=== PATIENT | female | born 1970 | race Caucasian/White ===

== ENCOUNTER 2017-06-28 12:07 | Emergency (ER) | payer SELFPAY ==
--- NOTE | 2017-06-28 12:22 | EDM.PDOC ---
ED HPI GENERAL MEDICAL PROBLEM - General Chief Complaint: Lower Extremity Injury/Pain Stated Complaint: GLASS IN HER LEFT FOOT Time Seen by Provider: 06/28/17 12:21 Source of Information: Reports: Patient History Limitations: Reports: No Limitations - History of Present Illness INITIAL COMMENTS - FREE TEXT/NARRATIVE: HISTORY AND PHYSICAL: []46-year-old female presents for pain to her foot and up her leg History of Present Illness: [] Patient stepped on a piece of glass from a broken carousel a week and a half ago. The mid ball of her foot as were the pieces is located. Patient says her and his friend tried to get out a couple days ago. She continues to have pain. History of hypertension Review of Systems: As per history of present illness and below otherwise all systems reviewed and negative. Past medical history: As per history of present illness and as reviewed below otherwise noncontributory. Surgical history: As per history of present illness and as reviewed below otherwise noncontributory. Social history: No reported history of drug or alcohol abuse. Family history: As per history of present illness and as reviewed below otherwise noncontributory. Physical exam: Alert and oriented female with good affect. Nontoxic. Speaking in full sentences without any shortness of breath HEENT: Atraumatic, normocehpalic, pupils reactive, negative for conjunctival pallor or scleral icterus, mucous membranes moist, neck supple, nontender, trachea midline. Lungs: Clear to auscultation, breath sounds equal bilaterally, chest non tender. Heart: S1S2, regular, negative for clicks, rubs, or JVD. Abdomen: Soft, nondistended, nontender. Negative for masses or hepatossplenmegaly. Negative for costovertebral tenderness. Pelvis: Stable nontender. Genitourinary: Deferred. Rectal: Deferred Extremities: Atraumatic, negative for cords or calf pain. Mid ball of her left foot has area where the skin has been compromised. Mild tenderness on palpation. Neurovascular unremarkable. Neuro: Awake, alert, oriented. Cranial nerves II through XII unremarkable. Cerebellum unremarkable. Motor and sensory unremarkable throughout. Exam nonfocal. Discussed with the patient the x-ray review and that I do not want to "Dig" into her foot without knowing where something is. Patient is agreeable to watching this area Diagnostics: [Left foot x-ray negative for any foreign body] Therapeutics: [] Impression: [Foreign-body to foot has been removed prior to arrival in ER] Plan: []Discharged to home May follow up with local painter spray My [facility] - Podiatry [address] [place] [id number] Definitive disposition and diagnosis as appropriate pending reevaluation and review of above. Onset: Sudden Duration: Week(s): (1.5 weeks ago) Left Foot Pain Score (Numeric/FACES): 9 - Related Data Allergies Allergy/AdvReac Type Severity Reaction Status Date / Time Penicillins Allergy Anaphylactic Verified 06/28/17 12:18 Shock Sulfa (Sulfonamide Allergy Anaphylactic Verified 06/28/17 12:18 Antibiotics) Shock apple juice Allergy Anaphylactic Uncoded 06/28/17 12:18 Shock Home Meds: Home Meds Hydrochlorothiazide 0 mg PO DAILY 06/28/17 [History] amLODIPine [Norvasc] 0 mg PO DAILY 06/28/17 [History] Review of Systems - Review of Systems Review Of Systems: ROS reveals no pertinent complaints other than HPI. ED EXAM, GENERAL - Physical Exam Exam: See Below (See dictation) Course - Vital Signs Last Recorded V/S: Last Vital Signs Temp 36.2 C 06/28/17 12:20 Pulse 92 06/28/17 12:20 Resp 18 06/28/17 12:20 BP 136/88 06/28/17 12:20 Pulse Ox 97 06/28/17 12:20 - Orders/Labs/Meds Orders: Active Orders 24 hr Category Date Time Status Vaccines to be Administered [RC] PER UNIT ROUTINE Care 06/28/17 12:29 Active Foot 2V Lt [CR] Stat Exams 06/28/17 12:38 Taken Meds: Medications Discontinued Medications Generic Name Dose Route Start Last Admin Trade Name Freq PRN Reason Stop Dose Admin Diphtheria/Tetanus/Acell Pertussis 0.5 ml 06/28/17 12:29 06/28/17 12:35 Adacel IM 06/28/17 12:30 0.5 ml .ONCE ONE Administration Departure - Departure Time of Disposition: 13:16 Disposition: Home, Self-Care 01 Condition: Good Clinical Impression: Foreign body foot/toe - Discharge Information Referrals: Brynn Tee DO [Primary Care Provider] - Forms: ED Department Discharge Additional Instructions: The following information is given to patients seen in the emergency department who are being discharged to home. This information is to outline your options for follow-up care. We provide all patients seen in our emergency department with a follow-up referral. The need for follow-up, as well as the timing and circumstances, are variable depending upon the specifics of your emergency department visit. If you don't have a primary care physician on staff, we will provide you with a referral. We always advise you to contact your personal physician following an emergency department visit to inform them of the circumstance of the visit and for follow-up with them and/or the need for any referrals to a consulting specialist. The emergency department will also refer you to a specialist when appropriate. This referral assures that you have the opportunity for followup care with a specialist. All of these measure are taken in an effort to provide you with optimal care, which includes your followup. Under all circumstances we always encourage you to contact your private physician who remains a resource for coordinating your care. When calling for followup care, please make the office aware that this follow-up is from your recent emergency room visit. If for any reason you are refused follow-up, please contact the [facility] emergency department at and asked to speak to the emergency department charge nurse. The x-ray obtained while in the emergency room does not show any foreign body to your foot If you continue to have problems with this area would consider seeing a painter spray My [facility] - Podiatry [address] [place] [phone] - My Orders Last 24 Hours: My Active Orders 06/28/17 12:29 Vaccines to be Administered [RC] PER UNIT ROUTINE 06/28/17 12:38 Foot 2V Lt [CR] Stat - Assessment/Plan Last 24 Hours: My Active Orders 06/28/17 12:29 Vaccines to be Administered [RC] PER UNIT ROUTINE 06/28/17 12:38 Foot 2V Lt [CR] Stat
[2017-06-28] MEDS ORDERED: Diphtheria,Pertussis(Acell),Tetanus Vaccine 0.5 ML Syringe IM ONE (12:29)
[2017-06-28 13:31] VITALS: BP 135/88
--- NOTE | 2017-06-28 14:04 | CR ---
EXAM DATE: 06/28/17 PATIENT'S AGE: 46 Patient: LATRICE SALDIVAR Facility: [place], [place] Site . Site : [id number] Study: XRay Extremity Left FOOT [id number]/30/2017 12:57:38 PM Ordering Physician: Doctor Aceves Final Report: HISTORY: Pain, glass in foot. FINDINGS: Two views of the left foot demonstrates normal bone mineralization. There is normal alignment present. No fracture line is seen. There is a small traction spur at the plantar aspect of the calcaneus. No radiopaque foreign body is identified. IMPRESSION: No radiopaque foreign body identified. Dictated by Vaishali Lombardi MD @ 06/28/2017 1:06:11 PM Dictated by: Vaishali Lombardi MD @ 06/28/2017 13:06:32 (Electronic Signature) Report Signed by Proxy. ENOC
== END 2017-06-28 13:27 | disposition home or self-care (01) ==
LOC: MW.ED 12:07
DX: S90.852A Superficial foreign body, left foot, initial encounter (principal); I10 Essential (primary) hypertension; Z79.899 Other long term (current) drug therapy; Z23 Encounter for immunization; Z88.0 Allergy status to penicillin; Z88.2 Allergy status to sulfonamides; Z91.018 Allergy to other foods; W25.XXXA Contact with sharp glass, initial encounter
CPT/HCPCS: 73620-26-LT; 73620-LT; 90471; 90715; 99283; 99283-25

== ENCOUNTER 2020-01-30 21:15 | Emergency (ER) | payer OTHER ==
[2020-01-30] MEDS ORDERED: Sodium Chloride 0.9% 500 ML IV SCH (21:30)
[2020-01-30] MEDS ORDERED: methylPREDNISolone Sodium Succinate 125 MG/2 ML SDV IVPUSH ONE (21:30)
[2020-01-30] MEDS ORDERED: LORazepam 2 MG/ML SDV IVPUSH ONE (21:55)
[2020-01-30 22:16] LABS: BLOOD UREA NITROGEN,BUN 9 mg/dL (7.0-18.0); CARBON DIOXIDE,CO2 28.2 mmol/L (21.0-32.0); CHLORIDE,CL 97 mmol/L (98-107); GLUCOSE RANDOM 121 mg/dL (74-106); POTASSIUM,K 3.8 mmol/L (3.5-5.1); SODIUM,NA 136 mmol/L (136-145)
--- NOTE | 2020-01-30 22:46 | EDM.PDOC ---
ED HPI GENERAL MEDICAL PROBLEM - General Chief Complaint: Respiratory Problem Stated Complaint: CHEST PAIN AND HARD TIME BREATHING Time Seen by Provider: 01/30/20 21:17 Source of Information: Reports: Patient History Limitations: Reports: No Limitations - History of Present Illness INITIAL COMMENTS - FREE TEXT/NARRATIVE: 49-year-old female presents the emergency room with a chief complaint of asthma exacerbation 4 times tonight. Onset: Today Duration: Day(s): Location: Reports: Chest Severity: Mild Associated Symptoms: Reports: Cough - Related Data Allergies Allergy/AdvReac Type Severity Reaction Status Date / Time Penicillins Allergy Anaphylactic Verified 01/30/20 21:26 Shock Sulfa (Sulfonamide Allergy Anaphylactic Verified 01/30/20 21:26 Antibiotics) Shock apple juice Allergy Anaphylactic Uncoded 01/30/20 21:26 Shock Home Meds: Home Meds amLODIPine [Norvasc] 0 mg PO DAILY 06/28/17 [History] hydroCHLOROthiazide [Hydrochlorothiazide] 0 mg PO DAILY 06/28/17 [History] Past Medical History HEENT History: Reports: None Cardiovascular History: Reports: Blood Clots/VTE/DVT, Hypertension Other Cardiovascular History: DVT L thigh Respiratory History: Reports: Asthma Gastrointestinal History: Reports: None Genitourinary History: Reports: None [employer] History: Reports: Musculoskeletal History: Reports: Back Pain, Chronic Neurological History: Reports: None Psychiatric History: Reports: Anxiety, Depression Endocrine/Metabolic History: Reports: None Hematologic History: Reports: None Immunologic History: Reports: None Oncologic (Cancer) History: Reports: None Dermatologic History: Reports: None - Infectious Disease History Infectious Disease History: Reports: Chicken Pox - Past Surgical History Head Surgeries/Procedures: Reports: None Musculoskeletal Surgical History: Reports: Other (See Below) Other Musculoskeletal Surgeries/Procedures:: knee sx Social & Family History - Family History Family Medical History: Noncontributory - Tobacco Use Smoking Status *Q: Former Smoker Used Tobacco, but Quit: Yes Month/Year Tobacco Last Used: 01/27/2020 - Recreational Drug Use Recreational Drug Use: No ED ROS GENERAL - Review of Systems Review Of Systems: See Below Constitutional: Reports: No Symptoms HEENT: Reports: No Symptoms Respiratory: Reports: No Symptoms, Wheezing, Cough Cardiovascular: Reports: No Symptoms Endocrine: Reports: No Symptoms GI/Abdominal: Reports: No Symptoms : Reports: No Symptoms Musculoskeletal: Reports: No Symptoms Skin: Reports: No Symptoms Neurological: Reports: No Symptoms Psychiatric: Reports: No Symptoms Hematologic/Lymphatic: Reports: No Symptoms Immunologic: Reports: No Symptoms ED EXAM, GENERAL - Physical Exam Exam: See Below Exam Limited By: No Limitations General Appearance: Alert, WD/WN, No Apparent Distress Eye Exam: Bilateral Eye: Normal Fundi, Normal Inspection Ears: Normal External Exam, Normal Canal, Normal TMs Ear Exam: Bilateral Ear: Auricle Normal, Canal Normal Nose: Normal Inspection, Normal Mucosa Throat/Mouth: Normal Inspection, Normal Lips, Normal Teeth, Normal Oropharynx, Normal Voice Head: Atraumatic, Normocephalic Neck: Normal Inspection, Supple Respiratory/Chest: No Respiratory Distress, Lungs Clear, Normal Breath Sounds, No Accessory Muscle Use, Chest Non-Tender GI/Abdominal: Normal Bowel Sounds (Female) Exam: Deferred Rectal (Female) Exam: Deferred Back Exam: Normal Inspection, Full Range of Motion Extremities: Normal Inspection, Normal Range of Motion, No Pedal Edema, Normal Capillary Refill Neurological: Alert, Oriented, CN II-XII Intact, Normal Cognition, Normal Reflexes, No Motor/Sensory Deficits Psychiatric: Normal Affect, Normal Mood Skin Exam: Warm, Intact, Normal Color, Decubitus Lymphatic: No Adenopathy Course - Vital Signs Last Recorded V/S: Last Vital Signs Temp 96.3 F L 01/30/20 21:23 Pulse 85 01/30/20 21:23 Resp 18 01/30/20 21:23 BP 168/93 H 01/30/20 21:23 Pulse Ox 97 01/30/20 21:23 - Orders/Labs/Meds Orders: Active Orders 24 hr Category Date Time Status Sodium Chloride 0.9% [Normal Saline] 500 ml Med 01/30/20 21:30 Active IV ASDIRECTED Medication Orders Sodium Chloride (Normal Saline) 500 mls @ 150 mls/hr IV ASDIRECTED JENNIFER Last Admin: 01/30/20 21:47 Dose: 150 mls/hr Labs: Laboratory Tests 01/30/20 01/30/20 Range/Units 21:47 21:47 WBC 11.94 H (4.0-11.0) K/uL RBC 4.24 L (4.30-5.90) M/uL Hgb 12.5 (12.0-16.0) g/dL Hct 39.2 (36.0-46.0) % MCV 92.5 (80.0-98.0) fL MCH 29.5 (27.0-32.0) pg MCHC 31.9 (31.0-37.0) g/dL RDW Std Deviation 44.1 (28.0-62.0) fl RDW Coeff of Akash 13 (11.0-15.0) % Plt Count 604 H (150-400) K/uL MPV 9.00 (7.40-12.00) fL Neut % (Auto) 72.4 (48.0-80.0) % Lymph % (Auto) 18.3 (16.0-40.0) % Gentry % (Auto) 7.2 (0.0-15.0) % Eos % (Auto) 1.8 (0.0-7.0) % Baso % (Auto) 0.3 (0.0-1.5) % Neut # (Auto) 8.7 H (1.4-5.7) K/uL Lymph # (Auto) 2.2 (0.6-2.4) K/uL Gentry # (Auto) 0.9 H (0.0-0.8) K/uL Eos # (Auto) 0.2 (0.0-0.7) K/uL Baso # (Auto) 0.0 (0.0-0.1) K/uL Nucleated RBC % 0.0 /100WBC Nucleated RBCs # 0 K/uL Sodium 136 (136-145) mmol/L Potassium 3.8 (3.5-5.1) mmol/L Chloride 97 L (98-107) mmol/L Carbon Dioxide 28.2 (21.0-32.0) mmol/L BUN 9 (7.0-18.0) mg/dL Creatinine 0.8 (0.6-1.0) mg/dL Est Cr Clr Drug Dosing 70.33 mL/min Estimated GFR (MDRD) > 60.0 ml/min Glucose 121 H (74-106) mg/dL Calcium 9.5 (8.5-10.1) mg/dL Total Bilirubin 0.1 L (0.2-1.0) mg/dL AST 13 L (15-37) IU/L ALT 24 (14-63) IU/L Alkaline Phosphatase 102 (46-116) U/L Total Protein 7.7 (6.4-8.2) g/dL Albumin 3.1 L (3.4-5.0) g/dL Globulin 4.6 H (2.6-4.0) g/dL Albumin/Globulin Ratio 0.7 L (0.9-1.6) Meds: Medications Generic Name Dose Route Start Last Admin Trade Name Freq PRN Reason Stop Dose Admin Sodium Chloride 500 mls @ 150 mls/hr 01/30/20 21:30 01/30/20 21:47 Normal Saline IV 150 mls/hr ASDIRECTED JENNIFER Administration Discontinued Medications Generic Name Dose Route Start Last Admin Trade Name Freq PRN Reason Stop Dose Admin Lorazepam 0.5 mg 01/30/20 21:55 01/30/20 22:04 Ativan IVPUSH 01/30/20 21:56 0.5 mg ONETIME ONE Administration Methylprednisolone Sodium Succinate 125 mg 01/30/20 21:30 01/30/20 21:47 Solu-Medrol IVPUSH 01/30/20 21:31 125 mg ONETIME ONE Administration Departure - Departure Time of Disposition: 22:45 Disposition: Home, Self-Care 01 Condition: Good Clinical Impression: Acute asthma - Discharge Information Instructions: Shortness of Breath, Adult, [id number], Acute Bronchitis, Adult , [id number] Referrals: Brynn Tee DO [Primary Care Provider] - Sepsis Event Note - Evaluation Sepsis Screening Result: No Definite Risk - Focused Exam Vital Signs: Vital Signs Temp Pulse Resp BP Pulse Ox 01/30/20 21:23 96.3 F L 85 18 168/93 H 97 Date Exam was Performed: 01/30/20 Time Exam was Performed: 22:41 - My Orders Last 24 Hours: My Active Orders 01/30/20 21:30 Sodium Chloride 0.9% [Normal Saline] 500 ml IV ASDIRECTED - Assessment/Plan Last 24 Hours: My Active Orders 01/30/20 21:30 Sodium Chloride 0.9% [Normal Saline] 500 ml IV ASDIRECTED
[2020-01-30 23:14] VITALS: BP 140/79; PULSE 78
== END 2020-01-30 23:13 | disposition home or self-care (01) ==
LOC: MW.ED 21:15
DX: J45.909 Unspecified asthma, uncomplicated (principal); I10 Essential (primary) hypertension; Z88.0 Allergy status to penicillin; Z88.2 Allergy status to sulfonamides; Z91.018 Allergy to other foods; Z87.891 Personal history of nicotine dependence
CPT/HCPCS: 36415; 80053; 85025; 96361; 96374; 96375; 99284; J2060; J2930; J7030

== ENCOUNTER 2020-08-14 15:02 | Inpatient (IN) | payer OTHER ==
[2020-08-14] MEDS ORDERED: Sodium Chloride 0.9% 1,000 ML IV ONE (15:43)
[2020-08-14] MEDS ORDERED: Ondansetron 4 MG/2 ML SDV IVPUSH ONE (15:45)
[2020-08-14] MEDS ORDERED: Morphine 4 MG/ML Syringe IVPUSH ONE (15:45)
[2020-08-14 16:40] LABS: CARBON DIOXIDE,CO2 28.7 mmol/L (21.0-32.0); POTASSIUM,K 3.6 mmol/L (3.5-5.1)
[2020-08-14] MEDS ORDERED: Iopamidol 755 MG/ML 500 ML Multipack Bottle IVPUSH ONE (17:04)
--- NOTE | 2020-08-14 18:08 | EDM.PDOC ---
ED HPI GENERAL MEDICAL PROBLEM - General Chief Complaint: Gastrointestinal Problem Stated Complaint: SEVERE ABDOMINAL PAIN Time Seen by Provider: 08/14/20 15:07 Source of Information: Reports: Patient History Limitations: Reports: No Limitations - History of Present Illness INITIAL COMMENTS - FREE TEXT/NARRATIVE: HISTORY AND PHYSICAL: History of present illness: Patient is a 49-year-old female who presents to the emergency room with complaints of intermittent abdominal pain over the past 5 days. She states the pain is sharp stabbing pain that "comes in waves". States that is located in the umbilical region although does radiate variously throughout her abdomen. She has had nausea, vomiting and diarrhea. Patient denies any fever, chills, headache, change in vision, syncope or near syncope. Denies any chest pain, back pain, shortness of breath or cough. Denies any concerns of STDs, chance of or dysuria. Has not noted any blood in urine or stool. Denies any vaginal discharge or bleeding. Patient has been eating and drinking appropriately. Review of systems: As per history of present illness and below otherwise all systems reviewed and negative. Past medical history: As per history of present illness and as reviewed below otherwise noncontributory. Surgical history: As per history of present illness and as reviewed below otherwise noncontri butory. Social history: See social history for further information Family history: As per history of present illness and as reviewed below otherwise noncontributory. Physical exam: General: Well developed and well nourished. Alert and orientated x 3. Nontoxic in appearance and in no acute distress. Vital signs are stable and have been reviewed by me. Nursing notes were reviewed. HEENT: Atraumatic, normocephalic, pupils equal and reactive bilaterally, negative for conjunctival pallor or scleral icterus, mucous membranes moist, TMs normal bilaterally, throat clear, neck supple, nontender, trachea midline. No drooling or trismus noted. No meningeal signs. No hot potato voice noted. Lungs: Clear to auscultation, breath sounds equal bilaterally, chest nontender. Normal work of breathing, no accessory muscles used. Heart: S1S2, regular rate and rhythm without overt murmur Abdomen: Soft, nondistended, mid abdominal tenderness. Negative for masses or hepatosplenomegaly. Negative for costovertebral tenderness. Skin: Intact, warm, dry. No lesions or rashes noted. Hematologic: No petechiae or purpra. Mucosa appropriate color and normal nail bed color and refill. Extremities: Atraumatic, moves all extremities per self without difficulty or deficits, negative for cords or calf pain. Neurovascular unremarkable. Neuro: Awake, alert, oriented. Cranial nerves II through XII unremarkable. Cerebellum unremarkable. Motor and sensory unremarkable throughout. Exam nonfocal. Psychiatric: Mood and affect are appropriate. Normal thought process. Answering questions appropriately. Notes: Findings likely represent acute diverticulitis with a small abscess formation. There is mild fluid-filled distention of the more proximal colon. The transition between the normal colon and area of abnormality is fairly abrupt. Although unlikely, neoplasm cannot be entirely excluded and colonoscopy is recommended for further evaluation after the patient's acute symptoms have resolved. I did contact Dr. Bone, general surgeon on-call about this patient. She will come in and look at the patient's CT scan and evaluate this patient. I have spoken with the patient/caregiver and discussed today's findings, in addition to providing specific details for plan of care. 1900: Lizandro in with patient. Patient will be admitted with IV antibiotics for observation. Diagnostics: CBC, CMP, UA, Lipase, CT abd/pelvis Therapeutics: IV fluids, Zofran, Dilaudid, Cipro, Flagyl Impression: Acute diverticulitis Plan: Observation admission to Med/Surg Definitive disposition and diagnosis as appropriate pending reevaluation and review of above. - Related Data Allergies Allergy/AdvReac Type Severity Reaction Status Date / Time diphenhydramine Allergy Other Verified 08/14/20 19:44 [From Benadryl] Penicillins Allergy Anaphylactic Verified 08/14/20 15:42 Shock Sulfa (Sulfonamide Allergy Anaphylactic Verified 08/14/20 15:42 Antibiotics) Shock apple juice Allergy Anaphylactic Uncoded 08/14/20 15:42 Shock Home Meds: Home Meds hydroCHLOROthiazide [Hydrochlorothiazide] 0 mg PO DAILY 06/28/17 [History] Magnesium 250 mg PO DAILY 08/14/20 [History] Nebivolol [Bystolic] 15 mg PO DAILY 08/14/20 [History] Potassium Chloride 10 meq PO DAILY 08/14/20 [History] buPROPion [buPROPion XL] 300 mg PO BEDTIME 08/14/20 [History] Past Medical History HEENT History: Reports: None Cardiovascular History: Reports: Blood Clots/VTE/DVT, Hypertension Other Cardiovascular History: DVT L thigh Respiratory History: Reports: Asthma Gastrointestinal History: Reports: None Genitourinary History: Reports: None 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 History: Reports: Musculoskeletal History: Reports: Back Pain, Chronic Neurological History: Reports: None Psychiatric History: Reports: Anxiety, Depression Endocrine/Metabolic History: Reports: None Hematologic History: Reports: None Immunologic History: Reports: None Oncologic (Cancer) History: Reports: None Dermatologic History: Reports: None - Infectious Disease History Infectious Disease History: Reports: Chicken Pox - Past Surgical History Head Surgeries/Procedures: Reports: None Musculoskeletal Surgical History: Reports: Other (See Below) Other Musculoskeletal Surgeries/Procedures:: knee sx Social & Family History - Family History Family Medical History: Noncontributory - Tobacco Use Tobacco Use Status *Q: Unknown Ever Used Tobacco ED ROS GENERAL - Review of Systems Review Of Systems: Comprehensive ROS is negative, except as noted in HPI. ED EXAM, GI/ABD - Physical Exam Exam: See Below (See dictation) Course - Vital Signs Last Recorded V/S: Last Vital Signs Temp 96.6 F L 08/14/20 19:26 Pulse 69 08/14/20 19:26 Resp 18 08/14/20 19:26 BP 110/55 L 08/14/20 19:26 Pulse Ox 92 L 08/14/20 19:26 - Orders/Labs/Meds Orders: Active Orders 24 hr Category Date Time Status Patient Status [ADT] Routine ADT 08/14/20 19:29 Active Antiembolic Devices [RC] .Routine Care 08/14/20 19:34 Active Intake and Output [RC] Q4HR Care 08/14/20 19:29 Active May Shower [RC] ASDIRECTED Care 08/14/20 19:29 Active Notify Provider Intake and Out [RC] PRN Care 08/14/20 19:30 Active Notify Provider Vital Signs [RC] PRN Care 08/14/20 19:30 Active Oxygen Therapy [RC] PRN Care 08/14/20 19:29 Active RT Aerosol Therapy [RC] ASDIRECTED Care 08/14/20 19:41 Active RT Incentive Spirometry [RC] Q1HWA Care 08/14/20 19:29 Active Up ad Letha [RC] ASDIRECTED Care 08/14/20 19:29 Active VTE/DVT Education [RC] PER UNIT ROUTINE Care 08/14/20 19:34 Active Vital Signs [RC] PER UNIT ROUTINE Care 08/14/20 19:29 Active Nothing Per Oral Diet [DIET] Diet 08/14/20 Dinner Active CAMPYLOBACTER CULT [MREF] Stat Lab 08/14/20 15:43 Ordered CBC WITH AUTO DIFF [HEME] AM Lab 08/15/20 05:11 Ordered CMP [COMPREHENSIVE METABOLIC PN,CMP] [CHEM] AM Lab 08/15/20 05:11 Ordered CORONAVIRUS COVID-19 DUNIA [MOLEC] Stat Lab 08/14/20 19:25 Received OVA & PARASITES BY IMMUNOASSAY [MREF] Stat Lab 08/14/20 15:43 Ordered STOOL CULTURE/SHIGA TOXIN [MREF] Stat Lab 08/14/20 15:43 Ordered Albuterol/Ipratropium [DuoNeb 3.0-0.5 MG/3 ML] Med 08/14/20 19:40 Active 3 ml NEB Q4HRRT PRN Ciprofloxacin in D5W [Cipro in D5W 400 MG/200 ML] 400 Med 08/14/20 19:00 Active mg Premix Bag 1 bag IV Q12H Ciprofloxacin in D5W [Cipro in D5W 400 MG/200 ML] 400 Med 08/15/20 08:00 Active mg Premix Bag 1 bag IV Q12H Heparin Sodium Med 08/14/20 19:30 Active 5,000 units SUBCUT Q8H Lactated Ringers [Ringers, Lactated] 1,000 ml Med 08/14/20 19:30 Active IV ASDIRECTED Morphine Med 08/14/20 19:29 Active 2 mg IVPUSH Q1H PRN Ondansetron [Zofran] Med 08/14/20 19:29 Active 4 mg IVPUSH Q6H PRN Promethazine [Phenergan] Med 08/14/20 19:29 Active 25 mg IM Q6H PRN Sodium Chloride 0.9% [Normal Saline] Med 08/14/20 19:29 Active 10 ml IV ASDIRECTED PRN Sodium Chloride 0.9% [Saline Flush] Med 08/14/20 19:29 Active 10 ml FLUSH ASDIRECTED PRN Sodium Chloride 0.9% [Saline Flush] Med 08/14/20 19:29 Active 2.5 ml FLUSH ASDIRECTED PRN buPROPion [Wellbutrin XL] Med 08/15/20 19:46 Active 300 mg PO DAILY metroNIDAZOLE/Normal Saline [Flagyl 500 MG in NS 100 ML Med 08/14/20 19:43 Active ] 500 mg Premix Bag 1 bag IV QID DVT/VTE Prophylaxis Reflex [OM.PC] Routine Oth 08/14/20 19:29 Ordered Peripheral IV Insertion Adult [OM.PC] Urgent Oth 08/14/20 19:29 Ordered Resuscitation Status Routine Resus Stat 08/14/20 19:29 Ordered Medication Orders Albuterol/Ipratropium (Duoneb 3.0-0.5 Mg/3 Ml) 3 ml NEB Q4HRRT PRN PRN Reason: Shortness of Breath Bupropion HCl (Wellbutrin Xl) 300 mg PO DAILY JENNIFER Heparin Sodium (Porcine) (Heparin Sodium) 5,000 units SUBCUT Q8H JENNIFER Ciprofloxacin/Dextrose 400 mg/ (Premix) 200 mls @ 200 mls/hr IV Q12H JENNIFER Last Admin: 08/14/20 19:12 Dose: 200 mls/hr Documented by: Lactated Ringer's (Ringers, Lactated) 1,000 mls @ 125 mls/hr IV ASDIRECTED JENNIFER Ciprofloxacin/Dextrose 400 mg/ (Premix) 200 mls @ 200 mls/hr IV Q12H JENNIFER Metronidazole 500 mg/ Premix 100 mls @ 100 mls/hr IV QID ONE Stop: 08/14/20 19:56 Morphine Sulfate (Morphine) 2 mg IVPUSH Q1H PRN PRN Reason: Pain (severe 7-10) Ondansetron HCl (Zofran) 4 mg IVPUSH Q6H PRN PRN Reason: Nausea/Vomiting Promethazine HCl (Phenergan) 25 mg IM Q6H PRN PRN Reason: Nausea Sodium Chloride (Saline Flush) 10 ml FLUSH ASDIRECTED PRN PRN Reason: Keep Vein Open Sodium Chloride (Saline Flush) 2.5 ml FLUSH ASDIRECTED PRN PRN Reason: Keep Vein Open Sodium Chloride (Normal Saline) 10 ml IV ASDIRECTED PRN PRN Reason: IV Use Labs: Laboratory Tests 08/14/20 08/14/20 08/14/20 Range/Units 15:51 15:51 16:01 WBC 9.02 (4.0-11.0) K/uL RBC 5.01 (4.30-5.90) M/uL Hgb 15.2 (12.0-16.0) g/dL Hct 47.6 H (36.0-46.0) % MCV 95.0 (80.0-98.0) fL MCH 30.3 (27.0-32.0) pg MCHC 31.9 (31.0-37.0) g/dL RDW Std Deviation 47.0 (28.0-62.0) fl RDW Coeff of Akash 14 (11.0-15.0) % Plt Count 492 H (150-400) K/uL MPV 9.50 (7.40-12.00) fL Neut % (Auto) 73.5 (48.0-80.0) % Lymph % (Auto) 14.7 L (16.0-40.0) % [place] % (Auto) 10.5 (0.0-15.0) % Eos % (Auto) 1.1 (0.0-7.0) % Baso % (Auto) 0.2 (0.0-1.5) % Neut # (Auto) 6.6 H (1.4-5.7) K/uL Lymph # (Auto) 1.3 (0.6-2.4) K/uL [place] # (Auto) 1.0 H (0.0-0.8) K/uL Eos # (Auto) 0.1 (0.0-0.7) K/uL Baso # (Auto) 0.0 (0.0-0.1) K/uL Nucleated RBC % 0.0 /100WBC Nucleated RBCs # 0 K/uL Lactate (0.20-2.00) mmol/L Sodium (136-145) mmol/L Potassium (3.5-5.1) mmol/L Chloride (98-107) mmol/L Carbon Dioxide (21.0-32.0) mmol/L BUN (7.0-18.0) mg/dL Creatinine (0.6-1.0) mg/dL Est Cr Clr Drug Dosing mL/min Estimated GFR (MDRD) ml/min Glucose (74-106) mg/dL Calcium (8.5-10.1) mg/dL Total Bilirubin (0.2-1.0) mg/dL AST (15-37) IU/L ALT (14-63) IU/L Alkaline Phosphatase (46-116) U/L Total Protein (6.4-8.2) g/dL Albumin (3.4-5.0) g/dL Globulin (2.6-4.0) g/dL Albumin/Globulin Ratio (0.9-1.6) Lipase (73-393) U/L Urine Color YELLOW Urine Appearance CLEAR Urine pH 6.0 (5.0-8.0) Ur Specific Bucks 1.015 (1.001-1.035) Urine Protein NEGATIVE (NEGATIVE) mg/dL Urine Glucose (UA) NEGATIVE (NEGATIVE) mg/dL Urine Ketones NEGATIVE (NEGATIVE) mg/dL Urine Occult Blood TRACE-INTACT H (NEGATIVE) Urine Nitrite NEGATIVE (NEGATIVE) Urine Bilirubin NEGATIVE (NEGATIVE) Urine Urobilinogen 0.2 (<2.0) EU/dL Ur Leukocyte Esterase NEGATIVE (NEGATIVE) Urine RBC 0-1 (0-2/HPF) Urine WBC 0-1 (0-5/HPF) Ur Epithelial Cells RARE (NONE-FEW) Urine Bacteria RARE (NEGATIVE) Urine HCG, Qual NEGATIVE (NEGATIVE) 08/14/20 08/14/20 Range/Units 16:01 19:46 WBC (4.0-11.0) K/uL RBC (4.30-5.90) M/uL Hgb (12.0-16.0) g/dL Hct (36.0-46.0) % MCV (80.0-98.0) fL MCH (27.0-32.0) pg MCHC (31.0-37.0) g/dL RDW Std Deviation (28.0-62.0) fl RDW Coeff of Akash (11.0-15.0) % Plt Count (150-400) K/uL MPV (7.40-12.00) fL Neut % (Auto) (48.0-80.0) % Lymph % (Auto) (16.0-40.0) % [place] % (Auto) (0.0-15.0) % Eos % (Auto) (0.0-7.0) % Baso % (Auto) (0.0-1.5) % Neut # (Auto) (1.4-5.7) K/uL Lymph # (Auto) (0.6-2.4) K/uL [place] # (Auto) (0.0-0.8) K/uL Eos # (Auto) (0.0-0.7) K/uL Baso # (Auto) (0.0-0.1) K/uL Nucleated RBC % /100WBC Nucleated RBCs # K/uL Lactate 0.8 (0.20-2.00) mmol/L Sodium 135 L (136-145) mmol/L Potassium 3.6 (3.5-5.1) mmol/L Chloride 96 L (98-107) mmol/L Carbon Dioxide 28.7 (21.0-32.0) mmol/L BUN 14 (7.0-18.0) mg/dL Creatinine 1.0 (0.6-1.0) mg/dL Est Cr Clr Drug Dosing 55.06 mL/min Estimated GFR (MDRD) 58.5 ml/min Glucose 96 (74-106) mg/dL Calcium 9.8 (8.5-10.1) mg/dL Total Bilirubin 0.4 (0.2-1.0) mg/dL AST 25 (15-37) IU/L ALT 41 (14-63) IU/L Alkaline Phosphatase 152 H (46-116) U/L Total Protein 9.1 H (6.4-8.2) g/dL Albumin 4.0 (3.4-5.0) g/dL Globulin 5.1 H (2.6-4.0) g/dL Albumin/Globulin Ratio 0.8 L (0.9-1.6) Lipase 46 L (73-393) U/L Urine Color Urine Appearance Urine pH (5.0-8.0) Ur Specific Bucks (1.001-1.035) Urine Protein (NEGATIVE) mg/dL Urine Glucose (UA) (NEGATIVE) mg/dL Urine Ketones (NEGATIVE) mg/dL Urine Occult Blood (NEGATIVE) Urine Nitrite (NEGATIVE) Urine Bilirubin (NEGATIVE) Urine Urobilinogen (<2.0) EU/dL Ur Leukocyte Esterase (NEGATIVE) Urine RBC (0-2/HPF) Urine WBC (0-5/HPF) Ur Epithelial Cells (NONE-FEW) Urine Bacteria (NEGATIVE) Urine HCG, Qual (NEGATIVE) Meds: Medications Generic Name Dose Route Start Last Admin Trade Name Nancy PRN Reason Stop Dose Admin Albuterol/Ipratropium 3 ml 08/14/20 19:40 Duoneb 3.0-0.5 Mg/3 Ml NEB Q4HRRT PRN Shortness of Breath Bupropion HCl 300 mg 08/15/20 19:46 Wellbutrin Xl PO DAILY JENNIFER Heparin Sodium (Porcine) 5,000 units 08/14/20 19:30 Heparin Sodium SUBCUT Q8H JENNIFER Ciprofloxacin/Dextrose 400 mg/ 200 mls @ 200 mls/hr 08/14/20 19:00 08/14/20 19:12 Premix IV 200 mls/hr Q12H JENNIFER Administration Lactated Ringer's 1,000 mls @ 125 mls/hr 08/14/20 19:30 Ringers, Lactated IV ASDIRECTED JENNIFER Ciprofloxacin/Dextrose 400 mg/ 200 mls @ 200 mls/hr 08/15/20 08:00 Premix IV Q12H JENNIFER Metronidazole 500 mg/ Premix 100 mls @ 100 mls/hr 08/14/20 19:43 IV 08/14/20 19:56 QID ONE Morphine Sulfate 2 mg 08/14/20 19:29 Morphine IVPUSH Q1H PRN Pain (severe 7-10) Ondansetron HCl 4 mg 08/14/20 19:29 Zofran IVPUSH Q6H PRN Nausea/Vomiting Promethazine HCl 25 mg 08/14/20 19:29 Phenergan IM Q6H PRN Nausea Sodium Chloride 10 ml 08/14/20 19:29 Saline Flush FLUSH ASDIRECTED PRN Keep Vein Open Sodium Chloride 2.5 ml 08/14/20 19:29 Saline Flush FLUSH ASDIRECTED PRN Keep Vein Open Sodium Chloride 10 ml 08/14/20 19:29 Normal Saline IV ASDIRECTED PRN IV Use Discontinued Medications Generic Name Dose Route Start Last Admin Trade Name Nancy PRN Reason Stop Dose Admin Hydromorphone HCl 1 mg 08/14/20 18:38 08/14/20 19:12 Dilaudid IVPUSH 08/14/20 18:39 1 mg ONETIME ONE Administration Sodium Chloride 1,000 mls @ 999 mls/hr 08/14/20 15:43 08/14/20 16:00 Normal Saline IV 08/14/20 16:43 999 mls/hr STAT ONE Administration Metronidazole 500 mg/ Premix 100 mls @ 100 mls/hr 08/14/20 18:57 08/14/20 19:13 IV 08/14/20 19:56 100 mls/hr ONETIME ONE Administration Iopamidol 100 ml 08/14/20 17:04 08/14/20 17:04 Isovue Multipack-370 (76%) IVPUSH 08/14/20 17:05 100 ml ONETIME ONE Administration Metoprolol Tartrate 5 mg 08/14/20 19:47 Lopressor IVPUSH Q4H PRN Hypertension Morphine Sulfate 4 mg 08/14/20 15:45 08/14/20 16:01 Morphine IVPUSH 08/14/20 15:46 4 mg ONETIME ONE Administration Ondansetron HCl 4 mg 08/14/20 15:45 08/14/20 16:00 Zofran IVPUSH 08/14/20 15:46 4 mg ONETIME ONE Administration Departure - Departure Time of Disposition: 19:34 Disposition: Refer to Observation Clinical Impression: Acute diverticulitis - Discharge Information Referrals: Brynn Tee DO [Primary Care Provider] - Forms: ED Department Discharge Sepsis Event Note (ED) - Evaluation Sepsis Screening Result: No Definite Risk - Focused Exam Vital Signs: Vital Signs Temp Pulse Resp BP Pulse Ox 08/14/20 19:26 96.6 F L 69 18 110/55 L 92 L 08/14/20 17:57 67 18 118/73 97 08/14/20 16:39 66 16 125/78 97 08/14/20 15:39 97.0 F 70 16 132/97 H 97 - My Orders Last 24 Hours: My Active Orders 08/14/20 15:43 CAMPYLOBACTER CULT [MREF] Stat OVA & PARASITES BY IMMUNOASSAY [MREF] Stat STOOL CULTURE/SHIGA TOXIN [MREF] Stat 08/14/20 19:00 Ciprofloxacin in D5W [Cipro in D5W 400 MG/200 ML] 400 mg Premix Bag 1 bag IV Q12H - Assessment/Plan Last 24 Hours: My Active Orders 08/14/20 15:43 CAMPYLOBACTER CULT [MREF] Stat OVA & PARASITES BY IMMUNOASSAY [MREF] Stat STOOL CULTURE/SHIGA TOXIN [MREF] Stat 08/14/20 19:00 Ciprofloxacin in D5W [Cipro in D5W 400 MG/200 ML] 400 mg Premix Bag 1 bag IV Q12H
--- NOTE | 2020-08-14 18:29 | CT ---
INDICATION: Abdominal pain TECHNIQUE: CT abdomen and pelvis acquired 100 cc Isovue 370 IV contrast. COMPARISON: None FINDINGS: Lower chest: Coronary artery calcifications. Liver: Unremarkable. Spleen: Unremarkable. Pancreas: Unremarkable. Gallbladder and bile ducts: Unremarkable. Adrenal glands: Unremarkable. Kidneys: Unremarkable. GI tract: Mild diverticulosis. There is an approximately 11 cm long segment proximal to mid descending colon that demonstrates mild wall thickening and pericolonic fat stranding. There are few diverticula in this region. There is a 1.2 cm fluid collection directly adjacent to the wall of the proximal descending colon, best seen on image 106 series 204. There is mild fluid filled distention of the more proximal colon. The transition between the mildly dilated, fluid-filled colon and the affected portion of the descending colon is abrupt. The appendix is normal. Vascular structures: Minimal atherosclerotic disease. Lymph nodes: Unremarkable. Miscellaneous: Unremarkable. No free air or significant free fluid. Pelvic Organs: Unremarkable. Bones: Unremarkable for age. IMPRESSION: Findings likely represent acute diverticulitis with small abscess formation. There is mild fluid filled distention of the more proximal colon. The transition between the normal colon and area of abnormality is fairly abrupt. Although unlikely, neoplasm cannot be entirely excluded and colonoscopy is recommended for further evaluation after the patient`s acute symptoms have resolved. Coronary artery disease. Findings discussed with Bulmaro Valles NP at 6:25 p.m. on August 14, 2020. Please note that all CT scans at this facility use dose modulation, iterative reconstruction, and/or weight-based dosing when appropriate to reduce radiation dose to as low as reasonably achievable. Dictated by Lucero Levine MD @ Aug 14 2020 6:13PM Signed by Dr. Lucero Levine @ Aug 14 2020 6:28PM
[2020-08-14] MEDS ORDERED: HYDROmorphone 1 MG/ML Syringe IVPUSH ONE (18:38)
[2020-08-14] MEDS ORDERED: metroNIDAZOLE/Normal Saline 500 MG in Premix Bag 1 BAG IV ONE ×2 (18:57→19:43)
[2020-08-14] MEDS ORDERED: Ciprofloxacin in D5W 400 MG in Premix Bag 1 BAG IV SCH ×2 (19:00)
[2020-08-14] MEDS ORDERED: Sodium Chloride 0.9% 10 ML Syringe FLUSH PRN (19:29)
[2020-08-14] MEDS ORDERED: Promethazine 25 MG/ML SDV IM PRN (19:29)
[2020-08-14] MEDS ORDERED: Sodium Chloride 0.9% 2.5 ML Syringe FLUSH PRN (19:29)
[2020-08-14] MEDS ORDERED: Sodium Chloride 0.9% 10 ML SDV IV PRN (19:29)
[2020-08-14] MEDS ORDERED: Albuterol/Ipratropium 3.0-0.5 MG/3 ML Neb Soln NEB PRN (19:40)
[2020-08-14] MEDS ORDERED: Metoprolol Tartrate 5 MG/5 ML SDV IVPUSH PRN (19:47)
--- NOTE | 2020-08-14 20:00 | PCM.HP.2 ---
H&P History of Present Illness - General Date of Service: 08/14/20 Admit Problem/Dx: Admission Diagnosis/Problem Admission Diagnosis/Problem Diverticulitis Source of Information: Patient History Limitations: Reports: No Limitations - History of Present Illness Initial Comments - Free Text/Narative: Patient is a 49 year old female who presents today with abdominal pain. She developed the pain acutely 5 days ago. She denies dietary changes or travel. The pain is located on the left side of her abdomen and radiates to the midline. She developed an acute change in her bowel habits 10 months ago. She suddenly became constipated and felt some pain along the left upper side of her abdomen. She attributed this to a change in her BP medication. She was told by her primary at the time to take miralax. An abdominal xray was performed which was grossly normal. She denies any melena or hematochezia. She has never had a colonoscopy and denies any family history of colon cancer. Her current pain kept getting worse, so she took an OTC laxative. She had several watery small bowel movements after that but has had nothing since. She developed nausea and vomiting. She c/o subjective fevers, chills and diaphoresis. She also felt bloated. She was unable to tolerate food. The pain persisted so she presented to the ER. She is still passing gas. Her past medical history is significant for CHANDAN (prescribed CPAP but not using), HTN, asthma, former smoker (recently quit), history of DVT during , and chronic back pain. Her vital signs on presentation were normal. She had lab work performed that showed no evidence of a leukocytosis. SHe had mild hyponatremia and hypoch loremia. BUN/Cr were normal. She underwent a CT scan that showed thickening of the descending colon associated with diverticuli. There was a small fluid collection next to this area concerning for small 1.2 cm abscess. The radiologist favored acute diverticulitis, but made mention that that area of thickening was abrupt. She also has dilation of the colon upstream from this. - Related Data Allergies/Adverse Reactions: Allergies Allergy/AdvReac Type Severity Reaction Status Date / Time diphenhydramine Allergy Other Verified 08/14/20 19:44 [From Benadryl] Penicillins Allergy Anaphylactic Verified 08/14/20 15:42 Shock Sulfa (Sulfonamide Allergy Anaphylactic Verified 08/14/20 15:42 Antibiotics) Shock apple juice Allergy Anaphylactic Uncoded 08/14/20 15:42 Shock Home Medications: Home Meds hydroCHLOROthiazide [Hydrochlorothiazide] 25 mg PO DAILY 06/28/17 [History] Magnesium 250 mg PO DAILY 08/14/20 [History] Nebivolol [Bystolic] 15 mg PO DAILY 08/14/20 [History] Potassium Chloride 10 meq PO DAILY 08/14/20 [History] buPROPion [buPROPion XL] 300 mg PO BEDTIME 08/14/20 [History] Past Medical History HEENT History: Reports: None Cardiovascular History: Reports: Blood Clots/VTE/DVT, Hypertension Other Cardiovascular History: DVT L thigh Respiratory History: Reports: Asthma, Other (See Below) (CHANDAN) Gastrointestinal History: Reports: None Genitourinary History: Reports: None 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 History: Reports: Musculoskeletal History: Reports: Back Pain, Chronic Neurological History: Reports: None Psychiatric History: Reports: Anxiety, Depression Endocrine/Metabolic History: Reports: None Hematologic History: Reports: None Immunologic History: Reports: None Oncologic (Cancer) History: Reports: None Dermatologic History: Reports: None - Infectious Disease History Infectious Disease History: Reports: Chicken Pox - Past Surgical History Head Surgeries/Procedures: Reports: None Female Surgical History: Reports: D&C Musculoskeletal Surgical History: Reports: Other (See Below) Other Musculoskeletal Surgeries/Procedures:: knee sx Social & Family History - Family History Family Medical History: Noncontributory - Tobacco Use Tobacco Use Status *Q: Unknown Ever Used Tobacco H&P Review of Systems - Review of Systems: Review Of Systems: Comprehensive ROS is negative, except as noted in HPI. Exam - Exam Exam: See Below - Vital Signs Vital Signs: Last Vital Signs Temp 35.9 C L 08/14/20 19:26 Pulse 69 08/14/20 19:26 Resp 18 08/14/20 19:26 BP 110/55 L 08/14/20 19:26 Pulse Ox 92 L 08/14/20 19:26 Weight: 68.039 kg - Exam General: Alert, Oriented, Cooperative HEENT: Conjunctiva Clear, Mucosa Moist & [place], Posterior Pharynx Clear Neck: Supple Lungs: Clear to Auscultation, Normal Respiratory Effort Cardiovascular: Regular Rate, Regular Rhythm GI/Abdominal Exam: Soft, Non-Tender, No Distention, No Mass. No: Guarding, Rigid, Rebound, Tender Back Exam: Normal Inspection, Full Range of Motion Extremities: Normal Inspection, Normal Range of Motion Skin: Warm, Dry, Intact - Patient Data Lab Results Last 24 hrs: Laboratory Results - last 24 hr 08/14/20 08/14/20 08/14/20 Range/Units 15:51 15:51 16:01 WBC 9.02 (4.0-11.0) K/uL RBC 5.01 (4.30-5.90) M/uL Hgb 15.2 (12.0-16.0) g/dL Hct 47.6 H (36.0-46.0) % MCV 95.0 (80.0-98.0) fL MCH 30.3 (27.0-32.0) pg MCHC 31.9 (31.0-37.0) g/dL RDW Std Deviation 47.0 (28.0-62.0) fl RDW Coeff of Akash 14 (11.0-15.0) % Plt Count 492 H (150-400) K/uL MPV 9.50 (7.40-12.00) fL Neut % (Auto) 73.5 (48.0-80.0) % Lymph % (Auto) 14.7 L (16.0-40.0) % [place] % (Auto) 10.5 (0.0-15.0) % Eos % (Auto) 1.1 (0.0-7.0) % Baso % (Auto) 0.2 (0.0-1.5) % Neut # (Auto) 6.6 H (1.4-5.7) K/uL Lymph # (Auto) 1.3 (0.6-2.4) K/uL Meigs # (Auto) 1.0 H (0.0-0.8) K/uL Eos # (Auto) 0.1 (0.0-0.7) K/uL Baso # (Auto) 0.0 (0.0-0.1) K/uL Nucleated RBC % 0.0 /100WBC Nucleated RBCs # 0 K/uL Lactate (0.20-2.00) mmol/L Sodium (136-145) mmol/L Potassium (3.5-5.1) mmol/L Chloride (98-107) mmol/L Carbon Dioxide (21.0-32.0) mmol/L BUN (7.0-18.0) mg/dL Creatinine (0.6-1.0) mg/dL Est Cr Clr Drug Dosing mL/min Estimated GFR (MDRD) ml/min Glucose (74-106) mg/dL Calcium (8.5-10.1) mg/dL Total Bilirubin (0.2-1.0) mg/dL AST (15-37) IU/L ALT (14-63) IU/L Alkaline Phosphatase (46-116) U/L Total Protein (6.4-8.2) g/dL Albumin (3.4-5.0) g/dL Globulin (2.6-4.0) g/dL Albumin/Globulin Ratio (0.9-1.6) Lipase (73-393) U/L Urine Color YELLOW Urine Appearance CLEAR Urine pH 6.0 (5.0-8.0) Ur Specific [place] 1.015 (1.001-1.035) Urine Protein NEGATIVE (NEGATIVE) mg/dL Urine Glucose (UA) NEGATIVE (NEGATIVE) mg/dL Urine Ketones NEGATIVE (NEGATIVE) mg/dL Urine Occult Blood TRACE-INTACT H (NEGATIVE) Urine Nitrite NEGATIVE (NEGATIVE) Urine Bilirubin NEGATIVE (NEGATIVE) Urine Urobilinogen 0.2 (<2.0) EU/dL Ur Leukocyte Esterase NEGATIVE (NEGATIVE) Urine RBC 0-1 (0-2/HPF) Urine WBC 0-1 (0-5/HPF) Ur Epithelial Cells RARE (NONE-FEW) Urine Bacteria RARE (NEGATIVE) Urine HCG, Qual NEGATIVE (NEGATIVE) 08/14/20 08/14/20 Range/Units 16:01 19:46 WBC (4.0-11.0) K/uL RBC (4.30-5.90) M/uL Hgb (12.0-16.0) g/dL Hct (36.0-46.0) % MCV (80.0-98.0) fL MCH (27.0-32.0) pg MCHC (31.0-37.0) g/dL RDW Std Deviation (28.0-62.0) fl RDW Coeff of Akash (11.0-15.0) % Plt Count (150-400) K/uL MPV (7.40-12.00) fL Neut % (Auto) (48.0-80.0) % Lymph % (Auto) (16.0-40.0) % [place] % (Auto) (0.0-15.0) % Eos % (Auto) (0.0-7.0) % Baso % (Auto) (0.0-1.5) % Neut # (Auto) (1.4-5.7) K/uL Lymph # (Auto) (0.6-2.4) K/uL [place] # (Auto) (0.0-0.8) K/uL Eos # (Auto) (0.0-0.7) K/uL Baso # (Auto) (0.0-0.1) K/uL Nucleated RBC % /100WBC Nucleated RBCs # K/uL Lactate 0.8 (0.20-2.00) mmol/L Sodium 135 L (136-145) mmol/L Potassium 3.6 (3.5-5.1) mmol/L Chloride 96 L (98-107) mmol/L Carbon Dioxide 28.7 (21.0-32.0) mmol/L BUN 14 (7.0-18.0) mg/dL Creatinine 1.0 (0.6-1.0) mg/dL Est Cr Clr Drug Dosing 55.06 mL/min Estimated GFR (MDRD) 58.5 ml/min Glucose 96 (74-106) mg/dL Calcium 9.8 (8.5-10.1) mg/dL Total Bilirubin 0.4 (0.2-1.0) mg/dL AST 25 (15-37) IU/L ALT 41 (14-63) IU/L Alkaline Phosphatase 152 H (46-116) U/L Total Protein 9.1 H (6.4-8.2) g/dL Albumin 4.0 (3.4-5.0) g/dL Globulin 5.1 H (2.6-4.0) g/dL Albumin/Globulin Ratio 0.8 L (0.9-1.6) Lipase 46 L (73-393) U/L Urine Color Urine Appearance Urine pH (5.0-8.0) Ur Specific [place] (1.001-1.035) Urine Protein (NEGATIVE) mg/dL Urine Glucose (UA) (NEGATIVE) mg/dL Urine Ketones (NEGATIVE) mg/dL Urine Occult Blood (NEGATIVE) Urine Nitrite (NEGATIVE) Urine Bilirubin (NEGATIVE) Urine Urobilinogen (<2.0) EU/dL Ur Leukocyte Esterase (NEGATIVE) Urine RBC (0-2/HPF) Urine WBC (0-5/HPF) Ur Epithelial Cells (NONE-FEW) Urine Bacteria (NEGATIVE) Urine HCG, Qual (NEGATIVE) Result Diagrams: 08/14/20 16:01 08/14/20 16:01 Sepsis Event Note - Evaluation Sepsis Screening Result: No Definite Risk - Focused Exam Vital Signs: Vital Signs Temp Pulse Resp BP Pulse Ox 08/14/20 19:26 35.9 C L 69 18 110/55 L 92 L 08/14/20 17:57 67 18 118/73 97 08/14/20 16:39 66 16 125/78 97 08/14/20 15:39 36.1 C 70 16 132/97 H 97 - Problem List (1) Acute diverticulitis SNOMED Code(s): 335815432 ICD Code: K57.92 - DVTRCLI OF INTEST, PART UNSP, W/O PERF OR ABSCESS W/O BLEED Status: Acute Current Visit: Yes Problem List Initiated/Reviewed/Updated: Yes Orders Last 24hrs: Active Orders 24 hr Category Date Time Status Patient Status [ADT] Routine ADT 08/14/20 19:29 Active Antiembolic Devices [RC] .Routine Care 08/14/20 19:34 Active Intake and Output [RC] Q4HR Care 08/14/20 19:29 Active May Shower [RC] ASDIRECTED Care 08/14/20 19:29 Active Notify Provider Intake and Out [RC] PRN Care 08/14/20 19:30 Active Notify Provider Vital Signs [RC] PRN Care 08/14/20 19:30 Active Oxygen Therapy [RC] PRN Care 08/14/20 19:29 Active RT Aerosol Therapy [RC] ASDIRECTED Care 08/14/20 19:41 Active RT Incentive Spirometry [RC] Q1HWA Care 08/14/20 19:29 Active Up ad Letha [RC] ASDIRECTED Care 08/14/20 19:29 Active VTE/DVT Education [RC] PER UNIT ROUTINE Care 08/14/20 19:34 Active Vital Signs [RC] PER UNIT ROUTINE Care 08/14/20 19:29 Active Nothing Per Oral Diet [DIET] Diet 08/14/20 Dinner Active CAMPYLOBACTER CULT [MREF] Stat Lab 08/14/20 15:43 Ordered CBC WITH AUTO DIFF [HEME] AM Lab 08/15/20 05:11 Ordered CMP [COMPREHENSIVE METABOLIC PN,CMP] [CHEM] AM Lab 08/15/20 05:11 Ordered CORONAVIRUS COVID-19 DUNIA [MOLEC] Stat Lab 08/14/20 19:25 Received OVA & PARASITES BY IMMUNOASSAY [MREF] Stat Lab 08/14/20 15:43 Ordered STOOL CULTURE/SHIGA TOXIN [MREF] Stat Lab 08/14/20 15:43 Ordered Albuterol/Ipratropium [DuoNeb 3.0-0.5 MG/3 ML] Med 08/14/20 19:40 Active 3 ml NEB Q4HRRT PRN Ciprofloxacin in D5W [Cipro in D5W 400 MG/200 ML] 400 Med 08/14/20 19:00 Active mg Premix Bag 1 bag IV Q12H Ciprofloxacin in D5W [Cipro in D5W 400 MG/200 ML] 400 Med 08/15/20 08:00 Active mg Premix Bag 1 bag IV Q12H Heparin Sodium Med 08/14/20 19:30 Active 5,000 units SUBCUT Q8H Lactated Ringers [Ringers, Lactated] 1,000 ml Med 08/14/20 19:30 Active IV ASDIRECTED Morphine Med 08/14/20 19:29 Active 2 mg IVPUSH Q1H PRN Ondansetron [Zofran] Med 08/14/20 19:29 Active 4 mg IVPUSH Q6H PRN Promethazine [Phenergan] Med 08/14/20 19:29 Active 25 mg IM Q6H PRN Sodium Chloride 0.9% [Normal Saline] Med 08/14/20 19:29 Active 10 ml IV ASDIRECTED PRN Sodium Chloride 0.9% [Saline Flush] Med 08/14/20 19:29 Active 10 ml FLUSH ASDIRECTED PRN Sodium Chloride 0.9% [Saline Flush] Med 08/14/20 19:29 Active 2.5 ml FLUSH ASDIRECTED PRN buPROPion [Wellbutrin XL] Med 08/15/20 19:46 Ordered 300 mg PO DAILY metroNIDAZOLE/Normal Saline [Flagyl 500 MG in NS 100 ML Med 08/14/20 19:43 Active ] 500 mg Premix Bag 1 bag IV QID DVT/VTE Prophylaxis Reflex [OM.PC] Routine Oth 08/14/20 19:29 Ordered Peripheral IV Insertion Adult [OM.PC] Urgent Oth 08/14/20 19:29 Ordered Resuscitation Status Routine Resus Stat 08/14/20 19:29 Ordered Medication Orders Albuterol/Ipratropium (Duoneb 3.0-0.5 Mg/3 Ml) 3 ml NEB Q4HRRT PRN PRN Reason: Shortness of Breath Bupropion HCl (Wellbutrin Xl) 300 mg PO DAILY [facility] Heparin Sodium (Porcine) (Heparin Sodium) 5,000 units SUBCUT Q8H JENNIFER Ciprofloxacin/Dextrose 400 mg/ (Premix) 200 mls @ 200 mls/hr IV Q12H [facility] Last Admin: 08/14/20 19:12 Dose: 200 mls/hr Documented by: [id number] Lactated Ringer's (Ringers, Lactated) 1,000 mls @ 125 mls/hr IV ASDIRECTED [facility] Ciprofloxacin/Dextrose 400 mg/ (Premix) 200 mls @ 200 mls/hr IV Q12H JENNIFER Metronidazole 500 mg/ Premix 100 mls @ 100 mls/hr IV QID ONE Stop: 08/14/20 19:56 Morphine Sulfate (Morphine) 2 mg IVPUSH Q1H PRN PRN Reason: Pain (severe 7-10) Ondansetron HCl (Zofran) 4 mg IVPUSH Q6H PRN PRN Reason: Nausea/Vomiting Promethazine HCl (Phenergan) 25 mg IM Q6H PRN PRN Reason: Nausea Sodium Chloride (Saline Flush) 10 ml FLUSH ASDIRECTED PRN PRN Reason: Keep Vein Open Sodium Chloride (Saline Flush) 2.5 ml FLUSH ASDIRECTED PRN PRN Reason: Keep Vein Open Sodium Chloride (Normal Saline) 10 ml IV ASDIRECTED PRN PRN Reason: IV Use Assessment/Plan Comment:: The patient and I reviewed her CT results and I showed her the images. I agree there are diverticula in the area of concern and the area appears inflamed and thickened. I am surprised that she does not have an elevated WBC or left shift associated with this however. She is also non-tender on exam. I explained the possible other etiologies including inflammatory bowel disease or a malignancy. I will admit her to the floor. She will be NPO other than medications. I will resuscitate her with IVF and will give IV Cipro and Flagyl. If after several days her symptoms do not improve, I will repeat her CT scan and we discussed the possibility of a colonoscopy. I warned the patient that should this obstruct she may need emergency surgery, however she is still having bowel function and her abdominal exam is benign. Pain: IV morphine 2mg q 1hr. Tylenol prn fever. CV: Patient takes bystolic and HCTZ. Will hold for tonight. May restart tomorrow. Pulm: History of asthma and long time smoker. Ordered prn duonebs as needed for SOB. GI: NPO other than oral medications (none tonight other than tylenol). IV Protonix for GI px. Renal: LR @ 125ml/hr for tonight. Recheck CMP, electrolytes in am. Alk phos elevated. Could be due to stress secondary to disease process. Will monitor. Will check magnesium and phos in am. ID: IV cipro and flagyl. Recheck CBC in am Heme: History of DVTs. Will order subq heparin prophylaxis as well as SCDs.
[2020-08-14] MEDS: Heparin Sodium 5,000 Units/ML Vial SUBCUT SCH (21:04)
[2020-08-14] MEDS: Lactated Ringers 1,000 ML IV SCH (21:26)
[2020-08-14] MEDS: Pantoprazole 40 MG in Sodium Chloride 0.9% 10 ML IV SCH (22:55)
[2020-08-15] MEDS: metroNIDAZOLE/Normal Saline 500 MG in Premix Bag 1 BAG IV SCH ×5 (00:36→23:59)
[2020-08-15] MEDS: Morphine 4 MG/ML Syringe IVPUSH PRN ×4 (02:32→09:14)
[2020-08-15] MEDS: Heparin Sodium 5,000 Units/ML Vial SUBCUT SCH ×3 (04:04→18:45)
[2020-08-15] MEDS: Lactated Ringers 1,000 ML IV SCH (05:25)
[2020-08-15 06:19] LABS: CARBON DIOXIDE,CO2 30.1 mmol/L (21.0-32.0); POTASSIUM,K 3.9 mmol/L (3.5-5.1)
[2020-08-15] MEDS: Ciprofloxacin in D5W 400 MG in Premix Bag 1 BAG IV SCH ×4 (08:22→20:41)
[2020-08-15] MEDS: Pantoprazole 40 MG in Sodium Chloride 0.9% 10 ML IV SCH (08:22)
--- NOTE | 2020-08-15 08:51 | PCM.SURGPN ---
- General Info Date of Service: 08/15/20 Functional Status: Reports: Other (Patient no longer having pain across abdomen. Pain centered in left upper quadrant. Only needed one dose of pain medication overnight. No nausea. No vomiting. No fevers or chills. Had one loose bowel movement. O2 sats decrease with sleeping consistent with history of sleep apnea. ) - Review of Systems General: Denies: Fever, Weakness, Fatigue, Malaise, Chills HEENT: Reports: No Symptoms Pulmonary: Reports: No Symptoms Cardiovascular: Reports: No Symptoms Gastrointestinal: Reports: Abdominal Pain (LUQ), Diarrhea, Flatus. Denies: Constipation, Nausea, Vomiting Genitourinary: Reports: No Symptoms Musculoskeletal: Reports: Back Pain (LUQ) Skin: Reports: No Symptoms Neurological: Reports: No Symptoms - Patient Data Vitals - Most Recent: Last Vital Signs Temp 36.8 C 08/15/20 07:30 Pulse 67 08/15/20 07:30 Resp 16 08/15/20 07:30 BP 104/55 L 08/15/20 07:30 Pulse Ox 97 08/15/20 07:30 Weight - Most Recent: 72.529 kg I&O - Last 24 Hours: Intake & Output 08/14/20 08/15/20 08/15/20 22:59 06:59 14:59 Intake Total 110 Output Total 800 Balance -690 Lab Results Last 24 Hrs: Laboratory Results - last 24 hr 08/14/20 08/14/20 08/14/20 Range/Units 15:51 15:51 16:01 WBC 9.02 (4.0-11.0) K/uL RBC 5.01 (4.30-5.90) M/uL Hgb 15.2 (12.0-16.0) g/dL Hct 47.6 H (36.0-46.0) % MCV 95.0 (80.0-98.0) fL MCH 30.3 (27.0-32.0) pg MCHC 31.9 (31.0-37.0) g/dL RDW Std Deviation 47.0 (28.0-62.0) fl RDW Coeff of Akash 14 (11.0-15.0) % Plt Count 492 H (150-400) K/uL MPV 9.50 (7.40-12.00) fL Neut % (Auto) 73.5 (48.0-80.0) % Lymph % (Auto) 14.7 L (16.0-40.0) % [place]aine % (Auto) 10.5 (0.0-15.0) % Eos % (Auto) 1.1 (0.0-7.0) % Baso % (Auto) 0.2 (0.0-1.5) % Neut # (Auto) 6.6 H (1.4-5.7) K/uL Lymph # (Auto) 1.3 (0.6-2.4) K/uL Blaine # (Auto) 1.0 H (0.0-0.8) K/uL Eos # (Auto) 0.1 (0.0-0.7) K/uL Baso # (Auto) 0.0 (0.0-0.1) K/uL Nucleated RBC % 0.0 /100WBC Nucleated RBCs # 0 K/uL Lactate (0.20-2.00) mmol/L Sodium (136-145) mmol/L Potassium (3.5-5.1) mmol/L Chloride (98-107) mmol/L Carbon Dioxide (21.0-32.0) mmol/L BUN (7.0-18.0) mg/dL Creatinine (0.6-1.0) mg/dL Est Cr Clr Drug Dosing mL/min Estimated GFR (MDRD) ml/min Glucose (74-106) mg/dL Calcium (8.5-10.1) mg/dL Phosphorus (2.6-4.7) mg/dL Magnesium (1.8-2.4) mg/dL Total Bilirubin (0.2-1.0) mg/dL AST (15-37) IU/L ALT (14-63) IU/L Alkaline Phosphatase (46-116) U/L Total Protein (6.4-8.2) g/dL Albumin (3.4-5.0) g/dL Globulin (2.6-4.0) g/dL Albumin/Globulin Ratio (0.9-1.6) Lipase (73-393) U/L Urine Color YELLOW Urine Appearance CLEAR Urine pH 6.0 (5.0-8.0) Ur Specific [place] 1.015 (1.001-1.035) Urine Protein NEGATIVE (NEGATIVE) mg/dL Urine Glucose (UA) NEGATIVE (NEGATIVE) mg/dL Urine Ketones NEGATIVE (NEGATIVE) mg/dL Urine Occult Blood TRACE-INTACT H (NEGATIVE) Urine Nitrite NEGATIVE (NEGATIVE) Urine Bilirubin NEGATIVE (NEGATIVE) Urine Urobilinogen 0.2 (<2.0) EU/dL Ur Leukocyte Esterase NEGATIVE (NEGATIVE) Urine RBC 0-1 (0-2/HPF) Urine WBC 0-1 (0-5/HPF) Ur Epithelial Cells RARE (NONE-FEW) Urine Bacteria RARE (NEGATIVE) Urine HCG, Qual NEGATIVE (NEGATIVE) SARS-CoV-2 RNA (DUNIA) (NEGATIVE) 08/14/20 08/14/20 08/14/20 Range/Units 16:01 19:25 19:46 WBC (4.0-11.0) K/uL RBC (4.30-5.90) M/uL Hgb (12.0-16.0) g/dL Hct (36.0-46.0) % MCV (80.0-98.0) fL MCH (27.0-32.0) pg MCHC (31.0-37.0) g/dL RDW Std Deviation (28.0-62.0) fl RDW Coeff of Akash (11.0-15.0) % Plt Count (150-400) K/uL MPV (7.40-12.00) fL Neut % (Auto) (48.0-80.0) % Lymph % (Auto) (16.0-40.0) % [place] % (Auto) (0.0-15.0) % Eos % (Auto) (0.0-7.0) % Baso % (Auto) (0.0-1.5) % Neut # (Auto) (1.4-5.7) K/uL Lymph # (Auto) (0.6-2.4) K/uL [place] # (Auto) (0.0-0.8) K/uL Eos # (Auto) (0.0-0.7) K/uL Baso # (Auto) (0.0-0.1) K/uL Nucleated RBC % /100WBC Nucleated RBCs # K/uL Lactate 0.8 (0.20-2.00) mmol/L Sodium 135 L (136-145) mmol/L Potassium 3.6 (3.5-5.1) mmol/L Chloride 96 L (98-107) mmol/L Carbon Dioxide 28.7 (21.0-32.0) mmol/L BUN 14 (7.0-18.0) mg/dL Creatinine 1.0 (0.6-1.0) mg/dL Est Cr Clr Drug Dosing 55.06 mL/min Estimated GFR (MDRD) 58.5 ml/min Glucose 96 (74-106) mg/dL Calcium 9.8 (8.5-10.1) mg/dL Phosphorus (2.6-4.7) mg/dL Magnesium (1.8-2.4) mg/dL Total Bilirubin 0.4 (0.2-1.0) mg/dL AST 25 (15-37) IU/L ALT 41 (14-63) IU/L Alkaline Phosphatase 152 H (46-116) U/L Total Protein 9.1 H (6.4-8.2) g/dL Albumin 4.0 (3.4-5.0) g/dL Globulin 5.1 H (2.6-4.0) g/dL Albumin/Globulin Ratio 0.8 L (0.9-1.6) Lipase 46 L (73-393) U/L Urine Color Urine Appearance Urine pH (5.0-8.0) Ur Specific [place] (1.001-1.035) Urine Protein (NEGATIVE) mg/dL Urine Glucose (UA) (NEGATIVE) mg/dL Urine Ketones (NEGATIVE) mg/dL Urine Occult Blood (NEGATIVE) Urine Nitrite (NEGATIVE) Urine Bilirubin (NEGATIVE) Urine Urobilinogen (<2.0) EU/dL Ur Leukocyte Esterase (NEGATIVE) Urine RBC (0-2/HPF) Urine WBC (0-5/HPF) Ur Epithelial Cells (NONE-FEW) Urine Bacteria (NEGATIVE) Urine HCG, Qual (NEGATIVE) SARS-CoV-2 RNA (DUNIA) NEGATIVE (NEGATIVE) 08/15/20 08/15/20 Range/Units 05:05 05:05 WBC 7.90 (4.0-11.0) K/uL RBC 4.22 L (4.30-5.90) M/uL Hgb 12.9 (12.0-16.0) g/dL Hct 40.9 (36.0-46.0) % MCV 96.9 (80.0-98.0) fL MCH 30.6 (27.0-32.0) pg MCHC 31.5 (31.0-37.0) g/dL RDW Std Deviation 48.2 (28.0-62.0) fl RDW Coeff of Akash 14 (11.0-15.0) % Plt Count 442 H (150-400) K/uL MPV 9.50 (7.40-12.00) fL Neut % (Auto) 68.7 (48.0-80.0) % Lymph % (Auto) 15.7 L (16.0-40.0) % [place] % (Auto) 14.2 (0.0-15.0) % Eos % (Auto) 1.0 (0.0-7.0) % Baso % (Auto) 0.4 (0.0-1.5) % Neut # (Auto) 5.4 (1.4-5.7) K/uL Lymph # (Auto) 1.2 (0.6-2.4) K/uL [place] # (Auto) 1.1 H (0.0-0.8) K/uL Eos # (Auto) 0.1 (0.0-0.7) K/uL Baso # (Auto) 0.0 (0.0-0.1) K/uL Nucleated RBC % 0.0 /100WBC Nucleated RBCs # 0 K/uL Lactate (0.20-2.00) mmol/L Sodium 140 (136-145) mmol/L Potassium 3.9 (3.5-5.1) mmol/L Chloride 103 (98-107) mmol/L Carbon Dioxide 30.1 (21.0-32.0) mmol/L BUN 12 (7.0-18.0) mg/dL Creatinine 1.0 (0.6-1.0) mg/dL Est Cr Clr Drug Dosing 55.06 mL/min Estimated GFR (MDRD) 58.5 ml/min Glucose 86 (74-106) mg/dL Calcium 9.2 (8.5-10.1) mg/dL Phosphorus 3.7 (2.6-4.7) mg/dL Magnesium 1.9 (1.8-2.4) mg/dL Total Bilirubin 0.3 (0.2-1.0) mg/dL AST 18 (15-37) IU/L ALT 30 (14-63) IU/L Alkaline Phosphatase 116 (46-116) U/L Total Protein 7.4 (6.4-8.2) g/dL Albumin 3.3 L (3.4-5.0) g/dL Globulin 4.1 H (2.6-4.0) g/dL Albumin/Globulin Ratio 0.8 L (0.9-1.6) Lipase (73-393) U/L Urine Color Urine Appearance Urine pH (5.0-8.0) Ur Specific [place] (1.001-1.035) Urine Protein (NEGATIVE) mg/dL Urine Glucose (UA) (NEGATIVE) mg/dL Urine Ketones (NEGATIVE) mg/dL Urine Occult Blood (NEGATIVE) Urine Nitrite (NEGATIVE) Urine Bilirubin (NEGATIVE) Urine Urobilinogen (<2.0) EU/dL Ur Leukocyte Esterase (NEGATIVE) Urine RBC (0-2/HPF) Urine WBC (0-5/HPF) Ur Epithelial Cells (NONE-FEW) Urine Bacteria (NEGATIVE) Urine HCG, Qual (NEGATIVE) SARS-CoV-2 RNA (DUNIA) (NEGATIVE) Robin Results Last 24 Hrs: Microbiology 08/14/20 21:30 Stool Occult Blood (ROBIN) - Final Stool / Feces Med Orders - Current: Current Medications Albuterol/Ipratropium (Duoneb 3.0-0.5 Mg/3 Ml) 3 ml NEB Q4HRRT PRN PRN Reason: Shortness of Breath Bupropion HCl (Wellbutrin Xl) 300 mg PO DAILY [facility] Heparin Sodium (Porcine) (Heparin Sodium) 5,000 units SUBCUT Q8H [facility] Last Admin: 08/15/20 04:04 Dose: 5,000 units Documented by: Hydrochlorothiazide (Hydrochlorothiazide) 25 mg PO DAILY [facility] Lactated Ringer's (Ringers, Lactated) 1,000 mls @ 125 mls/hr IV ASDIRECTED [facility] Last Admin: 08/15/20 05:25 Dose: 125 mls/hr Documented by: Ciprofloxacin/Dextrose 400 mg/ (Premix) 200 mls @ 200 mls/hr IV Q12H [facility] Last Admin: 08/15/20 08:22 Dose: 200 mls/hr Documented by: Metronidazole 500 mg/ Premix 100 mls @ 100 mls/hr IV QID [facility] Last Admin: 08/15/20 05:25 Dose: 100 mls/hr Documented by: Pantoprazole Sodium 40 mg/ (Sodium Chloride) 10 mls @ 300 mls/hr IV DAILY [facility] Last Admin: 08/15/20 08:22 Dose: 300 mls/hr Documented by: Morphine Sulfate (Morphine) 2 mg IVPUSH Q1H PRN PRN Reason: Pain (severe 7-10) Last Admin: 08/15/20 07:39 Dose: 2 mg Documented by: Ondansetron HCl (Zofran) 4 mg IVPUSH Q6H PRN PRN Reason: Nausea/Vomiting Oxycodone/Acetaminophen (Percocet 325-5 Mg) 2 tab PO Q4H PRN PRN Reason: Pain (moderate 4-6) Nebivolol 15 Mg 1 each PO DAILY [facility] Promethazine HCl (Phenergan) 25 mg IM Q6H PRN PRN Reason: Nausea Sodium Chloride (Saline Flush) 10 ml FLUSH ASDIRECTED PRN PRN Reason: Keep Vein Open Sodium Chloride (Saline Flush) 2.5 ml FLUSH ASDIRECTED PRN PRN Reason: Keep Vein Open Sodium Chloride (Normal Saline) 10 ml IV ASDIRECTED PRN PRN Reason: IV Use Discontinued Medications Bupropion HCl (Wellbutrin Xl) 300 mg PO DAILY [facility] Bupropion HCl (Wellbutrin Xl) 300 mg PO DAILY [facility] Hydromorphone HCl (Dilaudid) 1 mg IVPUSH ONETIME ONE Stop: 08/14/20 18:39 Last Admin: 08/14/20 19:12 Dose: 1 mg Documented by: Sodium Chloride (Normal Saline) 1,000 mls @ 999 mls/hr IV STAT ONE Stop: 08/14/20 16:43 Last Admin: 08/14/20 16:00 Dose: 999 mls/hr Documented by: Ciprofloxacin/Dextrose 400 mg/ (Premix) 200 mls @ 200 mls/hr IV Q12H [facility] Last Admin: 08/14/20 19:12 Dose: 200 mls/hr Documented by: Metronidazole 500 mg/ Premix 100 mls @ 100 mls/hr IV ONETIME ONE Stop: 08/14/20 19:56 Last Admin: 08/14/20 19:13 Dose: 100 mls/hr Documented by: Iopamidol (Isovue Multipack-370 (76%)) 100 ml IVPUSH ONETIME ONE Stop: 08/14/20 17:05 Last Admin: 08/14/20 17:04 Dose: 100 ml Documented by: Metoprolol Tartrate (Lopressor) 5 mg IVPUSH Q4H PRN PRN Reason: Hypertension Morphine Sulfate (Morphine) 4 mg IVPUSH ONETIME ONE Stop: 08/14/20 15:46 Last Admin: 08/14/20 16:01 Dose: 4 mg Documented by: Ondansetron HCl (Zofran) 4 mg IVPUSH ONETIME ONE Stop: 08/14/20 15:46 Last Admin: 08/14/20 16:00 Dose: 4 mg Documented by: - Exam General: Alert, Oriented HEENT: Pupils Equal, Pupils Reactive Lungs: Normal Respiratory Effort Cardiovascular: Regular Rate GI/Abdominal Exam: Soft, Non-Tender, No Distention, No Mass Skin: Warm, Dry, Intact Sepsis Event Note - Evaluation Sepsis Screening Result: No Definite Risk - Focused Exam Vital Signs: Vital Signs Temp Pulse Resp BP Pulse Ox 08/15/20 07:30 36.8 C 67 16 104/55 L 97 08/15/20 04:06 36.9 C 71 16 120/55 L 97 08/14/20 23:25 36.9 C 71 18 111/70 98 - Problem List & Annotations (1) Acute diverticulitis SNOMED Code(s): 735400321 Code(s): K57.92 - DVTRCLI OF INTEST, PART UNSP, W/O PERF OR ABSCESS W/O BLEED Status: Acute Current Visit: Yes - Problem List Review Problem List Initiated/Reviewed/Updated: Yes - My Orders Last 24 Hours: Active Orders 24 hr Category Date Time Status Patient Status [ADT] Routine ADT 08/15/20 08:35 Ordered Antiembolic Devices [RC] .Routine Care 08/14/20 19:34 Active Antiembolic Devices [RC] PER UNIT ROUTINE Care 08/14/20 20:12 Active Communication Order [RC] ROUTINE Care 08/14/20 20:13 Active Intake and Output [RC] Q4H Care 08/14/20 19:29 Active May Shower [RC] ASDIRECTED Care 08/14/20 19:29 Active Notify Provider Intake and Out [RC] PRN Care 08/14/20 19:30 Active Notify Provider Vital Signs [RC] PRN Care 08/14/20 19:30 Active Oxygen Therapy [RC] PRN Care 08/14/20 19:29 Active RT Aerosol Therapy [RC] ASDIRECTED Care 08/14/20 19:41 Active RT BiPAP/CPAP [RC] ASDIRECTED Care 08/14/20 23:53 Active RT Incentive Spirometry [RC] Q1HWA Care 08/14/20 19:29 Active Up ad Letha [RC] ASDIRECTED Care 08/14/20 19:29 Active VTE/DVT Education [RC] PER UNIT ROUTINE Care 08/14/20 19:34 Active Vital Signs [RC] Q4H Care 08/14/20 19:29 Active Nothing Per Oral Diet [DIET] Diet 08/14/20 Dinner Active CBC W/O DIFF,HEMOGRAM [HEME] AM Lab 08/16/20 05:11 Ordered CBC W/O DIFF,HEMOGRAM [HEME] AM Lab 08/17/20 05:11 Ordered CBC W/O DIFF,HEMOGRAM [HEME] AM Lab 08/18/20 05:11 Ordered CMP [COMPREHENSIVE METABOLIC PN,CMP] [CHEM] AM Lab 08/16/20 05:11 Ordered CMP [COMPREHENSIVE METABOLIC PN,CMP] [CHEM] AM Lab 08/17/20 05:11 Ordered CMP [COMPREHENSIVE METABOLIC PN,CMP] [CHEM] AM Lab 08/18/20 05:11 Ordered CMP [COMPREHENSIVE METABOLIC PN,CMP] [CHEM] AM Lab 08/19/20 05:11 Ordered MAGNESIUM [CHEM] AM Lab 08/16/20 05:11 Ordered MAGNESIUM [CHEM] AM Lab 08/17/20 05:11 Ordered MAGNESIUM [CHEM] AM Lab 08/18/20 05:11 Ordered MAGNESIUM [CHEM] AM Lab 08/19/20 05:11 Ordered OVA & PARASITES BY IMMUNOASSAY [MREF] Stat Lab 08/14/20 21:30 Received PHOSPHORUS [CHEM] AM Lab 08/16/20 05:11 Ordered PHOSPHORUS [CHEM] AM Lab 08/17/20 05:11 Ordered PHOSPHORUS [CHEM] AM Lab 08/18/20 05:11 Ordered PHOSPHORUS [CHEM] AM Lab 08/19/20 05:11 Ordered STOOL CULTURE/SHIGA TOXIN [MREF] Stat Lab 08/14/20 21:30 Received Acetaminophen/oxyCODONE [Percocet 325-5 MG] Med 08/15/20 08:33 Ordered 2 tab PO Q4H PRN Albuterol/Ipratropium [DuoNeb 3.0-0.5 MG/3 ML] Med 08/14/20 19:40 Active 3 ml NEB Q4HRRT PRN Ciprofloxacin in D5W [Cipro in D5W 400 MG/200 ML] 400 Med 08/15/20 08:00 Active mg Premix Bag 1 bag IV Q12H Heparin Sodium Med 08/14/20 19:30 Active 5,000 units SUBCUT Q8H Lactated Ringers [Ringers, Lactated] 1,000 ml Med 08/14/20 19:30 Active IV ASDIRECTED Morphine Med 08/14/20 19:29 Active 2 mg IVPUSH Q1H PRN Nebivolol Med 08/15/20 09:00 Ordered 15 mg PO DAILY Ondansetron [Zofran] Med 08/14/20 19:29 Active 4 mg IVPUSH Q6H PRN Pantoprazole [ProTONIX IV] 40 mg Med 08/14/20 22:45 Active Sodium Chloride 0.9% [Normal Saline] 10 ml IV DAILY Promethazine [Phenergan] Med 08/14/20 19:29 Active 25 mg IM Q6H PRN Sodium Chloride 0.9% [Normal Saline] Med 08/14/20 19:29 Active 10 ml IV ASDIRECTED PRN Sodium Chloride 0.9% [Saline Flush] Med 08/14/20 19:29 Active 10 ml FLUSH ASDIRECTED PRN Sodium Chloride 0.9% [Saline Flush] Med 08/14/20 19:29 Active 2.5 ml FLUSH ASDIRECTED PRN buPROPion [Wellbutrin XL] Med 08/15/20 20:00 Ordered 300 mg PO DAILY hydroCHLOROthiazide Med 08/15/20 09:00 Ordered 25 mg PO DAILY metroNIDAZOLE/Normal Saline [Flagyl 500 MG in NS 100 ML Med 08/15/20 01:00 Active ] 500 mg Premix Bag 1 bag IV QID DVT/VTE Prophylaxis Reflex [OM.PC] Routine Oth 08/14/20 19:29 Ordered Peripheral IV Insertion Adult [OM.PC] Urgent Oth 10/16/20 19:29 Ordered Sequential Compression Device [OM.PC] Stat Oth 08/14/20 20:12 Ordered Resuscitation Status Routine Resus Stat 08/14/20 19:29 Ordered Medication Orders Albuterol/Ipratropium (Duoneb 3.0-0.5 Mg/3 Ml) 3 ml NEB Q4HRRT PRN PRN Reason: Shortness of Breath Bupropion HCl (Wellbutrin Xl) 300 mg PO DAILY [facility] Heparin Sodium (Porcine) (Heparin Sodium) 5,000 units SUBCUT Q8H [facility] Last Admin: 08/15/20 04:04 Dose: 5,000 units Documented by: Admin: 08/14/20 21:04 Dose: 5,000 units Documented by: KAUR Hydrochlorothiazide (Hydrochlorothiazide) 25 mg PO DAILY [facility] Lactated Ringer's (Ringers, Lactated) 1,000 mls @ 125 mls/hr IV ASDIRECTED [facility] Last Admin: 08/15/20 05:25 Dose: 125 mls/hr Documented by: Infusion: 08/15/20 05:25 Dose: 125 mls/hr Documented by: Admin: 08/14/20 21:26 Dose: 125 mls/hr Documented by: KAUR Ciprofloxacin/Dextrose 400 mg/ (Premix) 200 mls @ 200 mls/hr IV Q12H [facility] Last Admin: 08/15/20 08:22 Dose: 200 mls/hr Documented by: JESSICA Metronidazole 500 mg/ Premix 100 mls @ 100 mls/hr IV QID [facility] Last Admin: 08/15/20 05:25 Dose: 100 mls/hr Documented by: Infusion: 08/15/20 01:36 Dose: 100 mls/hr Documented by: Admin: 08/15/20 00:36 Dose: 100 mls/hr Documented by: KAUR Pantoprazole Sodium 40 mg/ (Sodium Chloride) 10 mls @ 300 mls/hr IV DAILY [facility] Last Admin: 08/15/20 08:22 Dose: 300 mls/hr Documented by: Infusion: 08/14/20 22:57 Dose: 300 mls/hr Documented by: Admin: 08/14/20 22:55 Dose: 300 mls/hr Documented by: KAUR Morphine Sulfate (Morphine) 2 mg IVPUSH Q1H PRN PRN Reason: Pain (severe 7-10) Last Admin: 08/15/20 07:39 Dose: 2 mg Documented by: Admin: 08/15/20 05:22 Dose: 2 mg Documented by: Admin: 08/15/20 02:32 Dose: 2 mg Documented by: KAUR Ondansetron HCl (Zofran) 4 mg IVPUSH Q6H PRN PRN Reason: Nausea/Vomiting Oxycodone/Acetaminophen (Percocet 325-5 Mg) 2 tab PO Q4H PRN PRN Reason: Pain (moderate 4-6) Nebivolol 15 Mg 1 each PO DAILY [facility] Promethazine HCl (Phenergan) 25 mg IM Q6H PRN PRN Reason: Nausea Sodium Chloride (Saline Flush) 10 ml FLUSH ASDIRECTED PRN PRN Reason: Keep Vein Open Sodium Chloride (Saline Flush) 2.5 ml FLUSH ASDIRECTED PRN PRN Reason: Keep Vein Open Sodium Chloride (Normal Saline) 10 ml IV ASDIRECTED PRN PRN Reason: IV Use - Plan Plan (Free Text/Narrative):: Patient feels better this morning. Pain more centered over area of inflammation. Vitals stable. Passing stools. Will keep npo but allow meds and ice chips today. Will switch IVF to D5NS. Pain: IV morphine 2mg q 1hr prn severe pain. Percocet 325-5mg 2 tab q 4hr prn moderate pain. Tylenol for fever. Pulm: Hx of CHANDAN. Refuses CPAP. Encourage OOB activity and IS use. Cards: Stable. Will restart HCTZ and add metoprolol succinate 50mg daily (Bystolic non-formulary). VSS GI: NPO except ice chips and sips with meds. Switch IVF to D5NS with 20 meq KCl @ 100ml/hr. Renal: UOP adequate. BUN/Cr normal. Electrolytes WNL. Recheck CMP and mag and phos in am. ID: Continue IV cipro and flagyl today. CBC in am. Heme: Hemoglobin dropped likely due to resuscitation. Continue to monitor. Px: IV protonix to oral. Heparin sub q for DVT px.
[2020-08-15] MEDS ORDERED: NEBIVOLOL PO SCH (09:00)
[2020-08-15] MEDS ORDERED: buPROPion 150 MG Tab.ER PO SCH ×2 (09:00→19:46)
[2020-08-15] MEDS ORDERED: Pantoprazole 40 MG Tab.CR PO SCH (09:00)
[2020-08-15] MEDS ORDERED: Non-Formulary Medication 1 Each (Hydrochlorothiazide [Hydrochlorothiazide] 25 MG) PO SCH (09:00)
[2020-08-15] MEDS ORDERED: Morphine 2 MG/ML SYRINGE IVPUSH PRN (09:30)
[2020-08-15] MEDS: Metoprolol Succinate 50 MG Tab.ER PO SCH (09:46)
[2020-08-15] MEDS: Hydrochlorothiazide 25 MG Tab PO SCH (09:46)
[2020-08-15] MEDS: Acetaminophen/oxyCODONE 325-5 MG Tab PO PRN ×3 (10:20→20:48)
[2020-08-15] MEDS: Dextrose 5%-0.9% NaCl with KCl 1,000 ML IV SCH (18:26)
[2020-08-15] MEDS: buPROPion 150 MG Tab.ER PO SCH (20:40)
[2020-08-16] MEDS: Heparin Sodium 5,000 Units/ML Vial SUBCUT SCH ×3 (03:41→19:40)
[2020-08-16] MEDS: Acetaminophen/oxyCODONE 325-5 MG Tab PO PRN ×3 (03:41→19:35)
[2020-08-16] MEDS: metroNIDAZOLE/Normal Saline 500 MG in Premix Bag 1 BAG IV SCH ×3 (06:01→17:53)
[2020-08-16] MEDS: Ondansetron 4 MG/2 ML SDV IVPUSH PRN (06:02)
[2020-08-16 06:33] LABS: BLOOD UREA NITROGEN,BUN 7 mg/dL (7.0-18.0); CARBON DIOXIDE,CO2 28.4 mmol/L (21.0-32.0); CHLORIDE,CL 104 mmol/L (98-107); GLUCOSE RANDOM 98 mg/dL (74-106); POTASSIUM,K 3.4 mmol/L (3.5-5.1); SODIUM,NA 140 mmol/L (136-145)
[2020-08-16] MEDS: Pantoprazole 40 MG Tab.CR PO SCH (07:27)
[2020-08-16] MEDS: Dextrose 5%-0.9% NaCl with KCl 1,000 ML IV SCH (07:28)
[2020-08-16] MEDS: buPROPion 150 MG Tab.ER PO SCH (08:22)
[2020-08-16] MEDS: Ciprofloxacin in D5W 400 MG in Premix Bag 1 BAG IV SCH ×4 (08:22→19:44)
--- NOTE | 2020-08-16 09:34 | PCM.SURGPN ---
- General Info Date of Service: 08/16/20 Functional Status: Reports: Other (Patient had one episode of emesis this am right upon waking up. She denies any nausea prior to this. After that episode, she has felt fine. Minimal pain medication use with one dose of percocet this am. Patient feels it was the pain medications on an empty stomach that caused the nausea. Otherwise no complaints. ) - Review of Systems General: Reports: No Symptoms HEENT: Reports: No Symptoms Pulmonary: Reports: No Symptoms Cardiovascular: Reports: No Symptoms Gastrointestinal: Reports: Abdominal Pain (intermittent LUQ pain), Decreased Appetite, Diarrhea (one episode of diarrhea yesterday ), Flatus (still passing faltus ), Vomiting (one episode this am). Denies: Nausea Genitourinary: Reports: No Symptoms Musculoskeletal: Reports: No Symptoms Skin: Reports: No Symptoms - Patient Data Vitals - Most Recent: Last Vital Signs Temp 36.6 C 08/16/20 07:30 Pulse 57 L 08/16/20 07:30 Resp 16 08/16/20 07:30 BP 107/84 08/16/20 07:30 Pulse Ox 98 08/16/20 07:30 Weight - Most Recent: 72.529 kg I&O - Last 24 Hours: Intake & Output 08/15/20 08/16/20 08/16/20 22:59 06:59 14:59 Intake Total 1270 400 Output Total 800 500 Balance 470 -100 Lab Results Last 24 Hrs: Laboratory Results - last 24 hr 08/16/20 08/16/20 Range/Units 06:00 06:00 WBC 7.21 (4.0-11.0) K/uL RBC 4.14 L (4.30-5.90) M/uL Hgb 12.3 (12.0-16.0) g/dL Hct 40.5 (36.0-46.0) % MCV 97.8 (80.0-98.0) fL MCH 29.7 (27.0-32.0) pg MCHC 30.4 L (31.0-37.0) g/dL RDW Std Deviation 48.9 (28.0-62.0) fl RDW Coeff of Akash 14 (11.0-15.0) % Plt Count 447 H (150-400) K/uL MPV 9.10 (7.40-12.00) fL Nucleated RBC % 0.0 /100WBC Nucleated RBCs # 0 K/uL Sodium 140 (136-145) mmol/L Potassium 3.4 L (3.5-5.1) mmol/L Chloride 104 (98-107) mmol/L Carbon Dioxide 28.4 (21.0-32.0) mmol/L BUN 7 (7.0-18.0) mg/dL Creatinine 0.9 (0.6-1.0) mg/dL Est Cr Clr Drug Dosing 61.17 mL/min Estimated GFR (MDRD) > 60.0 ml/min Glucose 98 (74-106) mg/dL Calcium 8.8 (8.5-10.1) mg/dL Phosphorus 3.3 (2.6-4.7) mg/dL Magnesium 1.8 (1.8-2.4) mg/dL Total Bilirubin 0.3 (0.2-1.0) mg/dL AST 16 (15-37) IU/L ALT 24 (14-63) IU/L Alkaline Phosphatase 112 (46-116) U/L Total Protein 7.3 (6.4-8.2) g/dL Albumin 3.1 L (3.4-5.0) g/dL Globulin 4.2 H (2.6-4.0) g/dL Albumin/Globulin Ratio 0.7 L (0.9-1.6) Med Orders - Current: Current Medications Albuterol/Ipratropium (Duoneb 3.0-0.5 Mg/3 Ml) 3 ml NEB Q4HRRT PRN PRN Reason: Shortness of Breath Bupropion HCl (Wellbutrin Xl) 300 mg PO DAILY [facility] Last Admin: 08/16/20 08:22 Dose: 300 mg Documented by: Heparin Sodium (Porcine) (Heparin Sodium) 5,000 units SUBCUT Q8H [facility] Last Admin: 08/16/20 03:41 Dose: 5,000 units Documented by: Ciprofloxacin/Dextrose 400 mg/ (Premix) 200 mls @ 200 mls/hr IV Q12H [facility] Last Admin: 08/16/20 08:22 Dose: 200 mls/hr Documented by: Metronidazole 500 mg/ Premix 100 mls @ 100 mls/hr IV QID [facility] Last Admin: 08/16/20 06:01 Dose: 100 mls/hr Documented by: Potassium Chloride/Dextrose/Sod Cl (D5 Ns With 20 Meq Kcl) 1,000 mls @ 100 mls/hr IV ASDIRECTED [facility] Last Admin: 08/16/20 07:28 Dose: 100 mls/hr Documented by: Morphine Sulfate (Morphine) 2 mg IVPUSH Q1H PRN PRN Reason: Pain (severe 7-10) Ondansetron HCl (Zofran) 4 mg IVPUSH Q6H PRN PRN Reason: Nausea/Vomiting Last Admin: 08/16/20 06:02 Dose: 4 mg Documented by: Oxycodone/Acetaminophen (Percocet 325-5 Mg) 2 tab PO Q4H PRN PRN Reason: Pain (moderate 4-6) Last Admin: 08/16/20 03:41 Dose: 2 tab Documented by: Pantoprazole Sodium (Protonix) 40 mg PO ACBREAKFAST [facility] Last Admin: 08/16/20 07:27 Dose: 40 mg Documented by: Promethazine HCl (Phenergan) 25 mg IM Q6H PRN PRN Reason: Nausea Sodium Chloride (Saline Flush) 10 ml FLUSH ASDIRECTED PRN PRN Reason: Keep Vein Open Sodium Chloride (Saline Flush) 2.5 ml FLUSH ASDIRECTED PRN PRN Reason: Keep Vein Open Sodium Chloride (Normal Saline) 10 ml IV ASDIRECTED PRN PRN Reason: IV Use Discontinued Medications Bupropion HCl (Wellbutrin Xl) 300 mg PO DAILY [facility] Bupropion HCl (Wellbutrin Xl) 300 mg PO DAILY [facility] Hydrochlorothiazide (Hydrochlorothiazide) 25 mg PO DAILY [facility] Last Admin: 08/15/20 09:46 Dose: Not Given Documented by: Hydromorphone HCl (Dilaudid) 1 mg IVPUSH ONETIME ONE Stop: 08/14/20 18:39 Last Admin: 08/14/20 19:12 Dose: 1 mg Documented by: Sodium Chloride (Normal Saline) 1,000 mls @ 999 mls/hr IV STAT ONE Stop: 08/14/20 16:43 Last Admin: 08/14/20 16:00 Dose: 999 mls/hr Documented by: Ciprofloxacin/Dextrose 400 mg/ (Premix) 200 mls @ 200 mls/hr IV Q12H [facility] Last Admin: 08/14/20 19:12 Dose: 200 mls/hr Documented by: Metronidazole 500 mg/ Premix 100 mls @ 100 mls/hr IV ONETIME ONE Stop: 08/14/20 19:56 Last Admin: 08/14/20 19:13 Dose: 100 mls/hr Documented by: Lactated Ringer's (Ringers, Lactated) 1,000 mls @ 125 mls/hr IV ASDIRECTED [facility] Last Admin: 08/15/20 05:25 Dose: 125 mls/hr Documented by: Pantoprazole Sodium 40 mg/ (Sodium Chloride) 10 mls @ 300 mls/hr IV DAILY [facility] Last Admin: 08/15/20 08:22 Dose: 300 mls/hr Documented by: Iopamidol (Isovue Multipack-370 (76%)) 100 ml IVPUSH ONETIME ONE Stop: 08/14/20 17:05 Last Admin: 08/14/20 17:04 Dose: 100 ml Documented by: Metoprolol Succinate (Toprol Xl) 50 mg PO DAILY [facility] Last Admin: 08/15/20 09:46 Dose: Not Given Documented by: Metoprolol Tartrate (Lopressor) 5 mg IVPUSH Q4H PRN PRN Reason: Hypertension Morphine Sulfate (Morphine) 4 mg IVPUSH ONETIME ONE Stop: 08/14/20 15:46 Last Admin: 08/14/20 16:01 Dose: 4 mg Documented by: Morphine Sulfate (Morphine) 2 mg IVPUSH Q1H PRN PRN Reason: Pain (severe 7-10) Last Admin: 08/15/20 09:14 Dose: 2 mg Documented by: Ondansetron HCl (Zofran) 4 mg IVPUSH ONETIME ONE Stop: 08/14/20 15:46 Last Admin: 08/14/20 16:00 Dose: 4 mg Documented by: Pantoprazole Sodium (Protonix) 40 mg PO ACBREAKFAST [facility] Last Admin: 08/15/20 09:28 Dose: Not Given Documented by: - Exam General: Alert, Oriented, Cooperative HEENT: Pupils Equal, Pupils Reactive Neck: Supple Lungs: Normal Respiratory Effort Cardiovascular: Regular Rate GI/Abdominal Exam: Soft, Non-Tender, No Distention, No Mass, Other (Patients abdomen is flatter and softer today. ) Extremities: Normal Inspection Skin: Warm, Dry, Intact Sepsis Event Note - Evaluation Sepsis Screening Result: No Definite Risk - Focused Exam Vital Signs: Vital Signs Temp Pulse Resp BP Pulse Ox 08/16/20 07:30 36.6 C 57 L 16 107/84 98 08/16/20 03:44 36.0 C L 70 15 120/83 98 08/16/20 00:02 36.2 C 61 14 111/75 97 - Problem List & Annotations (1) Acute diverticulitis SNOMED Code(s): 017974961 Code(s): K57.92 - DVTRCLI OF INTEST, PART UNSP, W/O PERF OR ABSCESS W/O BLEED Status: Acute Current Visit: Yes - Problem List Review Problem List Initiated/Reviewed/Updated: Yes - My Orders Last 24 Hours: Active Orders 24 hr Category Date Time Status Patient Status [ADT] Routine ADT 08/15/20 08:35 Active Communication Order [RC] ROUTINE Care 08/16/20 09:26 Ordered Clear Liquid Diet [DIET] Diet 08/16/20 Lunch Ordered CBC W/O DIFF,HEMOGRAM [HEME] AM Lab 08/17/20 05:11 Ordered CBC W/O DIFF,HEMOGRAM [HEME] AM Lab 08/18/20 05:11 Ordered CMP [COMPREHENSIVE METABOLIC PN,CMP] [CHEM] AM Lab 08/17/20 05:11 Ordered CMP [COMPREHENSIVE METABOLIC PN,CMP] [CHEM] AM Lab 08/18/20 05:11 Ordered CMP [COMPREHENSIVE METABOLIC PN,CMP] [CHEM] AM Lab 08/19/20 05:11 Ordered MAGNESIUM [CHEM] AM Lab 08/17/20 05:11 Ordered MAGNESIUM [CHEM] AM Lab 08/18/20 05:11 Ordered MAGNESIUM [CHEM] AM Lab 08/19/20 05:11 Ordered PHOSPHORUS [CHEM] AM Lab 08/17/20 05:11 Ordered PHOSPHORUS [CHEM] AM Lab 08/18/20 05:11 Ordered PHOSPHORUS [CHEM] AM Lab 08/19/20 05:11 Ordered Acetaminophen/oxyCODONE [Percocet 325-5 MG] Med 08/15/20 08:33 Active 2 tab PO Q4H PRN Dextrose 5%-0.9% NaCl with KCl [D5 NS with 20 mEq KCl] Med 08/15/20 09:00 Active 1,000 ml IV ASDIRECTED Morphine Med 08/15/20 09:30 Active 2 mg IVPUSH Q1H PRN Pantoprazole [ProTONIX] Med 08/16/20 07:30 Active 40 mg PO ACBREAKFAST buPROPion [Wellbutrin XL] Med 08/15/20 20:00 Active 300 mg PO DAILY Medication Orders Albuterol/Ipratropium (Duoneb 3.0-0.5 Mg/3 Ml) 3 ml NEB Q4HRRT PRN PRN Reason: Shortness of Breath Bupropion HCl (Wellbutrin Xl) 300 mg PO DAILY [facility] Last Admin: 08/16/20 08:22 Dose: 300 mg Documented by: Admin: 08/15/20 20:40 Dose: 300 mg Documented by: KAUR Heparin Sodium (Porcine) (Heparin Sodium) 5,000 units SUBCUT Q8H [facility] Last Admin: 08/16/20 03:41 Dose: 5,000 units Documented by: Admin: 08/15/20 18:45 Dose: 5,000 units Documented by: Admin: 08/15/20 11:32 Dose: 5,000 units Documented by: Admin: 08/15/20 04:04 Dose: 5,000 units Documented by: Admin: 08/14/20 21:04 Dose: 5,000 units Documented by: KAUR Ciprofloxacin/Dextrose 400 mg/ (Premix) 200 mls @ 200 mls/hr IV Q12H [facility] Last Admin: 08/16/20 08:22 Dose: 200 mls/hr Documented by: Infusion: 08/15/20 21:41 Dose: 200 mls/hr Documented by: Admin: 08/15/20 20:41 Dose: 200 mls/hr Documented by: Infusion: 08/15/20 09:22 Dose: 200 mls/hr Documented by: Admin: 08/15/20 08:22 Dose: 200 mls/hr Documented by: JESSICA Metronidazole 500 mg/ Premix 100 mls @ 100 mls/hr IV QID [facility] Last Admin: 08/16/20 06:01 Dose: 100 mls/hr Documented by: Infusion: 08/16/20 00:59 Dose: 100 mls/hr Documented by: Admin: 08/15/20 23:59 Dose: 100 mls/hr Documented by: Infusion: 08/15/20 18:20 Dose: 100 mls/hr Documented by: Admin: 08/15/20 17:20 Dose: 100 mls/hr Documented by: Infusion: 08/15/20 12:32 Dose: 100 mls/hr Documented by: Admin: 08/15/20 11:32 Dose: 100 mls/hr Documented by: Infusion: 08/15/20 06:25 Dose: 100 mls/hr Documented by: Admin: 08/15/20 05:25 Dose: 100 mls/hr Documented by: Infusion: 08/15/20 01:36 Dose: 100 mls/hr Documented by: Admin: 08/15/20 00:36 Dose: 100 mls/hr Documented by: KAUR Potassium Chloride/Dextrose/Sod Cl (D5 Ns With 20 Meq Kcl) 1,000 mls @ 100 mls/hr IV ASDIRECTED [facility] Last Admin: 08/16/20 07:28 Dose: 100 mls/hr Documented by: Infusion: 08/16/20 04:26 Dose: 100 mls/hr Documented by: Admin: 08/15/20 18:26 Dose: 100 mls/hr Documented by: JESSICA Morphine Sulfate (Morphine) 2 mg IVPUSH Q1H PRN PRN Reason: Pain (severe 7-10) Ondansetron HCl (Zofran) 4 mg IVPUSH Q6H PRN PRN Reason: Nausea/Vomiting Last Admin: 08/16/20 06:02 Dose: 4 mg Documented by: KAUR Oxycodone/Acetaminophen (Percocet 325-5 Mg) 2 tab PO Q4H PRN PRN Reason: Pain (moderate 4-6) Last Admin: 08/16/20 03:41 Dose: 2 tab Documented by: Admin: 08/15/20 20:48 Dose: 2 tab Documented by: Admin: 08/15/20 16:27 Dose: 2 tab Documented by: Admin: 08/15/20 10:20 Dose: 2 tab Documented by: JESSICA Pantoprazole Sodium (Protonix) 40 mg PO ACBREAKFAST [facility] Last Admin: 08/16/20 07:27 Dose: 40 mg Documented by: KAUR Promethazine HCl (Phenergan) 25 mg IM Q6H PRN PRN Reason: Nausea Sodium Chloride (Saline Flush) 10 ml FLUSH ASDIRECTED PRN PRN Reason: Keep Vein Open Sodium Chloride (Saline Flush) 2.5 ml FLUSH ASDIRECTED PRN PRN Reason: Keep Vein Open Sodium Chloride (Normal Saline) 10 ml IV ASDIRECTED PRN PRN Reason: IV Use - Plan Plan (Free Text/Narrative):: Will advance diet to clears today. If patient starts vomiting, hold diet and will obtain an abdominal xray. If patient tolerates clears and is taking adequate po, can stop IVF. Labs are unchanged today. Will continue IV antibiotics for now. If no changes over the next day, may repeat abdominal CT Monday. If this appears improved, will continue to treat patient for acute diverticulitis. If unchanged or worsened, may discuss undergoing a diagnostic colonoscopy to determine if this is a mass.
[2020-08-16] MEDS: Metoprolol Succinate 50 MG Tab.ER PO SCH (09:47)
[2020-08-16] MEDS: Hydrochlorothiazide 25 MG Tab PO SCH (09:47)
[2020-08-17] MEDS: metroNIDAZOLE/Normal Saline 500 MG in Premix Bag 1 BAG IV SCH ×2 (00:15→05:33)
[2020-08-17] MEDS: Heparin Sodium 5,000 Units/ML Vial SUBCUT SCH ×3 (04:07→19:04)
[2020-08-17] MEDS: Acetaminophen/oxyCODONE 325-5 MG Tab PO PRN ×4 (04:13→21:09)
[2020-08-17 05:54] LABS: BLOOD UREA NITROGEN,BUN 5 mg/dL (7.0-18.0); CARBON DIOXIDE,CO2 26.2 mmol/L (21.0-32.0); CHLORIDE,CL 106 mmol/L (98-107); GLUCOSE RANDOM 91 mg/dL (74-106); POTASSIUM,K 3.7 mmol/L (3.5-5.1); SODIUM,NA 142 mmol/L (136-145)
[2020-08-17] MEDS: Pantoprazole 40 MG Tab.CR PO SCH (07:08)
[2020-08-17] MEDS: Ciprofloxacin in D5W 400 MG in Premix Bag 1 BAG IV SCH ×2 (08:26)
--- NOTE | 2020-08-17 08:35 | CT ---
INDICATION: Diverticulitis versus colon mass. Abdominal pain. TECHNIQUE: CT abdomen and pelvis acquired with 100 cc Isovue 370 IV contrast. COMPARISON: August 14, 2020. FINDINGS: Lower chest: Coronary artery atherosclerosis is present. Liver: Unremarkable. Normal in size and attenuation. No masses. Gallbladder and bile ducts: Gallbladder is moderately distended but does not appear inflamed. No stone visualized. No biliary dilatation. Pancreas: Unremarkable. No mass or inflammation. Spleen: Unremarkable. Normal in size. No masses. Adrenal glands: Unremarkable. No nodules. Kidneys: Unremarkable. No masses, stones, or hydronephrosis. GI tract: Again demonstrated is inflammation amongst diverticuli in the descending colon. Colonic narrowing also present in this region. No signs of estela perforation or abscess. Remainder of the GI tract is unremarkable. Normal appendix. Vasculature: Unremarkable. Mesenteric arteries are patent. Lymph nodes: No lymphadenopathy. Omentum/Peritoneum/Abdominal Wall: Unremarkable. No sign of mass or infiltration. No free air or significant free fluid. Pelvis: Unremarkable. Bones: Unremarkable for age. IMPRESSION: No significant change from the prior exam. Suspected diverticulitis in the descending colon with stable inflammation. No convincing evidence for abscess or estela perforation. A neoplasm in this area remains a possibility. Colonoscopy after a course of treatment is recommended for further evaluation. No new abnormalities. Please note that all CT scans at this facility use dose modulation, iterative reconstruction, and/or weight-based dosing when appropriate to reduce radiation dose to as low as reasonably achievable. Dictated by Lanre Sanders MD @ Aug 17 2020 8:22AM Signed by Dr. Lanre Sanders @ Aug 17 2020 8:33AM
[2020-08-17] MEDS: Hydrochlorothiazide 25 MG Tab PO SCH (08:38)
[2020-08-17] MEDS: buPROPion 150 MG Tab.ER PO SCH (08:39)
--- NOTE | 2020-08-17 09:07 | PCM.SURGPN ---
- General Info Date of Service: 08/17/20 Functional Status: Reports: Pain Controlled, Tolerating Diet, Ambulating, Urinating. Denies: New Symptoms - Review of Systems General: Reports: No Symptoms HEENT: Reports: No Symptoms Pulmonary: Reports: No Symptoms Cardiovascular: Reports: No Symptoms Gastrointestinal: Reports: No Symptoms Genitourinary: Reports: No Symptoms Musculoskeletal: Reports: No Symptoms Skin: Reports: No Symptoms - Patient Data Vitals - Most Recent: Last Vital Signs Temp 36.8 C 08/17/20 08:00 Pulse 64 08/17/20 08:00 Resp 16 08/17/20 08:00 BP 149/70 H 08/17/20 08:00 Pulse Ox 97 08/17/20 08:00 Weight - Most Recent: 72.529 kg I&O - Last 24 Hours: Intake & Output 08/16/20 08/17/20 08/17/20 22:59 06:59 14:59 Intake Total 1375 800 Output Total 580 680 Balance 795 120 Lab Results Last 24 Hrs: Laboratory Results - last 24 hr 08/17/20 08/17/20 Range/Units 05:15 05:15 WBC 7.32 (4.0-11.0) K/uL RBC 3.81 L (4.30-5.90) M/uL Hgb 11.2 L (12.0-16.0) g/dL Hct 37.2 (36.0-46.0) % MCV 97.6 (80.0-98.0) fL MCH 29.4 (27.0-32.0) pg MCHC 30.1 L (31.0-37.0) g/dL RDW Std Deviation 48.1 (28.0-62.0) fl RDW Coeff of Akash 14 (11.0-15.0) % Plt Count 436 H (150-400) K/uL MPV 9.10 (7.40-12.00) fL Nucleated RBC % 0.0 /100WBC Nucleated RBCs # 0 K/uL Sodium 142 (136-145) mmol/L Potassium 3.7 (3.5-5.1) mmol/L Chloride 106 (98-107) mmol/L Carbon Dioxide 26.2 (21.0-32.0) mmol/L BUN 5 L (7.0-18.0) mg/dL Creatinine 0.8 (0.6-1.0) mg/dL Est Cr Clr Drug Dosing 68.82 mL/min Estimated GFR (MDRD) > 60.0 ml/min Glucose 91 (74-106) mg/dL Calcium 8.9 (8.5-10.1) mg/dL Phosphorus 3.3 (2.6-4.7) mg/dL Magnesium 1.8 (1.8-2.4) mg/dL Total Bilirubin 0.3 (0.2-1.0) mg/dL AST 17 (15-37) IU/L ALT 20 (14-63) IU/L Alkaline Phosphatase 97 (46-116) U/L Total Protein 6.4 (6.4-8.2) g/dL Albumin 2.8 L (3.4-5.0) g/dL Globulin 3.6 (2.6-4.0) g/dL Albumin/Globulin Ratio 0.8 L (0.9-1.6) Med Orders - Current: Current Medications Albuterol/Ipratropium (Duoneb 3.0-0.5 Mg/3 Ml) 3 ml NEB Q4HRRT PRN PRN Reason: Shortness of Breath Bupropion HCl (Wellbutrin Xl) 300 mg PO DAILY [facility] Last Admin: 08/17/20 08:39 Dose: 300 mg Documented by: Ciprofloxacin (Ciprofloxacin Hcl) 500 mg PO BID [facility] Heparin Sodium (Porcine) (Heparin Sodium) 5,000 units SUBCUT Q8H [facility] Last Admin: 08/17/20 04:07 Dose: 5,000 units Documented by: Hydrochlorothiazide (Hydrochlorothiazide) 25 mg PO DAILY [facility] Last Admin: 08/17/20 08:38 Dose: 25 mg Documented by: Potassium Chloride/Dextrose/Sod Cl (D5 Ns With 20 Meq Kcl) 1,000 mls @ 100 mls/hr IV ASDIRECTED [facility] Last Admin: 08/16/20 07:28 Dose: 100 mls/hr Documented by: Metronidazole (Metronidazole) 250 mg PO Q6H [facility] Morphine Sulfate (Morphine) 2 mg IVPUSH Q1H PRN PRN Reason: Pain (severe 7-10) Ondansetron HCl (Zofran) 4 mg IVPUSH Q6H PRN PRN Reason: Nausea/Vomiting Last Admin: 08/16/20 06:02 Dose: 4 mg Documented by: Oxycodone/Acetaminophen (Percocet 325-5 Mg) 2 tab PO Q4H PRN PRN Reason: Pain (moderate 4-6) Last Admin: 08/17/20 08:39 Dose: 2 tab Documented by: Pantoprazole Sodium (Protonix) 40 mg PO ACBREAKFAST [facility] Last Admin: 08/17/20 07:08 Dose: 40 mg Documented by: Promethazine HCl (Phenergan) 25 mg IM Q6H PRN PRN Reason: Nausea Sodium Chloride (Saline Flush) 10 ml FLUSH ASDIRECTED PRN PRN Reason: Keep Vein Open Sodium Chloride (Saline Flush) 2.5 ml FLUSH ASDIRECTED PRN PRN Reason: Keep Vein Open Sodium Chloride (Normal Saline) 10 ml IV ASDIRECTED PRN PRN Reason: IV Use Discontinued Medications Bupropion HCl (Wellbutrin Xl) 300 mg PO DAILY [facility] Bupropion HCl (Wellbutrin Xl) 300 mg PO DAILY [facility] Hydrochlorothiazide (Hydrochlorothiazide) 25 mg PO DAILY [facility] Last Admin: 08/16/20 09:47 Dose: Not Given Documented by: Hydromorphone HCl (Dilaudid) 1 mg IVPUSH ONETIME ONE Stop: 08/14/20 18:39 Last Admin: 08/14/20 19:12 Dose: 1 mg Documented by: Sodium Chloride (Normal Saline) 1,000 mls @ 999 mls/hr IV STAT ONE Stop: 08/14/20 16:43 Last Admin: 08/14/20 16:00 Dose: 999 mls/hr Documented by: Ciprofloxacin/Dextrose 400 mg/ (Premix) 200 mls @ 200 mls/hr IV Q12H [facility] Last Admin: 08/14/20 19:12 Dose: 200 mls/hr Documented by: Metronidazole 500 mg/ Premix 100 mls @ 100 mls/hr IV ONETIME ONE Stop: 08/14/20 19:56 Last Admin: 08/14/20 19:13 Dose: 100 mls/hr Documented by: Lactated Ringer's (Ringers, Lactated) 1,000 mls @ 125 mls/hr IV ASDIRECTED [facility] Last Admin: 08/15/20 05:25 Dose: 125 mls/hr Documented by: Ciprofloxacin/Dextrose 400 mg/ (Premix) 200 mls @ 200 mls/hr IV Q12H [facility] Last Admin: 08/17/20 08:26 Dose: 200 mls/hr Documented by: Metronidazole 500 mg/ Premix 100 mls @ 100 mls/hr IV QID [facility] Last Admin: 08/17/20 05:33 Dose: 100 mls/hr Documented by: Pantoprazole Sodium 40 mg/ (Sodium Chloride) 10 mls @ 300 mls/hr IV DAILY [facility] Last Admin: 08/15/20 08:22 Dose: 300 mls/hr Documented by: Iopamidol (Isovue Multipack-370 (76%)) 100 ml IVPUSH ONETIME ONE Stop: 08/14/20 17:05 Last Admin: 08/14/20 17:04 Dose: 100 ml Documented by: Metoprolol Succinate (Toprol Xl) 50 mg PO DAILY [facility] Last Admin: 08/16/20 09:47 Dose: Not Given Documented by: Metoprolol Tartrate (Lopressor) 5 mg IVPUSH Q4H PRN PRN Reason: Hypertension Morphine Sulfate (Morphine) 4 mg IVPUSH ONETIME ONE Stop: 08/14/20 15:46 Last Admin: 08/14/20 16:01 Dose: 4 mg Documented by: Morphine Sulfate (Morphine) 2 mg IVPUSH Q1H PRN PRN Reason: Pain (severe 7-10) Last Admin: 08/15/20 09:14 Dose: 2 mg Documented by: Ondansetron HCl (Zofran) 4 mg IVPUSH ONETIME ONE Stop: 08/14/20 15:46 Last Admin: 08/14/20 16:00 Dose: 4 mg Documented by: Pantoprazole Sodium (Protonix) 40 mg PO ACBREAKFAST [facility] Last Admin: 08/15/20 09:28 Dose: Not Given Documented by: - Exam General: Alert, Oriented HEENT: Pupils Equal Lungs: Normal Respiratory Effort Cardiovascular: Regular Rate GI/Abdominal Exam: Soft, Non-Tender, No Distention, No Mass Skin: Warm, Dry, Intact Neurological: No New Focal Deficit Sepsis Event Note - Evaluation Sepsis Screening Result: No Definite Risk - Focused Exam Vital Signs: Vital Signs Temp Pulse Resp BP Pulse Ox 08/17/20 08:00 36.8 C 64 16 149/70 H 97 08/17/20 04:00 36.8 C 75 18 145/75 H 94 L 08/17/20 00:00 36.8 C 68 18 132/68 92 L - Problem List & Annotations (1) Acute diverticulitis SNOMED Code(s): 526511323 Code(s): K57.92 - DVTRCLI OF INTEST, PART UNSP, W/O PERF OR ABSCESS W/O BLEED Status: Acute Current Visit: Yes - Problem List Review Problem List Initiated/Reviewed/Updated: Yes - My Orders Last 24 Hours: Active Orders 24 hr Category Date Time Status Communication Order [RC] ROUTINE Care 08/16/20 09:26 Active Soft Diet [DIET] Diet 08/17/20 Breakfast Active Ciprofloxacin [Ciprofloxacin HCl] Med 08/17/20 21:00 Active 500 mg PO BID hydroCHLOROthiazide Med 08/17/20 09:00 Active 25 mg PO DAILY metroNIDAZOLE Med 08/17/20 12:00 Active 250 mg PO Q6H Medication Orders Albuterol/Ipratropium (Duoneb 3.0-0.5 Mg/3 Ml) 3 ml NEB Q4HRRT PRN PRN Reason: Shortness of Breath Bupropion HCl (Wellbutrin Xl) 300 mg PO DAILY [facility] Last Admin: 08/17/20 08:39 Dose: 300 mg Documented by: Admin: 08/16/20 08:22 Dose: 300 mg Documented by: Admin: 08/15/20 20:40 Dose: 300 mg Documented by: KAUR Ciprofloxacin (Ciprofloxacin Hcl) 500 mg PO BID [facility] Heparin Sodium (Porcine) (Heparin Sodium) 5,000 units SUBCUT Q8H [facility] Last Admin: 08/17/20 04:07 Dose: 5,000 units Documented by: Admin: 08/16/20 19:40 Dose: 5,000 units Documented by: Admin: 08/16/20 11:17 Dose: 5,000 units Documented by: Admin: 08/16/20 03:41 Dose: 5,000 units Documented by: Admin: 08/15/20 18:45 Dose: 5,000 units Documented by: Admin: 08/15/20 11:32 Dose: 5,000 units Documented by: Admin: 08/15/20 04:04 Dose: 5,000 units Documented by: Admin: 08/14/20 21:04 Dose: 5,000 units Documented by: KAUR Hydrochlorothiazide (Hydrochlorothiazide) 25 mg PO DAILY [facility] Last Admin: 08/17/20 08:38 Dose: 25 mg Documented by: CHRISTOPHER Potassium Chloride/Dextrose/Sod Cl (D5 Ns With 20 Meq Kcl) 1,000 mls @ 100 mls/hr IV ASDIRECTED [facility] Last Admin: 08/16/20 07:28 Dose: 100 mls/hr Documented by: Infusion: 08/16/20 04:26 Dose: 100 mls/hr Documented by: Admin: 08/15/20 18:26 Dose: 100 mls/hr Documented by: JESSICA Metronidazole (Metronidazole) 250 mg PO Q6H [facility] Morphine Sulfate (Morphine) 2 mg IVPUSH Q1H PRN PRN Reason: Pain (severe 7-10) Ondansetron HCl (Zofran) 4 mg IVPUSH Q6H PRN PRN Reason: Nausea/Vomiting Last Admin: 08/16/20 06:02 Dose: 4 mg Documented by: KAUR Oxycodone/Acetaminophen (Percocet 325-5 Mg) 2 tab PO Q4H PRN PRN Reason: Pain (moderate 4-6) Last Admin: 08/17/20 08:39 Dose: 2 tab Documented by: Admin: 08/17/20 04:13 Dose: 2 tab Documented by: Admin: 08/16/20 19:35 Dose: 2 tab Documented by: Admin: 08/16/20 11:23 Dose: 2 tab Documented by: Admin: 08/16/20 03:41 Dose: 2 tab Documented by: Admin: 08/15/20 20:48 Dose: 2 tab Documented by: Admin: 08/15/20 16:27 Dose: 2 tab Documented by: Admin: 08/15/20 10:20 Dose: 2 tab Documented by: JESSICA Pantoprazole Sodium (Protonix) 40 mg PO ACBREAKFAST [facility] Last Admin: 08/17/20 07:08 Dose: 40 mg Documented by: Admin: 08/16/20 07:27 Dose: 40 mg Documented by: KAUR Promethazine HCl (Phenergan) 25 mg IM Q6H PRN PRN Reason: Nausea Sodium Chloride (Saline Flush) 10 ml FLUSH ASDIRECTED PRN PRN Reason: Keep Vein Open Sodium Chloride (Saline Flush) 2.5 ml FLUSH ASDIRECTED PRN PRN Reason: Keep Vein Open Sodium Chloride (Normal Saline) 10 ml IV ASDIRECTED PRN PRN Reason: IV Use - Plan Plan (Free Text/Narrative):: I repeated the patient's CT scan this am. She still has narrowing of her descending colon and the radiologist feels it is unchanged. On reviewing the images, her proximal colon is no longer distended. I feel that her inflammation looks better. She subjectively feels much better. She has bowel function. I will slowly advance her diet today and switch her to oral antibiotics. If she is doing well will discharge home tomorrow, however patient understands that we will still need to perform a colonoscopy in the near future.
[2020-08-17] MEDS: metroNIDAZOLE 250 MG Tab PO SCH ×3 (12:05→23:45)
[2020-08-17] MEDS: Ciprofloxacin 500 MG Tab PO SCH (20:07)
[2020-08-18] MEDS: Acetaminophen/oxyCODONE 325-5 MG Tab PO PRN (04:02)
[2020-08-18] MEDS: Heparin Sodium 5,000 Units/ML Vial SUBCUT SCH ×2 (04:03→12:44)
[2020-08-18] MEDS: Ondansetron 4 MG/2 ML SDV IVPUSH PRN (07:10)
[2020-08-18] MEDS: Pantoprazole 40 MG Tab.CR PO SCH (08:07)
[2020-08-18] MEDS: metroNIDAZOLE 250 MG Tab PO SCH ×2 (08:07→12:45)
[2020-08-18 08:15] VITALS: BP 153/90; PULSE 72
--- NOTE | 2020-08-18 08:56 | PCM.DCSUM1 ---
Discharge Summary - Hospital Course Free Text/Narrative:: Patient is a 49-year-old female who presented to the emergency room with nausea vomiting abdominal pain and bloating. Workup revealed acute inflammation of the descending colon with distention of the proximal colon. The patient was noted to have multiple diverticuli in the area and it was felt that this inflammation was secondary to acute diverticulitis. The patient's CBC did not show a leukocytosis or a left shift. The patient was admitted to the hospital for IV fluids, IV antibiotics, and bowel rest. Over the next couple days her abdominal pain improved significantly. She passed flatus and had a loose bowel movement. Her vital signs remained stable. A repeat CT scan was done on the third day of admission. The radiologist felt that the CT scan appeared unchanged. Upon review the proximal colon appear decompressed. Overall I felt that her inflammation had slightly improved although the colon wall was still thick. Due to the patient's clinical improvement the decision was made to advance her diet and switch her to oral antibiotics. She was able to advance to regular diet without difficulty. She continued to settle have intermittent left upper quadrant pain that was taking minimal pain medication for this with good results. She was cleared for discharge home. - Discharge Data Discharge Date: 08/18/20 Discharge Disposition: Home, Self-Care 01 Condition: Stable - Referral to Home Health Primary Care Physician: Brynn eTe, DO - Discharge Diagnosis/Problem(s) (1) Acute diverticulitis SNOMED Code(s): 850977848 ICD Code: K57.92 - DVTRCLI OF INTEST, PART UNSP, W/O PERF OR ABSCESS W/O BLEED Status: Acute - Patient Instructions Diet: Drink 8-10+ Glasses/Day, GI Soft/Low Residue/Low Fiber Activity: Rest and Relax Today Driving: Do Not Drive Showering/Bathing: May Shower Notify Provider of: Fever, Increased Pain, Nausea and/or Vomiting Other/Special Instructions: Avoid large meals. Stick to frequent small meals. Drink plenty of fluid throughout the day. FOllow up in clinic in 2 weeks. Call if having increased abdominal pain, nausea, vomiting, bloating or bloody bowel movments. - Discharge Plan *PRESCRIPTION DRUG MONITORING PROGRAM REVIEWED*: Yes *COPY OF PRESCRIPTION DRUG MONITORING REPORT IN PATIENT OLIVIA: Yes Prescriptions/Med Rec: Ciprofloxacin [Ciprofloxacin HCl] 500 mg PO BID #22 tablet metroNIDAZOLE 250 mg PO Q6H #44 tablet polyethylene glycoL 3350 [MiraLAX] 17 gm PO DAILY #1 bottle Home Medications: Home Meds hydroCHLOROthiazide [Hydrochlorothiazide] 25 mg PO DAILY 06/28/17 [History] Albuterol Sulfate [Albuterol Sulfate Hfa] 2 puff INH ASDIRECTED PRN 08/14/20 [History] Magnesium 250 mg PO DAILY 08/14/20 [History] Nebivolol [Bystolic] 15 mg PO DAILY 08/14/20 [History] Potassium Chloride 10 meq PO DAILY 08/14/20 [History] Ciprofloxacin [Ciprofloxacin HCl] 500 mg PO BID #22 tablet 08/18/20 [Rx] metroNIDAZOLE 250 mg PO Q6H #44 tablet 08/18/20 [Rx] polyethylene glycoL 3350 [MiraLAX] 17 gm PO DAILY #1 bottle 08/18/20 [Rx] Patient Handouts: Acetaminophen; Oxycodone tablets, Diverticulitis, Aspirin, ASA oral tablets, Ciprofloxacin tablets, Metronidazole tablets or capsules, Polyethylene Glycol powder Referrals: Peri Bone MD [Physician] - 08/28/20 10:00 am Brynn Tee DO [Primary Care Provider] - 08/27/20 8:00 am - Discharge Summary/Plan Comment DC Time >30 min.: No - General Info Date of Service: 08/19/20 Functional Status: Reports: Pain Controlled, Tolerating Diet, Ambulating, Urinating - Review of Systems General: Reports: No Symptoms HEENT: Reports: No Symptoms Pulmonary: Reports: No Symptoms Cardiovascular: Reports: No Symptoms Gastrointestinal: Reports: No Symptoms Genitourinary: Reports: No Symptoms Musculoskeletal: Reports: No Symptoms - Patient Data Vitals - Most Recent: Last Vital Signs Temp 36.1 C 08/18/20 08:00 Pulse 72 08/18/20 08:00 Resp 16 08/18/20 08:00 BP 153/90 H 08/18/20 08:00 Pulse Ox 97 08/18/20 08:00 Weight - Most Recent: 72.529 kg I&O - Last 24 hours: Intake & Output 08/17/20 08/18/20 08/18/20 22:59 06:59 14:59 Intake Total 1210 860 Output Total 3100 1600 Balance -4820 -680 Med Orders - Current: Current Medications Albuterol/Ipratropium (Duoneb 3.0-0.5 Mg/3 Ml) 3 ml NEB Q4HRRT PRN PRN Reason: Shortness of Breath Bupropion HCl (Wellbutrin Xl) 300 mg PO DAILY [facility] Last Admin: 08/17/20 08:39 Dose: 300 mg Documented by: Ciprofloxacin (Ciprofloxacin Hcl) 500 mg PO BID [facility] Last Admin: 08/17/20 20:07 Dose: 500 mg Documented by: Heparin Sodium (Porcine) (Heparin Sodium) 5,000 units SUBCUT Q8H [facility] Last Admin: 08/18/20 04:03 Dose: 5,000 units Documented by: Hydrochlorothiazide (Hydrochlorothiazide) 25 mg PO DAILY [facility] Last Admin: 08/17/20 08:38 Dose: 25 mg Documented by: Potassium Chloride/Dextrose/Sod Cl (D5 Ns With 20 Meq Kcl) 1,000 mls @ 100 mls/hr IV ASDIRECTED [facility] Last Admin: 08/16/20 07:28 Dose: 100 mls/hr Documented by: Metronidazole (Metronidazole) 250 mg PO Q6H [facility] Last Admin: 08/18/20 08:07 Dose: 250 mg Documented by: Morphine Sulfate (Morphine) 2 mg IVPUSH Q1H PRN PRN Reason: Pain (severe 7-10) Ondansetron HCl (Zofran) 4 mg IVPUSH Q6H PRN PRN Reason: Nausea/Vomiting Last Admin: 08/18/20 07:10 Dose: 4 mg Documented by: Oxycodone/Acetaminophen (Percocet 325-5 Mg) 2 tab PO Q4H PRN PRN Reason: Pain (moderate 4-6) Last Admin: 08/18/20 04:02 Dose: 2 tab Documented by: Pantoprazole Sodium (Protonix) 40 mg PO ACBREAKFAST [facility] Last Admin: 08/18/20 08:07 Dose: 40 mg Documented by: Polyethylene Glycol (Miralax) 17 gm PO DAILY [facility] Promethazine HCl (Phenergan) 25 mg IM Q6H PRN PRN Reason: Nausea Sodium Chloride (Saline Flush) 10 ml FLUSH ASDIRECTED PRN PRN Reason: Keep Vein Open Sodium Chloride (Saline Flush) 2.5 ml FLUSH ASDIRECTED PRN PRN Reason: Keep Vein Open Sodium Chloride (Normal Saline) 10 ml IV ASDIRECTED PRN PRN Reason: IV Use Discontinued Medications Bupropion HCl (Wellbutrin Xl) 300 mg PO DAILY [facility] Bupropion HCl (Wellbutrin Xl) 300 mg PO DAILY [facility] Hydrochlorothiazide (Hydrochlorothiazide) 25 mg PO DAILY [facility] Last Admin: 08/16/20 09:47 Dose: Not Given Documented by: Hydromorphone HCl (Dilaudid) 1 mg IVPUSH ONETIME ONE Stop: 08/14/20 18:39 Last Admin: 08/14/20 19:12 Dose: 1 mg Documented by: Sodium Chloride (Normal Saline) 1,000 mls @ 999 mls/hr IV STAT ONE Stop: 08/14/20 16:43 Last Admin: 08/14/20 16:00 Dose: 999 mls/hr Documented by: Ciprofloxacin/Dextrose 400 mg/ (Premix) 200 mls @ 200 mls/hr IV Q12H [facility] Last Admin: 08/14/20 19:12 Dose: 200 mls/hr Documented by: Metronidazole 500 mg/ Premix 100 mls @ 100 mls/hr IV ONETIME ONE Stop: 08/14/20 19:56 Last Admin: 08/14/20 19:13 Dose: 100 mls/hr Documented by: Lactated Ringer's (Ringers, Lactated) 1,000 mls @ 125 mls/hr IV ASDIRECTED [facility] Last Admin: 08/15/20 05:25 Dose: 125 mls/hr Documented by: Ciprofloxacin/Dextrose 400 mg/ (Premix) 200 mls @ 200 mls/hr IV Q12H [facility] Last Admin: 08/17/20 08:26 Dose: 200 mls/hr Documented by: Metronidazole 500 mg/ Premix 100 mls @ 100 mls/hr IV QID [facility] Last Admin: 08/17/20 05:33 Dose: 100 mls/hr Documented by: Pantoprazole Sodium 40 mg/ (Sodium Chloride) 10 mls @ 300 mls/hr IV DAILY [facility] Last Admin: 08/15/20 08:22 Dose: 300 mls/hr Documented by: Iopamidol (Isovue Multipack-370 (76%)) 100 ml IVPUSH ONETIME ONE Stop: 08/14/20 17:05 Last Admin: 08/14/20 17:04 Dose: 100 ml Documented by: Metoprolol Succinate (Toprol Xl) 50 mg PO DAILY [facility] Last Admin: 08/16/20 09:47 Dose: Not Given Documented by: Metoprolol Tartrate (Lopressor) 5 mg IVPUSH Q4H PRN PRN Reason: Hypertension Morphine Sulfate (Morphine) 4 mg IVPUSH ONETIME ONE Stop: 08/14/20 15:46 Last Admin: 08/14/20 16:01 Dose: 4 mg Documented by: Morphine Sulfate (Morphine) 2 mg IVPUSH Q1H PRN PRN Reason: Pain (severe 7-10) Last Admin: 08/15/20 09:14 Dose: 2 mg Documented by: Ondansetron HCl (Zofran) 4 mg IVPUSH ONETIME ONE Stop: 08/14/20 15:46 Last Admin: 08/14/20 16:00 Dose: 4 mg Documented by: Pantoprazole Sodium (Protonix) 40 mg PO ACBREAKFAST [facility] Last Admin: 08/15/20 09:28 Dose: Not Given Documented by: - Exam General: Reports: Alert, Oriented, Cooperative HEENT: Reports: Pupils Equal, Pupils Reactive Lungs: Reports: Clear to Auscultation, Normal Respiratory Effort Cardiovascular: Reports: Regular Rate, Regular Rhythm GI/Abdominal Exam: Soft, Non-Tender, No Distention, No Mass Back Exam: Reports: Normal Inspection Extremities: Normal Inspection Skin: Reports: Warm, Dry, Intact
[2020-08-18] MEDS ORDERED: Polyethylene Glycol 3350 Powder 17 GM Packet PO SCH (09:00)
[2020-08-18] MEDS: Hydrochlorothiazide 25 MG Tab PO SCH (09:21)
[2020-08-18] MEDS: Ciprofloxacin 500 MG Tab PO SCH (09:21)
[2020-08-18] MEDS: buPROPion 150 MG Tab.ER PO SCH (09:24)
== END 2020-08-18 12:15 | disposition home or self-care (01) | DRG 392 ==
LOC: MW.ED 15:02 → MW.MS 19:29 → OBSVTOIN 08-15 08:35 → MW.MS 08-15 18:13
PROVIDERS: ADMIT Surgery; ATTEND Surgery
DX: K57.32 Diverticulitis of large intestine without perforation or abscess without bleeding (principal); E87.1 Hypo-osmolality and hyponatremia; G47.33 Obstructive sleep apnea (adult) (pediatric); I10 Essential (primary) hypertension; J45.909 Unspecified asthma, uncomplicated; G89.29 Other chronic pain; M54.9 Dorsalgia, unspecified; E87.8 Other disorders of electrolyte and fluid balance, not elsewhere classified; F41.9 Anxiety disorder, unspecified; F32.9 Major depressive disorder, single episode, unspecified; Z87.891 Personal history of nicotine dependence; Z79.899 Other long term (current) drug therapy; Z86.718 Personal history of other venous thrombosis and embolism; Z79.01 Long term (current) use of anticoagulants; Z88.8 Allergy status to other drugs, medicaments and biological substances; Z88.0 Allergy status to penicillin; Z88.2 Allergy status to sulfonamides; Z91.018 Allergy to other foods; Z20.828 Contact with and (suspected) exposure to other viral communicable diseases
CPT/HCPCS: 36415; 74177; 74177-26; 80053; 81001; 81025; 82272; 83605; 83690; 83735; 84100; 85025; 85027; 87045; 87046; 87328; 87329; 87449; 87899; 94660; 96361; 96365; 96366; 96368; 96372; 96375; 96376; 99283; 99285-25; A9270-GY; C9113; G0378; J0744; J1170; J1644; J2270; J2405; J3480; J3490; J7030; J7120; Q9967; U0002

== ENCOUNTER 2020-08-20 12:52 | Emergency (ER) | payer OTHER ==
[2020-08-20] MEDS ORDERED: Sodium Chloride 0.9% 10 ML Syringe FLUSH PRN (13:16)
[2020-08-20] MEDS ORDERED: Sodium Chloride 0.9% 2.5 ML Syringe FLUSH PRN (13:16)
--- NOTE | 2020-08-20 13:30 | EDM.PDOC ---
ED [facility] GENERAL MEDICAL PROBLEM - General Chief Complaint: Abdominal Pain Stated Complaint: COLON COMPLICATIONS Time Seen by Provider: 08/20/20 13:01 Source of Information: Reports: Patient, Old Records History Limitations: Reports: No Limitations - History of Present Illness INITIAL COMMENTS - FREE TEXT/NARRATIVE: This is a very pleasant 49-year-old female with a past medical history of hypertension, CHANDAN, recent hospitalization for acute diverticulitis presenting with abdominal pain, nausea, vomiting, and constipation. Patient was hospitalized here from 08/14 to 08/18/2020 for acute diverticulitis, she was discharged home with prescriptions for ciprofloxacin, metronidazole, and MiraLAX. She presents back to the emergency department complaining of 2 days of worsening left upper quadrant and left lower quadrant abdominal pain. She also complains of nausea without emesis and that she has not had a bowel movement since she left the hospital. She states that she has been taking her antibiotics, MiraLAX as prescribed. She denies any fever, chills, hematemesis, diarrhea, bloody stools, dysuria, urinary frequency, or abdominal distention. No prior history of abdominal surgeries. ROS: A 10-point review of systems was negative, except as noted in the HPI (or in the ROS section of this note). Past medical history: Reviewed, no additional pertinent history. Surgical history: Reviewed in system, no additional pertinent history. Social history: Reviewed in system, no additional pertinent history. Family history: Reviewed in system, no additional pertinent history. PHYSICAL EXAM Vital signs reviewed. Nursing notes reviewed. Constitutional: Awake, alert, non-distressed. Head: Normocephalic, atraumatic. Eyes: EOMI, conjunctiva normal, no discharge, no scleral icterus. Ears, Nose, Throat: External ears and nose normal, moist oral mucosa. Cardiovascular: 2+ radial pulse, capillary refill less than 2 seconds. Pulmonary: normal work of breathing, no accessory muscle use. Abdomen/GI: Soft, very mild left upper quadrant and left lower quadrant tenderness, nondistended, no guarding or rigidity, no masses. Musculoskeletal: No deformities. Integumentary: Appropriate color for ethnicity, warm, dry, no pallor or jaundice, no rash. Neurologic: Alert, answering questions appropriately, normal speech, no facial droop, moving all extremities well. Psychiatric: Appropriate mood and affect, normal thought process. left abdomen, low abdomen Pain Score (Numeric/FACES): 3 - Related Data Allergies Allergy/AdvReac Type Severity Reaction Status Date / Time diphenhydramine Allergy Other Verified 08/20/20 13:04 [From Benadryl] Penicillins Allergy Anaphylactic Verified 08/20/20 13:04 Shock Sulfa (Sulfonamide Allergy Anaphylactic Verified 08/20/20 13:04 Antibiotics) Shock apple juice Allergy Anaphylactic Uncoded 08/20/20 13:04 Shock Home Meds: Home Meds hydroCHLOROthiazide [Hydrochlorothiazide] 25 mg PO DAILY 06/28/17 [History] Albuterol Sulfate [Albuterol Sulfate Hfa] 2 puff INH ASDIRECTED PRN 08/14/20 [History] Magnesium 250 mg PO DAILY 08/14/20 [History] Nebivolol [Bystolic] 15 mg PO DAILY 08/14/20 [History] Potassium Chloride 10 meq PO DAILY 08/14/20 [History] Ciprofloxacin [Ciprofloxacin HCl] 500 mg PO BID #22 tablet 08/18/20 [Rx] metroNIDAZOLE 250 mg PO Q6H #44 tablet 08/18/20 [Rx] polyethylene glycoL 3350 [MiraLAX] 17 gm PO DAILY #1 bottle 08/18/20 [Rx] Past Medical History HEENT History: Reports: None Cardiovascular History: Reports: Blood Clots/VTE/DVT, Hypertension Other Cardiovascular History: DVT L thigh Respiratory History: Reports: Asthma, Sleep Apnea Gastrointestinal History: Reports: None Genitourinary History: Reports: None [employer] History: Reports: Musculoskeletal History: Reports: Back Pain, Chronic Neurological History: Reports: None Psychiatric History: Reports: Anxiety, Depression Endocrine/Metabolic History: Reports: None Hematologic History: Reports: None Immunologic History: Reports: None Oncologic (Cancer) History: Reports: None Dermatologic History: Reports: None - Infectious Disease History Infectious Disease History: Reports: Chicken Pox - Past Surgical History Head Surgeries/Procedures: Reports: None Female Surgical History: Reports: D&C Musculoskeletal Surgical History: Reports: Other (See Below) Other Musculoskeletal Surgeries/Procedures:: knee sx Social & Family History - Family History Family Medical History: Noncontributory - Tobacco Use Tobacco Use Status *Q: Never Tobacco User - Caffeine Use Caffeine Use: Reports: None - Recreational Drug Use Recreational Drug Use: No ED ROS GENERAL - Review of Systems Review Of Systems: See Below ED EXAM, GI/ABD - Physical Exam Exam: See Below Course - Vital Signs Text/Narrative:: 49-year-old female presenting with left upper quadrant and left lower quadrant Gary pain along with nausea and constipation. Patient hemodynamically stable, afebrile, well-appearing, looks nontoxic. Differential diagnosis includes but is not limited to: Complicated diverticulitis, bowel perforation, intra-abdominal abscess, phlegmon, acute constipation, less likely appendicitis, intra-abdominal infection, less likely sepsis, less likely UTI or pyelonephritis, and many others. 1341: Patient resting comfortably. Labs in process. Ordered CT abdomen/pelvis, Zofran, oxycodone, made n.p.o. 1411: CBC reassuring. Normal electrolytes and renal function. Normal lactate. LFTs show mild elevations of AST, ALT, alkaline phosphatase. Normal lipase. Awaiting CT scan of the abdomen/pelvis. 1732: Repeat CT scan of the abdomen/pelvis demonstrates a developing colonic obstruction at the level of the splenic flexure concerning for an annular constricting lesion. Radiologist noted improving inflammatory changes compared to most recent CT imaging study. Radiologist does have significant concern for colonic malignancy. I spoke with our general surgeon Dr. Kirk who does not feel comfortable admitting the patient here because he feels that they will need colorectal surgery evaluation and may need an ostomy. I attempted to secure a medical surgical bed and [place] or [place], however there are no beds there. I contacted the [facility] and I am waiting for their transfer center to call me back regarding bed availability. 1740: I spoke with Dr. Quezada and Dr. Elias at the [facility] in [facility] who agreed to accept the transfer to their ED. Patient is resting comfortably. 1757: I did offer ambulance transport to the patient, but she would like her spouse to drive her to the [facility]. I feel this is reasonable as her pain and nausea are well controlled at this point and she is not getting any IV medications. She was given transfer paperwork and will be discharged to proceed immediately to the [facility] as an ER to ER transfer. She was discharged in good condition. Last Recorded V/S: Last Vital Signs Temp 36.6 C 08/20/20 13:00 Pulse 84 08/20/20 16:46 Resp 18 08/20/20 16:46 BP 118/76 08/20/20 16:46 Pulse Ox 94 L 08/20/20 16:46 - Orders/Labs/Meds Orders: Active Orders 24 hr Category Date Time Status Pulse Oximetry [RC] ASDIRECTED Care 08/20/20 13:16 Active Nothing Per Oral Diet [DIET] Diet 08/20/20 Lunch Active Sodium Chloride 0.9% [Saline Flush] Med 08/20/20 13:16 Active 10 ml FLUSH ASDIRECTED PRN Sodium Chloride 0.9% [Saline Flush] Med 08/20/20 13:16 Active 2.5 ml FLUSH ASDIRECTED PRN Saline Lock Insert [OM.PC] Stat Oth 08/20/20 13:16 Ordered Medication Orders Sodium Chloride (Saline Flush) 10 ml FLUSH ASDIRECTED PRN PRN Reason: Keep Vein Open Last Admin: 08/20/20 13:47 Dose: 10 ml Documented by: ZAC Sodium Chloride (Saline Flush) 2.5 ml FLUSH ASDIRECTED PRN PRN Reason: Keep Vein Open Last Admin: 08/20/20 13:47 Dose: 2.5 ml Documented by: ZAC Labs: Laboratory Tests 08/20/20 08/20/20 08/20/20 Range/Units 13:28 13:28 13:28 WBC 10.46 (4.0-11.0) K/uL RBC 4.90 (4.30-5.90) M/uL Hgb 14.8 (12.0-16.0) g/dL Hct 46.8 H (36.0-46.0) % MCV 95.5 (80.0-98.0) fL MCH 30.2 (27.0-32.0) pg MCHC 31.6 (31.0-37.0) g/dL RDW Std Deviation 47.5 (28.0-62.0) fl RDW Coeff of Akash 14 (11.0-15.0) % Plt Count 558 H (150-400) K/uL MPV 9.50 (7.40-12.00) fL Neut % (Auto) 73.7 (48.0-80.0) % Lymph % (Auto) 18.5 (16.0-40.0) % Gilliam % (Auto) 6.2 (0.0-15.0) % Eos % (Auto) 1.1 (0.0-7.0) % Baso % (Auto) 0.5 (0.0-1.5) % Neut # (Auto) 7.7 H (1.4-5.7) K/uL Lymph # (Auto) 1.9 (0.6-2.4) K/uL Gilliam # (Auto) 0.7 (0.0-0.8) K/uL Eos # (Auto) 0.1 (0.0-0.7) K/uL Baso # (Auto) 0.1 (0.0-0.1) K/uL Nucleated RBC % 0.0 /100WBC Nucleated RBCs # 0 K/uL Lactate 0.9 (0.20-2.00) mmol/L Sodium 135 L (136-145) mmol/L Potassium 4.6 (3.5-5.1) mmol/L Chloride 98 (98-107) mmol/L Carbon Dioxide 28.4 (21.0-32.0) mmol/L BUN 11 (7.0-18.0) mg/dL Creatinine 0.8 (0.6-1.0) mg/dL Est Cr Clr Drug Dosing 68.82 mL/min Estimated GFR (MDRD) > 60.0 ml/min Glucose 102 (74-106) mg/dL Calcium 10.0 (8.5-10.1) mg/dL Total Bilirubin 0.2 (0.2-1.0) mg/dL AST 81 H (15-37) IU/L ALT 90 H (14-63) IU/L Alkaline Phosphatase 143 H (46-116) U/L Total Protein 8.1 (6.4-8.2) g/dL Albumin 4.0 (3.4-5.0) g/dL Globulin 4.1 H (2.6-4.0) g/dL Albumin/Globulin Ratio 1.0 (0.9-1.6) Lipase 130 (73-393) U/L Meds: Medications Generic Name Dose Route Start Last Admin Trade Name Nancy PRN Reason Stop Dose Admin Sodium Chloride 10 ml 08/20/20 13:16 08/20/20 13:47 Saline Flush FLUSH 10 ml ASDIRECTED PRN Administration Keep Vein Open Sodium Chloride 2.5 ml 08/20/20 13:16 08/20/20 13:47 Saline Flush FLUSH 2.5 ml ASDIRECTED PRN Administration Keep Vein Open Discontinued Medications Generic Name Dose Route Start Last Admin Trade Name Nancy PRN Reason Stop Dose Admin Ondansetron HCl 4 mg 08/20/20 13:39 08/20/20 13:45 Zofran IVPUSH 08/20/20 13:40 4 mg ONETIME ONE Administration Oxycodone HCl 10 mg 08/20/20 13:39 08/20/20 13:44 Oxycodone PO 08/20/20 13:40 10 mg ONETIME ONE Administration Departure - Departure Time of Disposition: 17:32 Disposition: DC/Tfer to Acute Hospital 02 Condition: Good Clinical Impression: Colonic obstruction - Discharge Information Referrals: Brynn Tee DO [Primary Care Provider] - Forms: ED Department Discharge Sepsis Event Note (ED) - Evaluation Sepsis Screening Result: No Definite Risk - Focused Exam Vital Signs: Vital Signs Temp Pulse Resp BP Pulse Ox 08/20/20 16:46 84 18 118/76 94 L 08/20/20 14:47 64 18 114/54 L 94 L 08/20/20 13:00 36.6 C 71 18 138/91 H 97 - My Orders Last 24 Hours: My Active Orders 08/20/20 Lunch Nothing Per Oral Diet [DIET] 08/20/20 13:16 Pulse Oximetry [RC] ASDIRECTED Sodium Chloride 0.9% [Saline Flush] 10 ml FLUSH ASDIRECTED PRN Sodium Chloride 0.9% [Saline Flush] 2.5 ml FLUSH ASDIRECTED PRN Saline Lock Insert [OM.PC] Stat - Assessment/Plan Last 24 Hours: My Active Orders 08/20/20 Lunch Nothing Per Oral Diet [DIET] 08/20/20 13:16 Pulse Oximetry [RC] ASDIRECTED Sodium Chloride 0.9% [Saline Flush] 10 ml FLUSH ASDIRECTED PRN Sodium Chloride 0.9% [Saline Flush] 2.5 ml FLUSH ASDIRECTED PRN Saline Lock Insert [OM.PC] Stat
[2020-08-20] MEDS ORDERED: Ondansetron 4 MG/2 ML SDV IVPUSH ONE (13:39)
[2020-08-20] MEDS ORDERED: oxyCODONE 5 MG Tab PO ONE (13:39)
[2020-08-20 14:07] LABS: BLOOD UREA NITROGEN,BUN 11 mg/dL (7.0-18.0); CARBON DIOXIDE,CO2 28.4 mmol/L (21.0-32.0); CHLORIDE,CL 98 mmol/L (98-107); GLUCOSE RANDOM 102 mg/dL (74-106); LIPASE 130 U/L (73-393); POTASSIUM,K 4.6 mmol/L (3.5-5.1); SODIUM,NA 135 mmol/L (136-145)
--- NOTE | 2020-08-20 16:34 | CT ---
INDICATION: Worsening pain and constipation COMPARISON: August 17, 2020 and August 14, 2020 TECHNIQUE: CT examination of the abdomen and pelvis was performed following the uneventful intravenous administration of 100 cc of Isovue 370. Thin section axial images were obtained from the lung bases through the pubic symphysis. Oral contrast was not administered. Please note that all CT scans at this facility use dose modulation, iterative reconstruction, and/or weight-based dosing when appropriate to reduce radiation dose to as low as reasonably achievable. FINDINGS: LUNG BASES: No significant abnormality at the lung bases.The heart size is normal at the lung bases. LIVER/BILIARY SYSTEM:The liver is normal in size and configuration. There is no focal mass and there is no intra- or extra hepatic biliary ductal dilatation.The gallbladder is contracted but otherwise unremarkable ADRENALS: Normal KIDNEYS, URETERS and BLADDER:The kidneys appear normal. No visible mass, calculus or hydronephrosis. The ureters and bladder as visualized appear normal. SPLEEN:Normal appearance. PANCREAS: Appears normal. RETROPERITONEUM and MESENTERY: There is no mass, adenopathy or aortic aneurysm. GASTROINTESTINAL SYSTEM: There is dilation of feces within transverse colon, cecum and ascending colon. There appears to be a developing colonic obstruction at the level of the proximal descending colon at the hepatic flexure. I believe this is more likely to be an annular constricting neoplasm than a diverticulitis. There are inflammatory changes in this area. No collection direct evaluation is advised PELVIS: No mass, adenopathy or free fluid. OSSEOUS STRUCTURES and ABDOMINAL WALL: There is an age-appropriate appearance of the osseous structures.No significant abdominal wall defect. OTHER: No free fluid or free air. IMPRESSION: 1. Developing colonic obstruction at the level of the splenic flexure. The finding at the splenic flexure has imaging features more suggestive an annular constricting lesion rather than diverticulitis. There is no collection. The inflammatory changes in this area have improved since the prior 2 studies. Direct evaluation of the colon is advised. 2. I discussed the above findings with Jonathon Espinal at 4:30 p.m. on August 20, [address] note that all [address] scans at this facility use dose modulation, iterative reconstruction, and/or weight-based dosing when appropriate to reduce radiation dose to as low as reasonably achievable. Dictated by Travis Garcia MD @ Aug 20 2020 4:20PM Signed by Dr. Travis Garcia @ Aug 20 2020 4:33PM
[2020-08-20 18:11] VITALS: BP 131/93; PULSE 70
[2020-08-20] MEDS ORDERED: Iopamidol 755 MG/ML 500 ML Multipack Bottle IVPUSH STA (19:39)
== END 2020-08-20 18:07 ==
LOC: MW.ED 12:52
DX: K56.609 Unspecified intestinal obstruction, unspecified as to partial versus complete obstruction (principal); I10 Essential (primary) hypertension; J45.909 Unspecified asthma, uncomplicated; Z88.8 Allergy status to other drugs, medicaments and biological substances; Z88.0 Allergy status to penicillin; Z88.2 Allergy status to sulfonamides; Z91.018 Allergy to other foods; Z79.899 Other long term (current) drug therapy
CPT/HCPCS: 74177; 80053; 83605; 83690; 85025; 96374; 99284; A9270; J2405; Q9967

== ENCOUNTER 2020-08-29 17:28 | Emergency (ER) | payer OTHER ==
[2020-08-29] MEDS ORDERED: fentaNYL 50 MCG/ML SDV IVPUSH ONE (18:18)
[2020-08-29] MEDS ORDERED: Sodium Chloride 0.9% 1,000 ML IV ONE (18:18)
[2020-08-29] MEDS ORDERED: Ondansetron 4 MG/2 ML SDV IVPUSH ONE (18:18)
[2020-08-29] MEDS ORDERED: LORazepam 2 MG/ML SDV IVPUSH ONE (18:41)
--- NOTE | 2020-08-29 18:41 | EDM.PDOC ---
ED HPI GENERAL MEDICAL PROBLEM - General Chief Complaint: Gastrointestinal Problem Stated Complaint: VOMTTING/BODY PAIN/ Time Seen by Provider: 08/29/20 17:39 Source of Information: Reports: Patient History Limitations: Reports: No Limitations - History of Present Illness INITIAL COMMENTS - FREE TEXT/NARRATIVE: Presents with a history of recent diverticulitis. She was hospitalized here from 08/14-08/18 for acute diverticulitis and was discharged to home after 5 days with a course of ciprofloxacin, metronidazole and MiraLAX. She presented back to the emergency room here on 08/20/2020 complaining of 2 days of worsening left upper quadrant and lower left quadrant abdominal pain. That was accompanied by nausea without emesis and she had had a bowel movement since she left the hospital [address] of the abdomen pelvis demonstrated a developing colonic obstruction at the level of the splenic flexure concerning for an annular constricting lesion. The radiologist noted improving inflammatory changes compared to the previous CT scan of 08/14. The patient was transferred to [facility] for further evaluation. The patient states she was hospitalized at the [facility] for 4 days from 08/20-08/24. To the patient she was managed conservatively with IV fluids, pain medication and without an NG tube. She had a colon prep and a colonoscopy and was sent home. She states there were 2 masses found on the colonoscopy 1 of which was a polyp. She had a stricture but not a blockage. The surgeon there is awaiting pathology reports from the biopsy. She will hear back on Monday regarding pathology findings and further treatment plan. Yesterday, she had a lot of abdominal pain and was seen by general surgery here on an outpatient basis. A CT scan of the abdomen and pelvis yesterday redemonstration of a moderate stool seen throughout the proximal colon with somewhat abrupt caliber transition and inflammatory changes of the proximal descending colon which the radiologist reported as stable to slightly increased from comparison the comparison on 08/20/2020 . No other new acute abnormality. She was sent home. Now today again she has left upper and left lower quadrant spasmodic abdominal pain along with almost continuous vomiting. Abdomen Pain Score (Numeric/FACES): 10 - Related Data Allergies Allergy/AdvReac Type Severity Reaction Status Date / Time diphenhydramine Allergy Other Verified 08/29/20 18:04 [From Benadryl] Penicillins Allergy Anaphylactic Verified 08/29/20 18:04 Shock Sulfa (Sulfonamide Allergy Anaphylactic Verified 08/29/20 18:04 Antibiotics) Shock apple juice Allergy Anaphylactic Uncoded 08/20/20 13:04 Shock Home Meds: Home Meds hydroCHLOROthiazide [Hydrochlorothiazide] 25 mg PO DAILY 06/28/17 [History] Albuterol Sulfate [Albuterol Sulfate Hfa] 2 puff INH ASDIRECTED PRN 08/14/20 [History] Magnesium 250 mg PO DAILY 08/14/20 [History] Nebivolol [Bystolic] 15 mg PO DAILY 08/14/20 [History] Potassium Chloride 10 meq PO DAILY 08/14/20 [History] Ciprofloxacin [Ciprofloxacin HCl] 500 mg PO BID #22 tablet 08/18/20 [Rx] metroNIDAZOLE 250 mg PO Q6H #44 tablet 08/18/20 [Rx] polyethylene glycoL 3350 [MiraLAX] 17 gm PO DAILY #1 bottle 08/18/20 [Rx] Dicyclomine [Bentyl] 20 mg PO QIDACANDBED PRN #20 tablet 08/29/20 [Rx] Ondansetron [Zofran ODT] 1 tab PO Q6H PRN #8 tab.dis 08/29/20 [Rx] oxyCODONE 5 mg PO Q4HR PRN 08/29/20 [History] Past Medical History HEENT History: Reports: None Cardiovascular History: Reports: Blood Clots/VTE/DVT, Hypertension Other Cardiovascular History: DVT L thigh Respiratory History: Reports: Asthma, Sleep Apnea Gastrointestinal History: Reports: None, Diverticulosis Genitourinary History: Reports: None 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: Musculoskeletal History: Reports: Back Pain, Chronic Neurological History: Reports: None Psychiatric History: Reports: Anxiety, Depression Endocrine/Metabolic History: Reports: None Hematologic History: Reports: None Immunologic History: Reports: None Oncologic (Cancer) History: Reports: None Dermatologic History: Reports: None - Infectious Disease History Infectious Disease History: Reports: Chicken Pox - Past Surgical History Head Surgeries/Procedures: Reports: None Female Surgical History: Reports: D&C Musculoskeletal Surgical History: Reports: Other (See Below) Other Musculoskeletal Surgeries/Procedures:: knee sx Social & Family History - Family History Family Medical History: Noncontributory - Caffeine Use Caffeine Use: Reports: None - Recreational Drug Use Recreational Drug Use: No ED ROS GENERAL - Review of Systems Review Of Systems: Comprehensive ROS is negative, except as noted in HPI. ED EXAM, GI/ABD - Physical Exam Exam: See Below General Appearance: Alert, No Apparent Distress Ears: Normal External Exam Nose: Normal Inspection Throat/Mouth: Normal Inspection Head: Atraumatic, Normocephalic Neck: Normal Inspection Respiratory/Chest: No Respiratory Distress, Lungs Clear, Normal Breath Sounds Cardiovascular: Normal Peripheral Pulses, Regular Rate, Rhythm, No Murmur GI/Abdominal Exam: Soft, No Distention, Other (Left sided abdominal mild tenderness) Back Exam: Normal Inspection Extremities: Normal Inspection Neurological: Alert, Oriented, Normal Cognition Psychiatric: Normal Affect, Normal Mood Skin Exam: Warm, Dry, Intact, Normal Color, No Rash Lymphatic: No Adenopathy Course - Vital Signs Last Recorded V/S: Last Vital Signs Temp 35.6 C L 08/29/20 18:05 Pulse 83 08/29/20 18:05 Resp 18 08/29/20 18:05 BP 142/100 H 08/29/20 18:05 Pulse Ox 97 08/29/20 18:05 - Orders/Labs/Meds Labs: Laboratory Tests 08/29/20 08/29/20 08/29/20 Range/Units 17:59 18:31 18:31 WBC 9.62 (4.0-11.0) K/uL RBC 4.92 (4.30-5.90) M/uL Hgb 14.8 (12.0-16.0) g/dL Hct 45.5 (36.0-46.0) % MCV 92.5 (80.0-98.0) fL MCH 30.1 (27.0-32.0) pg MCHC 32.5 (31.0-37.0) g/dL RDW Std Deviation 45.8 (28.0-62.0) fl RDW Coeff of Akash 14 (11.0-15.0) % Plt Count 586 H (150-400) K/uL MPV 9.50 (7.40-12.00) fL Neut % (Auto) 71.2 (48.0-80.0) % Lymph % (Auto) 18.7 (16.0-40.0) % [place] % (Auto) 8.0 (0.0-15.0) % Eos % (Auto) 1.5 (0.0-7.0) % Baso % (Auto) 0.6 (0.0-1.5) % Neut # (Auto) 6.9 H (1.4-5.7) K/uL Lymph # (Auto) 1.8 (0.6-2.4) K/uL [place] # (Auto) 0.8 (0.0-0.8) K/uL Eos # (Auto) 0.1 (0.0-0.7) K/uL Baso # (Auto) 0.1 (0.0-0.1) K/uL Nucleated RBC % 0.0 /100WBC Nucleated RBCs # 0 K/uL Sodium 135 L (136-145) mmol/L Potassium 3.0 L (3.5-5.1) mmol/L Chloride 98 (98-107) mmol/L Carbon Dioxide 26.7 (21.0-32.0) mmol/L BUN 7 (7.0-18.0) mg/dL Creatinine 1.0 (0.6-1.0) mg/dL Est Cr Clr Drug Dosing 55.06 mL/min Estimated GFR (MDRD) 58.5 ml/min Glucose 116 H (74-106) mg/dL Calcium 10.0 (8.5-10.1) mg/dL Total Bilirubin 0.3 (0.2-1.0) mg/dL AST 21 (15-37) IU/L ALT 36 (14-63) IU/L Alkaline Phosphatase 96 (46-116) U/L Total Protein 8.2 (6.4-8.2) g/dL Albumin 3.8 (3.4-5.0) g/dL Globulin 4.4 H (2.6-4.0) g/dL Albumin/Globulin Ratio 0.9 (0.9-1.6) Urine Color YELLOW Urine Appearance SLT CLOUDY Urine pH 7.0 (5.0-8.0) Ur Specific [place] 1.015 (1.001-1.035) Urine Protein TRACE H (NEGATIVE) mg/dL Urine Glucose (UA) NEGATIVE (NEGATIVE) mg/dL Urine Ketones NEGATIVE (NEGATIVE) mg/dL Urine Occult Blood TRACE-INTACT H (NEGATIVE) Urine Nitrite NEGATIVE (NEGATIVE) Urine Bilirubin NEGATIVE (NEGATIVE) Urine Urobilinogen 0.2 (<2.0) EU/dL Ur Leukocyte Esterase TRACE H (NEGATIVE) Urine RBC 0-2 (0-2/HPF) Urine WBC 1-2 (0-5/HPF) Ur Epithelial Cells FEW (NONE-FEW) Urine Bacteria FEW (NEGATIVE) SARS-CoV-2 RNA (DUNIA) (NEGATIVE) 08/29/20 Range/Units 19:15 WBC (4.0-11.0) K/uL RBC (4.30-5.90) M/uL Hgb (12.0-16.0) g/dL Hct (36.0-46.0) % MCV (80.0-98.0) fL MCH (27.0-32.0) pg MCHC (31.0-37.0) g/dL RDW Std Deviation (28.0-62.0) fl RDW Coeff of Akash (11.0-15.0) % Plt Count (150-400) K/uL MPV (7.40-12.00) fL Neut % (Auto) (48.0-80.0) % Lymph % (Auto) (16.0-40.0) % [place] % (Auto) (0.0-15.0) % Eos % (Auto) (0.0-7.0) % Baso % (Auto) (0.0-1.5) % Neut # (Auto) (1.4-5.7) K/uL Lymph # (Auto) (0.6-2.4) K/uL [place] # (Auto) (0.0-0.8) K/uL Eos # (Auto) (0.0-0.7) K/uL Baso # (Auto) (0.0-0.1) K/uL Nucleated RBC % /100WBC Nucleated RBCs # K/uL Sodium (136-145) mmol/L Potassium (3.5-5.1) mmol/L Chloride (98-107) mmol/L Carbon Dioxide (21.0-32.0) mmol/L BUN (7.0-18.0) mg/dL Creatinine (0.6-1.0) mg/dL Est Cr Clr Drug Dosing mL/min Estimated GFR (MDRD) ml/min Glucose (74-106) mg/dL Calcium (8.5-10.1) mg/dL Total Bilirubin (0.2-1.0) mg/dL AST (15-37) IU/L ALT (14-63) IU/L Alkaline Phosphatase (46-116) U/L Total Protein (6.4-8.2) g/dL Albumin (3.4-5.0) g/dL Globulin (2.6-4.0) g/dL Albumin/Globulin Ratio (0.9-1.6) Urine Color Urine Appearance Urine pH (5.0-8.0) Ur Specific [place] (1.001-1.035) Urine Protein (NEGATIVE) mg/dL Urine Glucose (UA) (NEGATIVE) mg/dL Urine Ketones (NEGATIVE) mg/dL Urine Occult Blood (NEGATIVE) Urine Nitrite (NEGATIVE) Urine Bilirubin (NEGATIVE) Urine Urobilinogen (<2.0) EU/dL Ur Leukocyte Esterase (NEGATIVE) Urine RBC (0-2/HPF) Urine WBC (0-5/HPF) Ur Epithelial Cells (NONE-FEW) Urine Bacteria (NEGATIVE) SARS-CoV-2 RNA (DUNIA) NEGATIVE (NEGATIVE) Meds: Medications Discontinued Medications Generic Name Dose Route Start Last Admin Trade Name Freq PRN Reason Stop Dose Admin Dicyclomine HCl 10 mg 08/29/20 21:15 Bentyl PO 08/29/20 21:16 ONETIME ONE Fentanyl 50 mcg 08/29/20 18:18 08/29/20 18:37 Fentanyl IVPUSH 08/29/20 18:19 50 mcg ONETIME ONE Administration Fentanyl 50 mcg 08/29/20 21:04 08/29/20 21:23 Sublimaze IVPUSH 08/29/20 21:05 50 mcg ONETIME ONE Administration Sodium Chloride 1,000 mls @ 999 mls/hr 08/29/20 18:18 08/29/20 18:31 Normal Saline IV 08/29/20 19:18 999 mls/hr .Bolus ONE Administration Lorazepam 1 mg 08/29/20 18:41 08/29/20 19:07 Ativan IVPUSH 08/29/20 18:42 1 mg ONETIME ONE Administration Ondansetron HCl 4 mg 08/29/20 18:18 08/29/20 18:36 Zofran IVPUSH 08/29/20 18:19 4 mg ONETIME ONE Administration Potassium Chloride 10 meq 08/29/20 21:16 Klor-Con 10 PO 08/29/20 21:17 ONETIME ONE - Re-Assessments/Exams Free Text/Narrative Re-Assessment/Exam: 08/29/20 21:41 Patient is feeling better. Spasms are less frequent. Departure - Departure Time of Disposition: 21:41 Disposition: Home, Self-Care 01 Condition: Good Clinical Impression: Abdominal spasms - Discharge Information *PRESCRIPTION DRUG MONITORING PROGRAM REVIEWED*: Not Applicable *COPY OF PRESCRIPTION DRUG MONITORING REPORT IN PATIENT OLIVIA: Not Applicable Prescriptions: Dicyclomine [Bentyl] 20 mg PO QIDACANDBED PRN #20 tablet PRN Reason: Abdominal Pain Referrals: PCP,None [Primary Care Provider] - Forms: ED Department Discharge Additional Instructions: The following information is given to patients seen in the emergency department who are being discharged to home. This information is to outline your options for follow-up care. We provide all patients seen in our emergency department with a follow-up referral. The need for follow-up, as well as the timing and circumstances, are variable depending upon the specifics of your emergency department visit. If you don't have a primary care physician on staff, we will provide you with a referral. We always advise you to contact your personal physician following an emergency department visit to inform them of the circumstance of the visit and for follow-up with them and/or the need for any referrals to a consulting specialist. The emergency department will also refer you to a specialist when appropriate. This referral assures that you have the opportunity for follow-up care with a specialist. All of these measure are taken in an effort to provide you with optimal care, which includes your follow-up. Under all circumstances we always encourage you to contact your private physician who remains a resource for coordinating your care. When calling for follow-up care, please make the office aware that this follow-up is from your recent emergency room visit. If for any reason you are refused follow-up, please contact the [facility] Emergency Department at and asked to speak to the emergency department charge nurse. [facility] - General Surgery Professional Building [address] [place] [address], [address] [place] [address] 1. Take 2 potassium tablets with food tomorrow, then 1 daily thereafter 2. Take your dicyclomine before meals and at bedtime for abdominal cramping 3. Drink plenty of clear fluids, BRAT diet (bananas, rice, applesauce and toast) 4. Zofran every 6 hours as needed for nausea and vomiting 5. Follow-up with general surgery here on Monday. Follow instructions provided by [facility] GI service on Monday. Sepsis Event Note (ED) - Evaluation Sepsis Screening Result: No Definite Risk - Focused Exam Vital Signs: Vital Signs Temp Pulse Resp BP Pulse Ox 08/29/20 18:05 35.6 C L 83 18 142/100 H 97
[2020-08-29 19:05] LABS: CARBON DIOXIDE,CO2 26.7 mmol/L (21.0-32.0)
--- NOTE | 2020-08-29 21:03 | CR ---
Indication: No BM for 5 days. Diverticulosis. Crampy pain. Technique: AP supine and upright views of the abdomen and pelvis. Comparison: None Findings: The bowel gas pattern is nonobstructive. No free air is identified. Only a scant amount of bowel gas is present. Impression: Nonobstructed bowel-gas pattern. No free air. Dictated by Maria Luz Jordan MD @ Aug 29 2020 8:57PM Signed by Dr. Maria Luz Jordan @ Aug 29 2020 9:02PM
[2020-08-29] MEDS ORDERED: fentaNYL 100 MCG/2 ML SDV IVPUSH ONE (21:04)
[2020-08-29] MEDS ORDERED: Dicyclomine 10 MG Cap PO ONE (21:15)
[2020-08-29] MEDS ORDERED: Potassium Chloride 10 MEQ Tab.ER PO ONE (21:16)
[2020-08-29] MEDS ORDERED: Ondansetron 4 MG Tab.DIS PO ONE (22:01)
[2020-08-30 01:21] VITALS: BP 138/74; PULSE 72
== END 2020-08-29 22:05 | disposition home or self-care (01) ==
LOC: MW.ED 17:28
DX: R10.12 Left upper quadrant pain (principal); R10.32 Left lower quadrant pain; I10 Essential (primary) hypertension; J45.909 Unspecified asthma, uncomplicated; Z20.828 Contact with and (suspected) exposure to other viral communicable diseases; Z88.0 Allergy status to penicillin; Z88.2 Allergy status to sulfonamides; Z91.018 Allergy to other foods; Z88.8 Allergy status to other drugs, medicaments and biological substances; Z79.899 Other long term (current) drug therapy
CPT/HCPCS: 36415; 74019; 80053; 81001; 85025; 87635; 96374; 96375; 96376; 99284; A9270; J2060; J2405; J3010; J7030; 99283; U0002

== ENCOUNTER 2020-09-06 12:09 | Emergency (ER) | payer OTHER ==
--- NOTE | 2020-09-06 12:10 | EDM.PDOC ---
ED HPI GENERAL MEDICAL PROBLEM - General Chief Complaint: Abdominal Pain Stated Complaint: DIVERTUCULITIS Time Seen by Provider: 09/06/20 12:10 Source of Information: Reports: Patient History Limitations: Reports: No Limitations - History of Present Illness INITIAL COMMENTS - FREE TEXT/NARRATIVE: HISTORY AND PHYSICAL: History of present illness: Patient is a 49-year-old female who presents to the ED today with concern of left-sided abdominal pain that has been an issue since the beginning of July. Patient states that she has had an extensive work-up and states that she has a stricture of her left-sided abdomen in which she is in the process of getting this resected with a general surgeon in [place]. Patient states she also follows with a general surgeon here, Dr. Bone. Patient states that she was seen in the ED on 29 August for a similar pain that she has today. Patient states that she at that time was vomiting and today she has had one episode of vomiting but has been able to eat a full meal since. Patient states her abdominal pain is actually better now that she is here in the emergency room. Patient states that she has been able to have bowel movements and her last bowel movement was just before coming to the emergency room and was normal for her. Patient states that she is taking MiraLAX per Dr. Michele's recommendation to keep her stool softer due to this stricture area of her left-sided colon. Patient denies any other symptoms or concerns. Patient denies fever, chills, chest pain, shortness of breath, or cough. Denies headache, neck stiff ness, change in vision, syncope, or near syncope. Denies nausea, diarrhea, constipation, or dysuria. Has not noted any blood in urine or stool. Patient has been eating and drinking appropriately. Review of systems: As per history of present illness and below otherwise all systems reviewed and negative. Past medical history: As per history of present illness and as reviewed below otherwise noncontributory. Surgical history: As per history of present illness and as reviewed below otherwise noncontributory. Social history: See social history for further information Family history: As per history of present illness and as reviewed below otherwise noncontributory. Physical exam: General: Patient is alert, oriented, and in no acute distress. Patient sitting comfortably on exam table. HEENT: Atraumatic, normocephalic, pupils equal and reactive bilaterally, negative for conjunctival pallor or scleral icterus, mucous membranes moist, TMs normal bilaterally, throat clear, neck supple, nontender, trachea midline. No drooling or trismus noted. No meningeal signs. No hot potato voice noted. Lungs: Clear to auscultation, breath sounds equal bilaterally, chest nontender. Heart: S1S2, regular rate and rhythm without overt murmur Abdomen: Soft, nondistended, nontender. Negative for masses or hepatosplenomegaly. Negative for costovertebral tenderness. Pelvis: Stable nontender. Genitourinary: Deferred. Rectal: Deferred. Skin: Intact, warm, dry. No lesions or rashes noted. Extremities: Atraumatic, negative for cords or calf pain. Neurovascular unremarkable. Neuro: Awake, alert, oriented. Cranial nerves II through XII unremarkable. Cerebellum unremarkable. Motor and sensory unremarkable throughout. Exam nonfocal. Notes: After my assessment of patient, I was going to perform lab work and offered an abdominal pelvic CT scan which patient declines at this time requesting to leave AGAINST MEDICAL ADVICE stating she would rather have an evaluation in [place]. Patient did not receive a lab draw as she left AGAINST MEDICAL ADVICE prior to this occurring. Diagnostics: Left AMA prior to diagnostics Therapeutics: None Prescription: None Impression: Left-sided abdominal pain Left AGAINST MEDICAL ADVICE Plan: Patient left against medical advice prior to discharge Definitive disposition and diagnosis as appropriate pending reevaluation and review of above. Left Lower Abdomen Pain Score (Numeric/FACES): 6 - Related Data Allergies Allergy/AdvReac Type Severity Reaction Status Date / Time diphenhydramine Allergy Other Verified 09/06/20 12:30 [From Benadryl] Penicillins Allergy Anaphylactic Verified 09/06/20 12:30 Shock Sulfa (Sulfonamide Allergy Anaphylactic Verified 09/06/20 12:30 Antibiotics) Shock apple juice Allergy Anaphylactic Uncoded 09/06/20 12:30 Shock Home Meds: Home Meds hydroCHLOROthiazide [Hydrochlorothiazide] 25 mg PO DAILY 06/28/17 [History] Albuterol Sulfate [Albuterol Sulfate Hfa] 2 puff INH ASDIRECTED PRN 08/14/20 [History] Magnesium 250 mg PO DAILY 08/14/20 [History] Nebivolol [Bystolic] 15 mg PO DAILY 08/14/20 [History] Potassium Chloride 10 meq PO DAILY 08/14/20 [History] metroNIDAZOLE 250 mg PO Q6H #44 tablet 08/18/20 [Rx] polyethylene glycoL 3350 [MiraLAX] 17 gm PO DAILY #1 bottle 08/18/20 [Rx] Dicyclomine [Bentyl] 20 mg PO QIDACANDBED PRN #20 tablet 08/29/20 [Rx] Ondansetron [Zofran ODT] 1 tab PO Q6H PRN #8 tab.dis 08/29/20 [Rx] oxyCODONE 5 mg PO Q4HR PRN 08/29/20 [History] Dicyclomine [Bentyl] 20 mg PO 09/06/20 [History] Levofloxacin 750 mg PO 09/06/20 [History] polyethylene glycoL 3350 [MiraLAX] 17 gm PO BID 09/06/20 [History] Past Medical History HEENT History: Reports: None Cardiovascular History: Reports: Blood Clots/VTE/DVT, Hypertension Other Cardiovascular History: DVT L thigh Respiratory History: Reports: Asthma, Sleep Apnea Gastrointestinal History: Reports: None, Diverticulosis Genitourinary History: Reports: None 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: Musculoskeletal History: Reports: Back Pain, Chronic Neurological History: Reports: None Psychiatric History: Reports: Anxiety, Depression Endocrine/Metabolic History: Reports: None Hematologic History: Reports: None Immunologic History: Reports: None Oncologic (Cancer) History: Reports: None Dermatologic History: Reports: None - Infectious Disease History Infectious Disease History: Reports: Chicken Pox - Past Surgical History Head Surgeries/Procedures: Reports: None Female Surgical History: Reports: D&C Musculoskeletal Surgical History: Reports: Other (See Below) Other Musculoskeletal Surgeries/Procedures:: knee sx Social & Family History - Family History Family Medical History: Noncontributory - Caffeine Use Caffeine Use: Reports: None ED ROS GENERAL - Review of Systems Review Of Systems: Comprehensive ROS is negative, except as noted in HPI. ED EXAM, GENERAL - Physical Exam Exam: See Below (see dictation) Course - Vital Signs Last Recorded V/S: Last Vital Signs Temp 96.7 F L 09/06/20 12:37 Pulse 72 09/06/20 12:37 Resp 20 09/06/20 12:37 BP 132/91 H 09/06/20 12:37 Pulse Ox 98 09/06/20 12:37 - Orders/Labs/Meds Orders: Active Orders 24 hr Category Date Time Status Saline Lock Insert [OM.PC] Stat Oth 09/06/20 12:49 Ordered Meds: Medications Discontinued Medications Generic Name Dose Route Start Last Admin Trade Name Freq PRN Reason Stop Dose Admin Sodium Chloride 10 ml 09/06/20 12:49 Saline Flush FLUSH ASDIRECTED PRN Keep Vein Open Sodium Chloride 2.5 ml 09/06/20 12:49 Saline Flush FLUSH ASDIRECTED PRN Keep Vein Open Departure - Departure Time of Disposition: 17:58 Disposition: Against Medical Advice 07 Clinical Impression: Left against medical advice Abdominal pain Qualifiers: Abdominal location: left lower quadrant Qualified Code(s): R10.32 - Left lower quadrant pain - Discharge Information Referrals: Brynn Tee DO [Primary Care Provider] - Forms: ED Department Discharge Additional Instructions: Patient left AGAINST MEDICAL ADVICE prior to discharge Sepsis Event Note (ED) - Focused Exam Vital Signs: Vital Signs Temp Pulse Resp BP Pulse Ox 09/06/20 12:37 96.7 F L 72 20 132/91 H 98 - My Orders Last 24 Hours: My Active Orders 09/06/20 12:49 Saline Lock Insert [OM.PC] Stat - Assessment/Plan Last 24 Hours: My Active Orders 09/06/20 12:49 Saline Lock Insert [OM.PC] Stat
[2020-09-06 12:42] VITALS: BP 132/91; PULSE 72
[2020-09-06] MEDS ORDERED: Sodium Chloride 0.9% 2.5 ML Syringe FLUSH PRN (12:49)
[2020-09-06] MEDS ORDERED: Sodium Chloride 0.9% 10 ML Syringe FLUSH PRN (12:49)
== END 2020-09-06 13:28 | disposition left against medical advice (07) ==
LOC: MW.ED 12:09
DX: R10.32 Left lower quadrant pain (principal); I10 Essential (primary) hypertension; J45.909 Unspecified asthma, uncomplicated; F41.9 Anxiety disorder, unspecified; F32.9 Major depressive disorder, single episode, unspecified; Z88.2 Allergy status to sulfonamides; Z88.0 Allergy status to penicillin; Z91.018 Allergy to other foods; Z79.899 Other long term (current) drug therapy; Z53.20 Procedure and treatment not carried out because of patient's decision for unspecified reasons
CPT/HCPCS: 99283

== ENCOUNTER 2021-06-04 23:20 | Emergency (ER) | payer OTHER ==
[2021-06-04] MEDS ORDERED: Lactated Ringers 1,000 ML IV SCH (23:45)
[2021-06-05 00:09] LABS: BLOOD UREA NITROGEN,BUN 14 mg/dL (7.0-18.0); CARBON DIOXIDE,CO2 29.2 mmol/L (21.0-32.0); CHLORIDE,CL 101 mmol/L (98-107); GLUCOSE RANDOM 110 mg/dL (74-106); LIPASE 83 U/L (73-393); POTASSIUM,K 4.8 mmol/L (3.5-5.1); SODIUM,NA 139 mmol/L (136-145)
[2021-06-05 00:28] LABS: CORONAVIRUS COVID-19 NAA NEGATIVE (NEGATIVE); INFLUENZA A NAA NEGATIVE (NEGATIVE); INFLUENZA B NAA NEGATIVE (NEGATIVE)
[2021-06-05] MEDS ORDERED: Iopamidol 755 MG/ML 500 ML Multipack Bottle IVPUSH STA (00:28)
[2021-06-05] MEDS ORDERED: Morphine 4 MG/ML Syringe IVPUSH ONE (00:59)
--- NOTE | 2021-06-05 01:28 | CT ---
INDICATION: Right lower quadrant pain. COMPARISON: CT of the abdomen and pelvis from 08/28/2020 TECHNIQUE: CT examination of the abdomen and pelvis was performed with the uneventful intravenous administration of 100 cc of Isovue 370 while 2.5 mm thick axial sections were obtained from the lung bases through the pubic symphysis. Oral contrast was not administered. Please note that all CT scans at this facility use dose modulation, iterative reconstruction, and/or weight-based dosing when appropriate to reduce radiation dose to as low as reasonably achievable. FINDINGS: In the abdomen, the liver, spleen, pancreas, and adrenals are normal in appearance. The kidneys are normal in appearance. The gallbladder is normal in appearance. The abdominal aorta is normal in caliber with no sign of dilatation. There is no sign of retroperitoneal mass or adenopathy. The stomach, loops of small bowel, and right colon in the abdomen are normal in appearance. The previously seen inflammation involving the descending colon has resolved, with new surgical leandro from colonic resection and anastomosis. There is no sign of any structure or obstruction. There is a new small fat containing superior abdominal ventral hernia with neck measuring 1.4 centimeters in diameter adjacent to a new midline anterior abdominal wall and upper pelvic wall incision. In the pelvis, the appendix is normal in appearance with no sign of inflammatory process. There is stable mild sigmoid diverticulosis without evidence of diverticulitis. There is a new small bowel anastomosis in the anterior mid pelvis to the left of midline with no sign of any structure. The rest of the loops of small bowel and colon in the pelvis are otherwise normal in appearance. The uterus and adnexal regions are normal in appearance. The urinary bladder is normal in appearance. There is no sign of pelvic or inguinal mass or adenopathy. There is no sign of free air or free fluid in the abdomen or pelvis. The lung bases are clear. There is stable grade 2 anterior subluxation of L5 on S1 related to moderate facet arthropathy. There is no change in severe L5-S1 disc degenerative disease. IMPRESSION: Nothing seen to explain the patient`s right lower quadrant pain. Normal appearance of the appendix and right urinary system. Normal appearance of the right adnexal region. CT of the abdomen shows resolution of previously seen prominent inflammation of the descending colon with new changes of colonic resection and anastomosis. No sign of stricture or obstruction. New small fat containing superior anterior abdominal midline ventral hernia. CT of the pelvis shows stable mild sigmoid diverticulosis with no sign of diverticulitis. New small bowel anastomosis in the left paramedian anterior mid pelvis. Please note that all CT scans at this facility use dose modulation, iterative reconstruction, and/or weight-based dosing when appropriate to reduce radiation dose to as low as reasonably achievable. Dictated by Arron Jurado MD @ 06/05/2021 1:25:[address] Arron Jurado @ Jun 05 2021 1:25AM
--- NOTE | 2021-06-05 02:06 | EDM.PDOC ---
ED HPI GENERAL MEDICAL PROBLEM - General Chief Complaint: Abdominal Pain Stated Complaint: RIGHT SIDE PAIN, SICK Time Seen by Provider: 06/04/21 23:30 - History of Present Illness INITIAL COMMENTS - FREE TEXT/NARRATIVE: CHIEF COMPLAINT(S): Abdominal pain HISTORY OF PRESENT ILLNESS: This is a 50-year-old woman with a past medical history of bowel perforation status post bowel resection status post ileostomy and ileostomy reversal who comes to the emergency department with a chief complaint of abdominal pain. The patient states that approximately 2 hours prior to arrival she started to experience pain in her right lower quadrant which she describes as sharp, constant rated 7 out of 10. She denies any radiation of this pain. She denies any dysuria, hematuria, vaginal bleeding or vaginal discharge. She denies any nausea, vomiting, diarrhea, medic easier, hematemesis or bilious emesis. She states that she is mainly concerned because last time she waited for abdominal pain she ended up with a bowel perforation. She denies any chest pain, shortness of breath. She denies any fevers or chills. She states that the pain is not exacerbated any anything and there is no relieving factors. REVIEW OF SYSTEMS: Constitutional: Denies fever, chills. Eyes: Denies eye pain Ears, Nose, Mouth, & Throat: Denies earache Cardiovascular: Denies chest pain Respiratory: Denies shortness of breath Gastrointestinal: Positive for right lower quadrant abdominal pain. Denies nausea, vomiting, diarrhea, medicates you, hematemesis, bilious emesis, melena Genitourinary: Denies hematuria Skin:Denies a rash MSK: Denies joint pain Neurological: Denies blurred vision Psychiatric: Denies depression PAST MEDICAL HISTORY: As per history of present illness and as reviewed below otherwise noncontributory. SURGICAL HISTORY: As per history of present illness and as reviewed below otherwise noncontributory. SOCIAL HISTORY: As per history of present illness and as reviewed below otherwise noncontributory. FAMILY HISTORY: As per history of present illness and as reviewed below otherwise noncontributory. EXAMINATION OF ORGAN SYSTEMS/BODY AREAS: Constitutional: Blood pressure is 179/105, heart rate 92, respiratory rate 18 with an oxygen saturation of 100% on room air. Temperature 36.0 General: Overall well-appearing woman who is in no acute distress Psychiatric: Appropriate mood and affect. Eyes: No scleral icterus or conjunctival erythema ENMT: Moist mucous membranes. No pharyngeal erythema Cardiovascular: Regular, rate, and rhythm. No gallops, murmurs, or rubs. Bilateral upper extremity pulses symmetric and intact. No peripheral edema. No JVD. Respiratory: Lungs clear to auscultation bilaterally. No wheezes, rales, or rhonchi. Gastrointestinal: Soft, nondistended, mild tenderness to palpation in the right lower quadrant and right flank. Nondistended. No rebound or guarding. Normoactive bowel sounds Genitourinary: No suprapubic tenderness Musculoskeletal: Normal range of motion. Skin: No lesions or abrasions. Neurological: Alert, GCS 15 MEDICAL DECISION MAKING AND COURSE IN THE ED WITH INTERPRETATION/REVIEW OF DIAGNOSTIC STUDIES: This is a 50-year-old and with a past medical history of bowel perforation status post bowel resection and ileostomy with reversal of ileostomy who comes to the emergency department with any acute onset right lower quadrant abdominal pain who is mildly hypertensive but overall appears well. Given her prior history we do have to be concerned about bowel obstruction given possible adhesions versus recurrent bowel perforation or other signs of infectio n. Will obtain a CT abdomen pelvis with contrast for further evaluation. Differential also includes nephrolithiasis, pyelonephritis we will obtain urinalysis, CBC, CMP, coags and a Covid swab. We will provide the patient with 1 L of lactated Ringer's and 4 mg of IV morphine. Laboratory analysis was unremarkable. Urinalysis revealed moderate leukocyte esterase with no evidence of infection including nitrites or bacteria. Covid influenza are negative. The radiological images were viewed by myself along with reading the report from the radiologist. Abdomen pelvis CT reveals no acute abdominal process. There is resolving inflammation of the descending colon with new changes of colonic resection and anastomosis. No stricture or obstruction. I did discuss the results with the patient. At this time I do believe the patient is stable for discharge. She is to use [id number] pain medications as needed. She is to follow-up with her primary care physician. She was given strict return precautions. DISPOSITION: The patient was discharged home in stable condition. The patient will follow up with primary care physician in 3 to 5 days CONDITION: Fair PROCEDURES: None FINAL IMPRESSION(S)/DIAGNOSES: 1. Acute abdominal pain Antonio Rosas M.D. RLQ Pain Score (Numeric/FACES): 7 - Related Data Allergies Allergy/AdvReac Type Severity Reaction Status Date / Time diphenhydramine Allergy Other Verified 06/04/21 23:30 [From Benadryl] Penicillins Allergy Anaphylactic Verified 06/04/21 23:30 Shock Sulfa (Sulfonamide Allergy Anaphylactic Verified 06/04/21 23:30 Antibiotics) Shock apple juice Allergy Anaphylactic Uncoded 09/06/20 12:30 Shock Home Meds: Home Meds Losartan Potassium 50 mg PO DAILY 06/04/21 [History] Magnesium 250 mg PO DAILY 06/04/21 [History] Multivitamin [One-Daily Multi-Vitamin] 1 tab PO DAILY 06/04/21 [History] Potassium Chloride 10 meq PO DAILY 06/04/21 [History] buPROPion HCL [Wellbutrin Xl] 300 mg PO DAILY 06/04/21 [History] Past Medical History HEENT History: Reports: None Cardiovascular History: Reports: Blood Clots/VTE/DVT, Hypertension Other Cardiovascular History: DVT L thigh Respiratory History: Reports: Asthma, Sleep Apnea Gastrointestinal History: Reports: Diverticulosis Genitourinary History: Reports: None [employer] History: Reports: Musculoskeletal History: Reports: Back Pain, Chronic Neurological History: Reports: None Psychiatric History: Reports: Anxiety, Depression Endocrine/Metabolic History: Reports: None Hematologic History: Reports: None Immunologic History: Reports: None Oncologic (Cancer) History: Reports: None Dermatologic History: Reports: None - Infectious Disease History Infectious Disease History: Reports: Chicken Pox Other Infectious Disease History: Chicken pox as a child - Past Surgical History Head Surgeries/Procedures: Reports: None HEENT Surgical History: Reports: None Cardiovascular Surgical History: Reports: None Respiratory Surgical History: Reports: None GI Surgical History: Reports: Other (See Below) Other GI Surgeries/Procedures: illestomy and reversal, colon resection Female Surgical History: Reports: D&C Musculoskeletal Surgical History: Reports: Other (See Below) Other Musculoskeletal Surgeries/Procedures:: knee sx Social & Family History - Family History Family Medical History: No Pertinent Family History - Tobacco Use Tobacco Use Status *Q: Never Tobacco User Second Hand Smoke Exposure: No - Caffeine Use Caffeine Use: Reports: None - Recreational Drug Use Recreational Drug Use: No ED ROS GENERAL - Review of Systems Review Of Systems: See Below ED EXAM, GENERAL - Physical Exam Exam: See Below Course - Vital Signs Last Recorded V/S: Last Vital Signs Temp 37.3 C 06/04/21 23:37 Pulse 87 06/05/21 02:14 Resp 18 06/05/21 02:14 BP 171/101 H 06/05/21 02:14 Pulse Ox 99 06/05/21 02:14 - Orders/Labs/Meds Labs: Laboratory Tests 06/04/21 06/04/21 06/04/21 Range/Units 23:35 23:35 23:35 WBC 6.07 (4.0-11.0) K/uL RBC 4.28 L (4.30-5.90) M/uL Hgb 13.5 (12.0-16.0) g/dL Hct 40.9 (36.0-46.0) % MCV 95.6 (80.0-98.0) fL MCH 31.5 (27.0-32.0) pg MCHC 33.0 (31.0-37.0) g/dL RDW Std Deviation 48.1 (28.0-62.0) fl RDW Coeff of Akash 14 (11.0-15.0) % Plt Count 233 (150-400) K/uL MPV 9.30 (7.40-12.00) fL Neut % (Auto) 50.9 (48.0-80.0) % Lymph % (Auto) 36.6 (16.0-40.0) % [place] % (Auto) 8.2 (0.0-15.0) % Eos % (Auto) 3.8 (0.0-7.0) % Baso % (Auto) 0.5 (0.0-1.5) % Neut # (Auto) 3.1 (1.4-5.7) K/uL Lymph # (Auto) 2.2 (0.6-2.4) K/uL [place] # (Auto) 0.5 (0.0-0.8) K/uL Eos # (Auto) 0.2 (0.0-0.7) K/uL Baso # (Auto) 0.0 (0.0-0.1) K/uL Nucleated RBC % 0.0 /100WBC Nucleated RBCs # 0 K/uL INR 0.92 Sodium 139 (136-145) mmol/L Potassium 4.8 (3.5-5.1) mmol/L Chloride 101 (98-107) mmol/L Carbon Dioxide 29.2 (21.0-32.0) mmol/L BUN 14 (7.0-18.0) mg/dL Creatinine 0.8 (0.6-1.0) mg/dL Est Cr Clr Drug Dosing 68.05 mL/min Estimated GFR (MDRD) > 60.0 ml/min Glucose 110 H (74-106) mg/dL Lactic Acid (0.4-2.0) mmol/L Calcium 9.4 (8.5-10.1) mg/dL Magnesium 1.9 (1.8-2.4) mg/dL Total Bilirubin 0.4 (0.2-1.0) mg/dL AST 37 (15-37) IU/L ALT 32 (14-63) IU/L Alkaline Phosphatase 97 (46-116) U/L Total Protein 8.1 (6.4-8.2) g/dL Albumin 4.0 (3.4-5.0) g/dL Globulin 4.1 H (2.6-4.0) g/dL Albumin/Globulin Ratio 1.0 (0.9-1.6) Lipase 83 (73-393) U/L Urine Color Urine Appearance Urine pH (5.0-8.0) Ur Specific [place] (1.001-1.035) Urine Protein (NEGATIVE) mg/dL Urine Glucose (UA) (NEGATIVE) mg/dL Urine Ketones (NEGATIVE) mg/dL Urine Occult Blood (NEGATIVE) Urine Nitrite (NEGATIVE) Urine Bilirubin (NEGATIVE) Urine Urobilinogen (<2.0) EU/dL Ur Leukocyte Esterase (NEGATIVE) Urine RBC (0-2/HPF) Urine WBC (0-5/HPF) Ur Epithelial Cells (NONE-FEW) Urine Bacteria (NEGATIVE) Influenza Type A RNA (NEGATIVE) Influenza Type B RNA (NEGATIVE) SARS-CoV-2 RNA (DUNIA) (NEGATIVE) 06/04/21 06/04/21 06/05/21 Range/Units 23:35 23:40 01:08 WBC (4.0-11.0) K/uL RBC (4.30-5.90) M/uL Hgb (12.0-16.0) g/dL Hct (36.0-46.0) % MCV (80.0-98.0) fL MCH (27.0-32.0) pg MCHC (31.0-37.0) g/dL RDW Std Deviation (28.0-62.0) fl RDW Coeff of Akash (11.0-15.0) % Plt Count (150-400) K/uL MPV (7.40-12.00) fL Neut % (Auto) (48.0-80.0) % Lymph % (Auto) (16.0-40.0) % [place] % (Auto) (0.0-15.0) % Eos % (Auto) (0.0-7.0) % Baso % (Auto) (0.0-1.5) % Neut # (Auto) (1.4-5.7) K/uL Lymph # (Auto) (0.6-2.4) K/uL [place] # (Auto) (0.0-0.8) K/uL Eos # (Auto) (0.0-0.7) K/uL Baso # (Auto) (0.0-0.1) K/uL Nucleated RBC % /100WBC Nucleated RBCs # K/uL INR Sodium (136-145) mmol/L Potassium (3.5-5.1) mmol/L Chloride (98-107) mmol/L Carbon Dioxide (21.0-32.0) mmol/L BUN (7.0-18.0) mg/dL Creatinine (0.6-1.0) mg/dL Est Cr Clr Drug Dosing mL/min Estimated GFR (MDRD) ml/min Glucose (74-106) mg/dL Lactic Acid 1.8 (0.4-2.0) mmol/L Calcium (8.5-10.1) mg/dL Magnesium (1.8-2.4) mg/dL Total Bilirubin (0.2-1.0) mg/dL AST (15-37) IU/L ALT (14-63) IU/L Alkaline Phosphatase (46-116) U/L Total Protein (6.4-8.2) g/dL Albumin (3.4-5.0) g/dL Globulin (2.6-4.0) g/dL Albumin/Globulin Ratio (0.9-1.6) Lipase (73-393) U/L Urine Color YELLOW Urine Appearance SLT CLOUDY Urine pH 7.0 (5.0-8.0) Ur Specific [place] 1.010 (1.001-1.035) Urine Protein NEGATIVE (NEGATIVE) mg/dL Urine Glucose (UA) NEGATIVE (NEGATIVE) mg/dL Urine Ketones NEGATIVE (NEGATIVE) mg/dL Urine Occult Blood NEGATIVE (NEGATIVE) Urine Nitrite NEGATIVE (NEGATIVE) Urine Bilirubin NEGATIVE (NEGATIVE) Urine Urobilinogen 0.2 (<2.0) EU/dL Ur Leukocyte Esterase MODERATE H (NEGATIVE) Urine RBC 0-1 (0-2/HPF) Urine WBC 1-3 (0-5/HPF) Ur Epithelial Cells FEW (NONE-FEW) Urine Bacteria RARE (NEGATIVE) Influenza Type A RNA NEGATIVE (NEGATIVE) Influenza Type B RNA NEGATIVE (NEGATIVE) SARS-CoV-2 RNA (DUNIA) NEGATIVE (NEGATIVE) Meds: Medications Discontinued Medications Generic Name Dose Route Start Last Admin Trade Name Freq PRN Reason Stop Dose Admin Lactated Ringer's 1,000 mls @ 999 mls/hr 06/04/21 23:45 06/04/21 23:39 Ringers, Lactated IV 999 mls/hr ASDIRECTED JENNIFER Administration Iopamidol 100 ml 06/05/21 00:28 Iopamidol 755 Mg/Ml 500 Ml Multipack Bottle IVPUSH 06/05/21 00:29 ONETIME STA Morphine Sulfate 4 mg 06/05/21 00:59 06/05/21 01:08 Morphine 4 Mg/Ml Syringe IVPUSH 06/05/21 01:00 4 mg ONETIME ONE Administration Departure - Departure Time of Disposition: 02:05 Disposition: Home, Self-Care 01 Condition: Fair Clinical Impression: Abdominal pain - Discharge Information *PRESCRIPTION DRUG MONITORING PROGRAM REVIEWED*: No *COPY OF PRESCRIPTION DRUG MONITORING REPORT IN PATIENT OLIVIA: No Instructions: Abdominal Pain, Adult, [id number] Referrals: Maninder Gannon DO [Primary Care Provider] - Forms: ED Department Discharge Additional Instructions: You were evaluated today on an emergent basis. At this time all of your work-up was negative. At this time I do recommend that she continue to monitor your symptoms. Please use Tylenol and Motrin for pain relief. If you have any worsening pain, fever, blood in your stool I recommend you return to the emergency department. Otherwise please follow-up with your primary care physician in 3 to 5 days. [facility] [address] [place] [address] [facility] [address] [place] [address] The patient is informed of any results of their evaluation and diagnostic workup and all questions are answered. They are given discharge instructions and return precautions. The patient is stable for discharge. The patient states they understand and agree with the plan and that they will return if their symptoms get worse or if they have any new concerns. The following information is given to patients seen in the emergency department who are being discharged to home. This information is to outline your options for follow-up care. We provide all patients seen in our emergency department with a follow-up referral. The need for follow-up, as well as the timing and circumstances, are variable depending upon the specifics of your emergency department visit. If you don't have a primary care physician on staff, we will provide you with a referral. We always advise you to contact your personal physician following an emergency department visit to inform them of the circumstance of the visit and for follow-up with them and/or the need for any referrals to a consulting specialist. The emergency department will also refer you to a specialist when appropriate. This referral assures that you have the opportunity for follow-up care with a specialist. All of these measure are taken in an effort to provide you with optimal care, which includes your follow-up. Under all circumstances we always encourage you to contact your private physician who remains a resource for coordinating your care. When calling for follow-up care, please make the office aware that this follow-up is from your recent emergency room visit. If for any reason you are refused follow-up, please contact the Emergency Department at and asked to speak to the emergency department charge nurse. Sepsis Event Note (ED) - Evaluation Sepsis Screening Result: Possible Sepsis Risk
[2021-06-05 02:15] VITALS: BP 171/101; PULSE 87
== END 2021-06-05 02:15 | disposition home or self-care (01) ==
LOC: MW.ED 23:20
DX: R10.31 Right lower quadrant pain (principal); I10 Essential (primary) hypertension; Z79.899 Other long term (current) drug therapy; Z88.0 Allergy status to penicillin; Z88.2 Allergy status to sulfonamides; Z88.6 Allergy status to analgesic agent; Z91.018 Allergy to other foods; Z20.822 Contact with and (suspected) exposure to COVID-19
CPT/HCPCS: 0240U; 36415; 74177; 80053; 81001; 83605; 83690; 83735; 85025; 85610; 96374; 99284; J2270; J7120

== ENCOUNTER 2022-05-04 14:41 | Emergency (ER) | payer OTHER ==
[2022-05-04] MEDS ORDERED: Sodium Chloride 0.9% 1,000 ML IV ONE (15:27)
[2022-05-04] MEDS: Sodium Chloride 0.9% 2.5 ML Syringe FLUSH PRN ×2 (15:49→16:29)
[2022-05-04] MEDS: Sodium Chloride 0.9% 10 ML Syringe FLUSH PRN ×2 (15:49→16:29)
[2022-05-04] MEDS ORDERED: Ketorolac 30 MG/ML SDV IVPUSH ONE (16:10)
[2022-05-04] MEDS ORDERED: Ondansetron 4 MG/2 ML SDV IVPUSH ONE (16:10)
[2022-05-04 16:26] LABS: CARBON DIOXIDE,CO2 30.6 mmol/L (21.0-32.0); POTASSIUM,K 3.4 mmol/L (3.5-5.1)
[2022-05-04 19:21] VITALS: BP 147/96; PULSE 73
== END 2022-05-04 17:47 | disposition home or self-care (01) ==
LOC: MW.ED 14:41
DX: R10.32 Left lower quadrant pain (principal); I10 Essential (primary) hypertension; F41.9 Anxiety disorder, unspecified; F32.A Depression, unspecified; Z79.899 Other long term (current) drug therapy; Z88.0 Allergy status to penicillin; Z88.2 Allergy status to sulfonamides; Z91.018 Allergy to other foods; Z88.8 Allergy status to other drugs, medicaments and biological substances
CPT/HCPCS: 36415; 74176; 80053; 81001; 84703; 85025; 96374; 96375; 99284; J1885; J2405; J3490; J7030

== ENCOUNTER 2022-12-20 10:07 | Emergency (ER) | payer OTHER ==
[2022-12-20] MEDS ORDERED: HYDROmorphone 1 MG/ML Syringe IM ONE (11:05)
[2022-12-20 12:41] VITALS: BP 146/94; PULSE 80
== END 2022-12-20 12:37 | disposition home or self-care (01) ==
LOC: MW.ED 10:07
DX: M54.50 Low back pain, unspecified (principal); G89.29 Other chronic pain; I10 Essential (primary) hypertension; Z88.0 Allergy status to penicillin; Z88.2 Allergy status to sulfonamides; Z91.018 Allergy to other foods; Z88.8 Allergy status to other drugs, medicaments and biological substances; Z79.899 Other long term (current) drug therapy
CPT/HCPCS: 72128; 72131; 96372; 99283; J1170

== ENCOUNTER 2023-01-09 07:45 | Emergency (ER) | payer OTHER ==
[2023-01-09] MEDS ORDERED: Albuterol/Ipratropium 4 GM Inhalation Spray INH STA (07:47)
[2023-01-09] MEDS ORDERED: Losartan 50 MG Tab PO ONE (08:11)
[2023-01-09 08:26] LABS: POTASSIUM,K 3.9 mmol/L (3.5-5.1)
[2023-01-09 08:58] LABS: CORONAVIRUS COVID-19 NAA NEGATIVE (NEGATIVE); INFLUENZA A NAA NEGATIVE (NEGATIVE); INFLUENZA B NAA NEGATIVE (NEGATIVE)
[2023-01-09] MEDS ORDERED: Iopamidol 755 MG/ML 500 ML Multipack Bottle IVPUSH STA (09:02)
[2023-01-09 09:49] VITALS: BP 169/66; PULSE 84
== END 2023-01-09 09:48 | disposition home or self-care (01) ==
LOC: MW.ED 07:45
DX: R06.02 Shortness of breath (principal); R07.89 Other chest pain; I10 Essential (primary) hypertension; J45.909 Unspecified asthma, uncomplicated; Z88.8 Allergy status to other drugs, medicaments and biological substances; Z88.0 Allergy status to penicillin; Z88.2 Allergy status to sulfonamides; Z91.018 Allergy to other foods; Z79.899 Other long term (current) drug therapy; Z20.822 Contact with and (suspected) exposure to COVID-19
CPT/HCPCS: 0240U; 36415; 71045; 71275; 80053; 82803; 83880; 84484; 85025; 85379; 93005; 99285; A9270; Q9967; 93010; 99284

== ENCOUNTER 2023-02-20 13:12 | Emergency (ER) | payer OTHER ==
[2023-02-20] MEDS ORDERED: Morphine 4 MG/ML Syringe IVPUSH ONE (13:43)
[2023-02-20] MEDS ORDERED: Ondansetron 4 MG/2 ML SDV IVPUSH ONE (13:43)
[2023-02-20] MEDS ORDERED: Sodium Chloride 0.9% 1,000 ML IV ONE (13:43)
[2023-02-20 14:17] LABS: CARBON DIOXIDE,CO2 26.3 mmol/L (21.0-32.0); POTASSIUM,K 3.8 mmol/L (3.5-5.1)
[2023-02-20] MEDS ORDERED: Iopamidol 755 MG/ML 500 ML Multipack Bottle IVPUSH ONE (16:14)
[2023-02-20 17:51] VITALS: BP 174/99; PULSE 80
== END 2023-02-20 17:52 | disposition home or self-care (01) ==
LOC: MW.ED 13:12
DX: K42.9 Umbilical hernia without obstruction or gangrene (principal); J45.909 Unspecified asthma, uncomplicated; I10 Essential (primary) hypertension; Z79.899 Other long term (current) drug therapy; Z88.0 Allergy status to penicillin; Z88.2 Allergy status to sulfonamides; Z91.018 Allergy to other foods; Z88.8 Allergy status to other drugs, medicaments and biological substances
CPT/HCPCS: 36415; 74177; 80053; 83605; 83690; 83735; 85025; 96361; 96374; 96375; 99284; J2270; J2405; J7030; Q9967

== ENCOUNTER 2023-05-24 14:38 | Emergency (ER) | payer OTHER ==
[2023-05-24] MEDS ORDERED: Oxymetazoline 0.05% Nasal Spray 30 ML Bottle NAS ONE (15:40)
[2023-05-24 17:39] VITALS: BP 144/92; PULSE 89
== END 2023-05-24 17:38 | disposition home or self-care (01) ==
LOC: MW.ED 14:38
DX: R04.0 Epistaxis (principal); I10 Essential (primary) hypertension; J45.909 Unspecified asthma, uncomplicated; Z79.899 Other long term (current) drug therapy; Z88.8 Allergy status to other drugs, medicaments and biological substances; Z88.0 Allergy status to penicillin; Z88.2 Allergy status to sulfonamides; Z91.018 Allergy to other foods
CPT/HCPCS: 99283; A9270

== ENCOUNTER 2024-05-19 08:47 | Emergency (ER) | payer OTHER ==
[2024-05-19] MEDS ORDERED: Ibuprofen 600 MG Tab PO ONE (09:08)
[2024-05-19 09:14] LABS: BASOPHILS ABSOLUTE AUTO 0.07 K/uL (0.00-0.20); BASOPHILS PERCENT AUTO 0.7 % (0.0-1.0); EOSINOPHILS ABSOLUTE AUTO 0.19 K/uL (0.00-0.45); EOSINOPHILS PERCENT AUTO 1.8 % (0.0-6.0); HEMATOCRIT 43.8 % (37.0-47.0); HEMOGLOBIN 15.2 g/dL (12.0-16.0); IMMATURE GRAN ABSOLUTE AUTO 0.03 K/uL (0.00-0.05); IMMATURE GRAN PERCENT AUTO 0.3 % (0.0-0.4); LYMPHOCYTES ABSOLUTE AUTO 1.73 K/uL (1.00-4.80); LYMPHOCYTES PERCENT AUTO 16.8 % (24.0-44.0); MEAN CORPUSCULAR HEMOGLOBIN 31.5 pg (28.0-32.0); MEAN CORPUSCULAR HGB CONC 34.7 g/dL (32.0-36.0); MEAN CORPUSCULAR VOLUME 90.9 fL (83.0-99.0); MEAN PLATELET VOLUME 8.4 fL (9.4-12.3); MONOCYTES ABSOLUTE AUTO 0.76 K/uL (0.00-0.80); MONOCYTES PERCENT AUTO 7.4 % (0.0-8.0); NEUTROPHILS ABSOLUTE AUTO 7.54 K/uL (1.80-7.70); PLATELET COUNT,PLT 329 K/uL (150-400); RED BLOOD CELL COUNT 4.82 M/uL (4.10-5.30); WHITE BLOOD CELL COUNT,WBC 10.32 K/uL (3.9-11.3)
[2024-05-19] MEDS: Lidocaine 4% 1 each Patch TOP ONE (09:23)
[2024-05-19] MEDS: Diazepam 2 MG Tab PO ONE (09:23)
[2024-05-19 09:38] LABS: A/G RATIO 1.1 (0.9-1.6); ALBUMIN 4.3 g/dL (3.4-5.0); BILIRUBIN TOTAL 1.1 mg/dL (0.2-1.0); CALCIUM 9.3 mg/dL (8.5-10.1); CARBON DIOXIDE,CO2 25.2 mmol/L (21.0-32.0); CREATININE 0.9 mg/dL (0.6-1.0); EST CRCL DRUG DOSING (CG) 55.86 mL/min; POTASSIUM,K 3.8 mmol/L (3.5-5.1); PROTEIN TOTAL,TP 8.2 g/dL (6.4-8.2)
[2024-05-19] MEDS: Ibuprofen 400 MG Tab PO ONE (10:03)
[2024-05-19] MEDS: Acetaminophen/HYDROcodone 325-5 MG Tab PO ONE (11:00)
[2024-05-19 14:15] VITALS: BP 164/144; PULSE 92
== END 2024-05-19 14:15 | disposition home or self-care (01) ==
LOC: MW.ED 08:47
DX: S32.029A Unspecified fracture of second lumbar vertebra, initial encounter for closed fracture (principal); I10 Essential (primary) hypertension; Z75.8 Other problems related to medical facilities and other health care; Z88.6 Allergy status to analgesic agent; Z88.8 Allergy status to other drugs, medicaments and biological substances; Z88.2 Allergy status to sulfonamides; Z88.0 Allergy status to penicillin; Z91.018 Allergy to other foods; Z79.51 Long term (current) use of inhaled steroids; Z79.899 Other long term (current) drug therapy; W01.0XXA Fall on same level from slipping, tripping and stumbling without subsequent striking against object, initial encounter
CPT/HCPCS: 36415; 72100; 80053; 85025; 99283; A9270; 99284

== ENCOUNTER 2025-07-25 20:30 | Emergency (ER) | payer BC, OTHER ==
[2025-07-25 21:08] LABS: BASOPHILS ABSOLUTE AUTO 0.07 K/uL (0.00-0.20); BASOPHILS PERCENT AUTO 0.7 % (0.0-1.0); EOSINOPHILS ABSOLUTE AUTO 0.23 K/uL (0.00-0.45); EOSINOPHILS PERCENT AUTO 2.3 % (0.0-6.0); IMMATURE GRAN ABSOLUTE AUTO 0.04 K/uL (0.00-0.05); IMMATURE GRAN PERCENT AUTO 0.4 % (0.0-0.4); LYMPHOCYTES ABSOLUTE AUTO 2.18 K/uL (1.00-4.80); LYMPHOCYTES PERCENT AUTO 21.6 % (24.0-44.0); MEAN PLATELET VOLUME 8.6 fL (9.4-12.3); MONOCYTES ABSOLUTE AUTO 0.97 K/uL (0.00-0.80); MONOCYTES PERCENT AUTO 9.6 % (0.0-8.0); NEUTROPHILS ABSOLUTE AUTO 6.61 K/uL (1.80-7.70); NEUTROPHILS PERCENT AUTO 65.4 % (41.0-71.0); NRBC ABSOLUTE 0.00 K/uL (0.00-0.02); NRBC PERCENT 0.0 /100WBC (0.0-0.2); PLATELET COUNT,PLT 296 K/uL (150-400); RED BLOOD CELL COUNT 4.31 M/uL (4.10-5.30); WHITE BLOOD CELL COUNT,WBC 10.10 K/uL (3.9-11.3)
[2025-07-25 22:44] VITALS: BP 177/104; PULSE 72
== END 2025-07-25 22:48 | disposition home or self-care (01) ==
LOC: MW.ED 20:30
DX: R04.0 Epistaxis (principal); J45.909 Unspecified asthma, uncomplicated; Z88.2 Allergy status to sulfonamides; Z88.0 Allergy status to penicillin; Z88.8 Allergy status to other drugs, medicaments and biological substances; Z79.899 Other long term (current) drug therapy
CPT/HCPCS: 36415; 85025; 99284; A9270; 99283

== ENCOUNTER 2025-07-28 08:02 | Emergency (ER) | payer BC ==
[2025-07-28 09:18] LABS: GLUCOSE,URINE NEGATIVE (NEGATIVE); OCCULT BLOOD,URINE TRACE-LYSED (NEGATIVE)
[2025-07-28 09:23] LABS: APPEARANCE,URINE HAZY
[2025-07-28 09:57] LABS: EPITHELIAL CELLS,URINE FEW (NONE-FEW)
[2025-07-28 12:08] VITALS: BP 144/97; PULSE 81
== END 2025-07-28 12:08 | disposition home or self-care (01) ==
LOC: MW.ED 08:02
DX: R04.0 Epistaxis (principal); F41.9 Anxiety disorder, unspecified; I10 Essential (primary) hypertension; Z88.8 Allergy status to other drugs, medicaments and biological substances; Z88.0 Allergy status to penicillin; Z88.2 Allergy status to sulfonamides; Z91.018 Allergy to other foods; Z79.899 Other long term (current) drug therapy
CPT/HCPCS: 81001; 99283